=== PATIENT | female | born 1960 | race Caucasian/White ===

== ENCOUNTER 2024-01-12 12:51 | Emergency (ER) | payer OTHER, SELFPAY ==
--- NOTE | ~2024-01-12 | XR_ITS ---
EXAMINATION: XR CHEST CLINICAL INFORMATION: Shortness of breath. Wheezing. COMPARISON: None available. TECHNIQUE: Frontal view of the chest was obtained. FINDINGS: Heart size is normal. There is no consolidation. There is no large pleural effusion or pneumothorax. No acute osseous abnormality. XR/XR chest 1V IMPRESSION: No acute cardiopulmonary disease.
[2024-01-12 13:04] VITALS: BP 155/76; PULSE 75; RESP 18; TEMP 36.4; O2SAT 99; BMI 26.8
--- NOTE | 2024-01-12 13:04 | ED.GENADULT ---
HPI - General Adult General Chief complaint: Upper Respiratory Symptoms Stated complaint: Not Feeling Well Time Seen by Provider: 01/12/24 17:35 Source: patient Mode of arrival: ambulatory Limitations: no limitations History of Present Illness HPI narrative: 63-year-old female current daily smoker, presenting with cough, fatigue, malaise, headache, myalgias, wheezing x3 days. Patient reports that this morning she was feeling worse which is what prompted her to come into the emergency department. She denies associated chest pain, shortness breath, fevers, chills, joint pain, nausea, vomiting, abdominal pain, diarrhea. She does report that she recently found a tick on her sock, was not attached to her skin or body however she wants to get checked in ensure that she is not positive for Lyme disease due to worsening fatigue. Patient does report she gets low-dose CT scans she had 1 done recently which was normal. She denies history of COPD or emphysema. Related Data Previous Rx's ?Medication ?Instructions ?Recorded albuterol sulfate 90 mcg/actuation 2 inh inhalation Q4-6H PRN 01/12/24 breath activated powder inhaler shortness of breath or wheezing #1 ea doxycycline hyclate 100 mg capsule 100 mg PO BID 10 days #20 caps 01/12/24 prednisone 20 mg tablet 40 mg (2 x 20 mg) PO DAILY 5 days 01/12/24 #10 tabs Allergies Allergy/AdvReac Type Severity Reaction Status Date / Time cephalexin Allergy Anaphylaxis Verified 01/12/24 13:07 codeine Allergy Anaphylaxis Verified 01/12/24 13:07 morphine Allergy Anaphylaxis Verified 01/12/24 13:07 Review of Systems Review of Systems: Yes all other systems are reviewed and are negative [facility] Past Medical History Attestation statement: The following information was validated with the patient. Source: old records reviewed and nursing notes reviewed Social History Social History Advance Directives: No Advance Directives Information Provided: Yes Do you have a plan to hurt others: No Plan Physical Exam ED Vital Signs: Vital Signs - 24 hr 01/12/24 13:04 Temperature 97.5 F Pulse Rate 75 Respiratory Rate 18 Blood Pressure 155/76 H Pulse Oximetry 99 Oxygen Delivery Method Room Air BMI result Body Mass Index 26.8 vss Appearance: Alert.? Oriented X3.? No acute distress.? Head: Normocephalic, atraumatic, no step-offs or deformities Eyes: Pupils equal, round and reactive to light.? Neck: Normal inspection.? Neck supple.? CVS: Normal heart rate and rhythm.? Pulses normal.? Respiratory: No respiratory distress.? Breath sounds diffuse expiratory wheezing.? Abdomen: Soft and nontender.? Skin: Skin warm and dry.? Normal skin color.? Normal skin turgor.? Extremities: No lower extremity edema.? No calf ttp. 5/5 strength to bilateral upper and lower extremities Back: No midline tenderness, no C-spine tenderness, full range of motion, no CVA tenderness bilaterally Neuro: Oriented X 3.? No motor deficit.? No sensory deficit. CN 2-12 intact Course Course Course Narrative: This is a rapid medical exam completed by Leo TEST ENGINEERING INTERN: Additional HPI, ROS, PE not included below will be deferred to primary provider. C/O generalized body aches, neck stiffness without change in ROM, and fatigue for the past couple of days. States she has been outside gardening recently and has seen ticks on her socks and insect bites on her body without seeing the bugs that bit her. Denies fevers, cough, congestion. Took a Covid test at home and negative. Medical Decision Making Medical Decision Making [facility] Narrative: 1800 63 year old female presents w/ fatigue, malaise, cough, headache, stiff neck x3 days. Also concerned because she found a tick on her sock which she does not think it was ever attached. Physical exam diffuse expiratory wheezing. History and physical exam concerning for possible chronic lung disease versus bronchitis versus viral illness versus flu versus COVID versus RSV. Unlikely pneumonia, PE, ACS, dissection, acute respiratory distress. Will check her for tick-borne illnesses although low suspicion as tick was not attached. Headache likely secondary to viral illness/congestion unlikely intracranial hemorrhage, stroke posterior stroke Plan viral testing, basic labs, tick-borne panel, bronch protocol and chest x-ray Differential Diagnosis Differential Diagnoses: The differential diagnosis associated with the presentation includes History and physical exam concerning for possible chronic lung disease versus bronchitis versus viral illness versus flu versus COVID versus RSV. Unlikely pneumonia, PE, ACS, dissection, acute respiratory distress. Will check her for tick-borne illnesses although low suspicion as tick was not attached. Headache likely secondary to viral illness/congestion unlikely intracranial hemorrhage, stroke posterior stroke Admission/Observation Consideration of admission/observation: Escalation of care including admission/observation considered Lab Data [facility] Lab Attestation statement: I reviewed the patient's lab results. 01/12/24 13:15 01/12/24 13:15 Labs: Lab Results 01/12/24 Range/Units 13:15 WBC 8.5 (4.8-10.8) X10*3/uL RBC 4.78 (4.20-5.50) X10*6/uL Hgb 14.9 (12.0-16.0) g/dl Hct 42.6 (37.0-47.0) % MCV 89.1 (80.0-98.0) fL MCH 31.2 (27.0-33.0) pg MCHC 35.0 (31.0-35.0) g/dl RDW 13.2 (11.0-16.0) % Plt Count 294 (160-400) X10*3/uL MPV 10.4 (9.4-12.3) fL Immature Gran % (Auto) 0.2 (0.0-0.4) % Neut % (Auto) 68.4 (45-73) % Lymph % (Auto) 20.8 (20-40) % [place] % (Auto) 6.8 (2-11) % Eos % (Auto) 2.7 (0-4) % Baso % (Auto) 1.1 (0-2) % Lymph # (Auto) 1.8 (1.2-4.9) X10*3/uL [place] # (Auto) 0.6 (0.1-1.2) X10*3/uL Eos # (Auto) 0.2 (0.0-0.4) X10*3/uL Baso # (Auto) 0.1 (0.0-0.2) X10*3/uL Abs Immat Gran (auto) 0.02 (0.00-0.03) X10*3/uL Absolute Neuts (auto) 5.8 (2.0-8.3) x10*3/uL Absolute Nucleated RBC 0.000 (0.0-0.012) X10*3/uL Nucleated RBC % (auto) 0.0 (0.0-0.2) /100WBC Sodium 140 (135-145) mmol/L Potassium 3.9 (3.3-5.1) mmol/L Chloride 105 (96-108) mmol/L Carbon Dioxide 25 (22-29) mmol/L Anion Gap 14 (12-20) BUN 11 (9-16) mg/dL Creatinine 0.77 (0.5-1.4) mg/dL Estim Creat Clear Calc 74.8 Estimated GFR > 60 Random Glucose 106 (60-115) mg/dL Calcium 9.9 (8.4-10.2) mg/dL Total Bilirubin 0.5 (0.0-1.0) mg/dL AST 21 (5-31) U/L ALT 16 (0-31) U/L Alkaline Phosphatase 54 (39-117) U/L Total Protein 7.6 (6.5-8.0) g/dL Albumin 4.6 (3.5-5.0) g/dL Influenza Type A (PCR) NEGATIVE (Negative) Influenza Type B (PCR) NEGATIVE (Negative) RSV RNA Qual (PCR) NEGATIVE (Negative) SARS-CoV-2 RNA (RT-PCR) NEGATIVE (Negative) Independent Interpretation I performed an independent interpretation of an: Plain X-Ray (XR/XR chest 1V IMPRESSION: No acute cardiopulmonary disease. ) Radiology Impression Discussion of test interpretation with radiology: I have reviewed the radiologist's reading. External Record Review External record reviewed: Inpatient record, Office record, Outpatient record, Prior outpatient labs, Prior outpatient radiology, Primary care record and Outside ED record Prescription Management I considered prescription management with: Antibiotic and Other (prednsione) Critical Care Time Critical Care Time Critical Care Time: No Discharge Plan Discharge Clinical Impression: Bronchitis, Diffuse wheezing Patient Disposition: Home, Self-Care Instructions: Acute Bronchitis (ED) Additional Instructions: Take your medications as prescribed. If you were prescribed antibiotics today, it is important that you take your medication to their entirety, do not skip any doses, do not finish them early. Follow-up with your primary care provider this week. Return to the emergency department with new or worsening symptoms. In case of emergency call 911 Prescriptions: New albuterol sulfate 90 mcg/actuation aerosol powdr breath activated 2 inh inhalation Q4-6H PRN (Reason: shortness of breath or wheezing) Qty: 1 0RF doxycycline hyclate 100 mg capsule 100 mg PO BID 10 Days Qty: 20 0RF prednisone 20 mg tablet 40 mg PO DAILY 5 Days Qty: 10 0RF Referrals: Physician,None [Primary Care Provider] - 2 days Stand Alone Forms: Work/School Release Print Language: Luxembourgish
[2024-01-12 13:19] LABS: MANUAL DIFF FLAG NO
[2024-01-12 13:22] LABS: Basophils Absolute Auto 0.1 X10*3/uL (0.0-0.2); Basophils Percent Auto 1.1 % (0-2); Eosinophils Absolute Auto 0.2 X10*3/uL (0.0-0.4); Eosinophils Percent Auto 2.7 % (0-4); Hematocrit 42.6 % (37.0-47.0); Hemoglobin 14.9 g/dl (12.0-16.0); Imm Gran Abs Auto 0.02 X10*3/uL (0.00-0.03); Imm Gran Pct Auto 0.2 % (0.0-0.4); Lymphocytes Absolute Auto 1.8 X10*3/uL (1.2-4.9); Lymphocytes Percent Auto 20.8 % (20-40); Mean Corpuscular Hemoglobin 31.2 pg (27.0-33.0); Mean Corpuscular Volume 89.1 fL (80.0-98.0); Mean Platelet Volume 10.4 fL (9.4-12.3); Monocytes Absolute Auto 0.6 X10*3/uL (0.1-1.2); Monocytes Percent Auto 6.8 % (2-11); Neutrophils Absolute Auto 5.8 x10*3/uL (2.0-8.3); Neutrophils Percent Auto 68.4 % (45-73); Platelet Count 294 X10*3/uL (160-400); Red Blood Count 4.78 X10*6/uL (4.20-5.50); Red Cell Distribution Width 13.2 % (11.0-16.0); White Blood Count 8.5 X10*3/uL (4.8-10.8)
[2024-01-12 13:41] LABS: Alanine Aminotransferase 16 U/L (0-31); Albumin Level 4.6 g/dL (3.5-5.0); Alkaline Phosphatase 54 U/L (39-117); Anion Gap 14 (12-20); Aspartate Amino Transferase 21 U/L (5-31); Bilirubin Total 0.5 mg/dL (0.0-1.0); Blood Urea Nitrogen 11 mg/dL (9-16); Calcium 9.9 mg/dL (8.4-10.2); Carbon Dioxide 25 mmol/L (22-29); Chloride 105 mmol/L (96-108); Creatinine Clr Calc Pharmacy 74.8; Estimated Glomerular Filt Rate > 60; Glucose Random 106 mg/dL (60-115); Potassium 3.9 mmol/L (3.3-5.1); Sodium 140 mmol/L (135-145); Total Protein 7.6 g/dL (6.5-8.0)
[2024-01-12 14:01] LABS: Influenza A PCR NEGATIVE (Negative); Influenza B PCR NEGATIVE (Negative); Resp Syncy Virus RNA Qual PCR NEGATIVE (Negative); SARS COV2 PCR INHOUSE NEGATIVE (Negative)
[2024-01-12] MEDS: Albuterol Sulfate 2.5 MG, Albuterol/Iprat 2.5/0.5MG 3 ML 3 ML INHALE (18:32)
[2024-01-12 18:33] VITALS: PULSE 71; RESP 22; O2SAT 99
[2024-01-12 18:41] VITALS: BP 119/61; PULSE 70; RESP 18; O2SAT 98
[2024-01-12 18:47] VITALS: BP 119/61; PULSE 70; RESP 16; TEMP 36.4; O2SAT 98
[2024-01-14 09:03] LABS: A. Phagocytphilium DNA,RT-PCR NOT DETECTED (NOT DETECTED); Babesia Microti DNA, RT-PCR NOT DETECTED (NOT DETECTED); Borrelia Miyamotoi,DNA RT-PCR NOT DETECTED (NOT DETECTED); E.Chaffeensis DNA RT-PCR NOT DETECTED (NOT DETECTED); Lyme(Borrelia ssp)DNA RT-PCR NOT DETECTED (NOT DETECTED)
== END 2024-01-12 18:51 | disposition home or self-care (01) ==
PROVIDERS: Nurse Practitioner Family; Emergency Provider Student in an Organized Health Care Education/Training Program
DX: J40 Bronchitis, not specified as acute or chronic (principal); R06.2 Wheezing
CPT/HCPCS: 0241U; 36415; 71045; 80053; 85025; 87468; 87469; 87478; 87484; 87798; 99284

== ENCOUNTER 2025-05-24 19:43 | Emergency (ER) | payer OTHER, SELFPAY ==
--- NOTE | ~2025-05-24 | XR_ITS ---
CLINICAL HISTORY: pain, injury 2 view right tibia-fibula Comparison: None provided Findings No acute fractures or dislocations. Mildly limited evaluation of the right ankle related to patient positioning. Nonspecific edema identified within the right lower leg soft tissues. No radiopaque foreign body. IMPRESSION: 1. No acute fracture or dislocation injury identified at the right tibia or right fibula. This document has been electronically signed by: Akbar Savage MD on 05/24/2025 21:34:04
--- NOTE | ~2025-05-24 | XR_ITS ---
CLINICAL HISTORY: pain, injury 3 view left elbow Comparison: None provided Findings: No acute fractures or dislocations. No joint effusion. No radiopaque foreign body. IMPRESSION: 1. No acute fracture or dislocation injury identified at the left elbow. This document has been electronically signed by: Akbar Savage MD on 05/24/2025 21:30:23
[2025-05-24 19:59] VITALS: BP 115/73; PULSE 80; RESP 18; TEMP 36.4; O2SAT 96; BMI 26.8
--- NOTE | 2025-05-24 20:06 | ED_ITS ---
HPI - General Adult General Chief complaint: Extremity Injury, Lower Stated complaint: rt leg injury Time Seen by Provider: 05/24/25 21:12 History of Present Illness ED Provider: Michele WEBER narrative: The patient is a 64-year-old woman who says that about 10 days ago she slipped and fell as she was stepping onto her porch. She says that she open the sliding door and then stepped down to a wooden step which was not firmly attached to the deck below. She put her weight at the far end of the wooden step and the steps slipped over and she fell down. She struck her right baez against the step as she fell. She also landed on her left elbow. She did not hit her head or have any loss of consciousness. She had some bruising and abrasions to the right baez and some abrasions with the left arm and bruising to the left elbow but she did not think that she had broken anything. She developed some worsening bruising to the right lower leg and some worsening swelling. Ultimately she thought that things were improving but over the last day or 2 she started to have some worsening to the appearance of the abrasions on the right baez and some spreading of redness. She thought that perhaps she had developed a wound infection and came to the emergency room. Last tetanus approximately 7 years ago. Related Data Previous Rx's ?Medication ?Instructions ?Recorded albuterol sulfate 90 mcg/actuation 2 inh inhalation Q4 -6H PRN 01/12/24 breath activated powder inhaler shortness of breath or wheezing #1 ea doxycycline hyclate 100 mg capsule 100 mg PO BID 10 da ys #20 caps 01/12/24 prednisone 20 mg tablet 40 mg (2 x 20 mg) PO DAILY 5 days 01/12/24 #10 tabs dicloxacillin 500 mg capsule 500 mg PO QID 7 days #28 caps 05/24/25 doxycycline monohydrate 100 mg 100 mg PO BID 7 days #1 4 caps 05/24/25 capsule Allergies Allergy/AdvReac Type Severity Reaction Status Date / Time cephalexin Allergy Anaphylaxis Verified 05/24/25 20:01 codeine Allergy Anaphylaxis Verified 05/24/25 20:01 morphine Allergy Anaphylaxis Verified 05/24/25 20:01 Review of Systems 2 Review of Systems: Yes all other systems are reviewed and are negative [facility] Social History Social History Substance Use Type: Marijuana Advance Directives: No Advance Directives Information Provided: Yes Do you have a plan to hurt others: No Plan Physical Exam ED Vital Signs: Vital Signs - 24 hr 05/24/25 19:59 05/24/25 21:16 Temperature 97.6 F 97.6 F Pulse Rate 80 80 Respiratory Rate 18 18 Blood Pressure 115/73 101/62 Pulse Oximetry 96 96 Oxygen Delivery Method Room Air Room Air BMI result Body Mass Index 26.8 Const Other: The patient is awake, alert, pleasant, cooperative. She does not appear in any distress. She does not appear toxic. Orientation/consciousness: patient oriented x3 HENMT Other: Face is symmetrical, mucous membranes moist Eyes General: appearance normal, both eyes and all related structures Neck Neck: Yes normal visual inspection and Yes full ROM Resp Effort & Inspection: normal respiratory effort Auscultation: clear to auscultation bilaterally Cardio Rate: regular rate Rhythm: regular rhythm Heart sounds: S1 normal heart sound present and S2 normal heart sound present Skin Other: The patient has a patch of erythematous lesions to the mid right baez associated with some generalized erythema. Neuro General: patient oriented x3, gait normal, tone normal, moves all extremities, no focal motor deficits and CN's II-XI intact bilaterally Extrem Other: There was no swelling to the left elbow. There are some small abrasions to the left mid forearm. She moves left elbow well. There is some erythema to the right anterior baez but she can move the ankle and the knee well. No deformity. Course Course Course Narrative: Rapid medical examination performed in triage by Chandni Buck PA-C. Patient is a 64 year old assigned female at presenting to the emergency department with right lower leg and left elbow injury. Detailed physical exam and review of systems are deferred to the office clinician. Imaging ordered. Patient placed back in the waiting room pending room availability and results. Medical Decision Making Medical Decision Making [facility] Narrative: The patient is a 64-year-old woman who had a mechanical fall about 10 days ago in which she injured her right chin and her left elbow. She seems to have had a abrasion type injury to the baez as well as a direct blow. I believe that things seemed to be healing but over the last day or 2 she is concerned that she has developed an infection because of worsening redness and discomfort to the skin of the right baez. On exam I think the area has an impetiginous appearance. X-rays of the left elbow and lower leg has been ordered at triage. These are negative. I think the patient has a wound infection related to her abrasion from the injury. There was an impetiginous the appearance to the infection. The area was quite moist with some discharge. This was swabbed and sent for culture. She was started on doxycycline. She has a cephalexin allergy. She will be prescribed doxycycline and dicloxacillin. She has had a tetanus shot within the last 10 years. Discharge Plan Discharge Clinical Impression: Wound infection Patient Disposition: Home, Self-Care Additional Instructions: I have sent prescriptions for to antibiotics to treat what seems to be a wound infection. Please take the doxycycline 2 times a day, approximately every 12 hours. Please take the dicloxacillin 4 times a day, approximately every 6 hours. I would recommend resting and taking it easy and trying to keep your right leg elevated often. Please stay in touch with your regular doctor for additional advice as needed. Return to the Emergency Room if you feel these antibiotics are not working, especially if you feel that the infection looks worse. However it may take 24 hours on antibiotics to start to see improvement. Prescriptions: New doxycycline monohydrate 100 mg capsule 100 mg PO BID 7 Days Qty: 14 0RF dicloxacillin 500 mg capsule 500 mg PO QID 7 Days Qty: 28 0RF No Action albuterol sulfate 90 mcg/actuation aerosol powdr breath activated 2 inh inhalation Q4-6H PRN (Reason: shortness of breath or wheezing) Qty: 1 0RF doxycycline hyclate 100 mg capsule 100 mg PO BID 10 Days Qty: 20 0RF prednisone 20 mg tablet 40 mg PO DAILY 5 Days Qty: 10 0RF Referrals: [facility] [Provider Group] Print Language: Kiswahili
[2025-05-24 21:16] VITALS: BP 101/62; PULSE 80; RESP 18; TEMP 36.4; O2SAT 96
--- OUTSIDE RECORDS SUMMARY | 2025-05-24 21:23 | XMS_ITS | Encounter Summary ---
Author Organization [facility] Address [address] [place] [address] Care Team Providers Care Commercial Door Installer Name Role Phone Naty Goldstein INSTRUCTIONAL INTERVENTIONIST Primary Care Provider [phone] Encounter Details Date Type Department Care Team (Late st Contact Info) Description 03/14/2014 Ophthalmology Data Conversion [facility] Historical Conversion Department [address] [place] [phone] Stephanie Santiago MD [address] [place] [address] Social History Tobacco Use Types Packs/Day Years Used Date Smoking Tobacco: Never Assessed Comments Unknown Sex and Gender Information Value Date Recorded Sex Assigned at Female 06/17/2023 11:41 AM EDT Legal Sex Female 1:18 PM EDT Gender Identity Female 06/17/2023 11:41 AM EDT Sexual Orientation Straight 06/17/2023 11 :41 AM EDT documented as of this encounter Plan of Treatment Not on file documented as of this encounter Visit Diagnoses Not on filedocumented in this encounter Additional Health Concerns Infection Onset Date Last Indicated Resolved Time COVID-19 - Suspected infection 10/11/2020 10/11/2020 06/04/2023 11:55 AM EDT COVID-19 - Confirmed infection 10/11/2020 10/11/2020 06/04/2023 10:34 PM EDT COVID-19 - Suspected infection 07/15/2021 07/15/2021 06/04/2023 10:35 PM EDT documented as of this encounter Care Teams Commercial Door Installer Relationship Specialty Start Date End Date Naty Goldstein NP [address] [place] [address] PCP - General Nurse Practitioner 07/03/23 12/28/24 documented as of this encounter
--- OUTSIDE RECORDS SUMMARY | 2025-05-24 21:23 | XMS_ITS | Encounter Summary ---
Author Organization [facility] Address [address] [place] [address] Care Team Providers Care Paper Roll Machine Operator Name Role Phone Naty Goldstein NP Primary Care Provider [phone] Encounter Details Date Type Department Care Team (Late st Contact Info) Description 09/27/2019 Ophthalmology Data Conversion [facility] Ophthalmology [address] [place] [phone] Suzie Elise MD [address] [place] [phone] Social History Tobacco Use Types Packs/Day Years [...] documented as of this encounter Care Teams Paper Roll Machine Operator Relationship Specialty Start Date End Date Naty Goldstein NP [address] [place] [phone] PCP - General Nurse Practitioner 07/03/23 12/28/24 documented as of this encounter
--- OUTSIDE RECORDS SUMMARY | 2025-05-24 21:23 | XMS_ITS | Encounter Summary ---
Author Organization [facility] Address [address] [place] [address] Care Team Providers Care Fleet Driver Name Role Phone Naty Goldstein LADLE BUILDER Primary Care Provider [phone] Encounter Details Date Type Department Care Team (Late st Contact Info) Description 11/17/2013 Ophthalmology Data Conversion [facility] Historical Conversion Department [address] [place] [phone] Stephanie Santiago MD [address] [place] [address] Social History Tobacco Use Types Packs/Day Years [...] documented as of this encounter Care Teams Fleet Driver Relationship Specialty Start Date End Date Naty Goldstein NP [address] [place] [address] PCP - General Nurse Practitioner 07/03/23 12/28/24 documented as of this encounter
--- OUTSIDE RECORDS SUMMARY | 2025-05-24 21:23 | XMS_ITS | Encounter Summary ---
Author Organization [facility] Address [address] [place] [address] Care Team Providers Care Explosives Operator Name Role Phone Naty Goldstein NP Primary Care Provider [phone] Encounter Details Date Type Department Care Team (Late st Contact Info) Description 08/18/2019 Ophthalmology Data Conversion [facility] Ophthalmology [address] [place] [phone] Suzie Elise MD [address] [place] [address] Social History Tobacco Use Types Packs/Day Years [...] documented as of this encounter Care Teams Explosives Operator Relationship Specialty Start Date End Date Naty Goldstein NP [address] [place] [phone] PCP - General Nurse Practitioner 07/03/23 12/28/24 documented as of this encounter
--- OUTSIDE RECORDS SUMMARY | 2025-05-24 21:23 | XMS_ITS | Encounter Summary ---
Author Organization [facility] Address [address] [place] [address] Care Team Providers Care Hole Digger Name Role Phone Naty Goldstein HOOP COILER Primary Care Provider [phone] Encounter Details Date Type Department Care Team (Late st Contact Info) Description 03/14/2014 Ophthalmology Data Conversion [facility] Historical Conversion Department [address] [place] [phone] Stephanie Santiago MD [address] [place] [address] Social History Tobacco Use Types Packs/Day Years [...] documented as of this encounter Care Teams Hole Digger Relationship Specialty Start Date End Date Naty Goldstein NP [address] [place] [address] PCP - General Nurse Practitioner 07/03/23 12/28/24 documented as of this encounter
--- OUTSIDE RECORDS SUMMARY | 2025-05-24 21:23 | XMS_ITS | Encounter Summary ---
Author Organization [facility] Address [address] [place] [address] Care Team Providers Care Minister Of Religion Name Role Phone Naty Goldstein ADMINISTRATIVE OFFICE CLERK Primary Care Provider [phone] Encounter Details Date Type Department Care Team (Late st Contact Info) Description 06/14/2015 Ophthalmology Data Conversion [facility] Historical Conversion Department [address] [place] [phone] Stephanie Santiago MD [address] [place] [address] Social History Tobacco Use Types Packs/Day Years [...] documented as of this encounter Care Teams Minister Of Religion Relationship Specialty Start Date End Date Naty Goldstein NP [address] [place] [address] PCP - General Nurse Practitioner 07/03/23 12/28/24 documented as of this encounter
--- OUTSIDE RECORDS SUMMARY | 2025-05-24 21:23 | XMS_ITS | Encounter Summary ---
Author Organization [facility] Address [address] [place] [address] Care Team Providers Care Nursing Education Consultant Name Role Phone Naty Goldstein NP Primary Care Provider [phone] Encounter Details Date Type Department Care Team (Late st Contact Info) Description 11/08/2019 Ophthalmology Data Conversion [facility] Ophthalmology [address] [place] [phone] Suzie Elise MD [address] [place] [address] Social History Tobacco Use Types Packs/Day Years [...] documented as of this encounter Care Teams Nursing Education Consultant Relationship Specialty Start Date End Date Naty Goldstein NP [address] [place] [id number] PCP - General Nurse Practitioner 07/03/23 12/28/24 documented as of this encounter
--- OUTSIDE RECORDS SUMMARY | 2025-05-24 21:23 | XMS_ITS | Encounter Summary ---
Author Organization [facility] Address [address] [place] [address] Care Team Providers Care Skiver Operator Name Role Phone Naty Goldstein NP Primary Care Provider [phone] Encounter Details Date Type Department Care Team (Late st Contact Info) Description 10/06/2019 Ophthalmology Data Conversion [facility] Ophthalmology [address] [place] [phone] Suzie Elise MD [address] [place] [address] Social History Tobacco Use Types Packs/Day Years [...] documented as of this encounter Care Teams Skiver Operator Relationship Specialty Start Date End Date Naty Goldstein NP [address] [place] [address] PCP - General Nurse Practitioner 07/03/23 12/28/24 documented as of this encounter
--- OUTSIDE RECORDS SUMMARY | 2025-05-24 21:23 | XMS_ITS | Encounter Summary ---
Author Organization [facility] Address [address] [place] [address] Care Team Providers Care Project Coach Name Role Phone Naty Goldstein ROSS FURNACE OPERATOR Primary Care Provider [phone] Encounter Details Date Type Department Care Team (Late st Contact Info) Description 06/07/2015 Ophthalmology Data Conversion [facility] Historical Conversion Department [address] [place] [phone] Stephanie Santiago MD [address] [place] [address] Social History Tobacco Use Types Packs/Day Years [...] documented as of this encounter Care Teams Project Coach Relationship Specialty Start Date End Date Naty Goldstein NP [address] [place] [address] PCP - General Nurse Practitioner 07/03/23 12/28/24 documented as of this encounter
--- OUTSIDE RECORDS SUMMARY | 2025-05-24 21:23 | XMS_ITS | Encounter Summary ---
Author Organization [facility] Address [address] [place] [address] Care Team Providers Care Rubber Moulding Machine Operator Name Role Phone Naty Goldstein COMPOUNDER HELPER Primary Care Provider [phone] Encounter Details Date Type Department Care Team (Late st Contact Info) Description 06/21/2015 Ophthalmology Data Conversion [facility] Historical Conversion Department [address] [place] [address] Stephanie Santiago MD [address] [place] [address] Social History Tobacco Use Types Packs/Day Years [...] documented as of this encounter Care Teams Rubber Moulding Machine Operator Relationship Specialty Start Date End Date Naty Goldstein NP [address] [place] [address] PCP - General Nurse Practitioner 07/03/23 12/28/24 documented as of this encounter
--- OUTSIDE RECORDS SUMMARY | 2025-05-24 21:23 | XMS_ITS | Encounter Summary ---
Author Organization [facility] Address [address] [place] [address] Care Team Providers Care Wetlands Technician Name Role Phone Naty Goldstein JIG BORING MACHINE OPERATOR FOR METAL Primary Care Provider [phone] Encounter Details Date Type Department Care Team (Late st Contact Info) Description 03/10/2014 Ophthalmology Data Conversion [facility] Historical Conversion Department [address] [place] [address] Stephanie Santiago MD [address] [place] [address] Social History Tobacco Use Types Packs/Day Years [...] documented as of this encounter Care Teams Wetlands Technician Relationship Specialty Start Date End Date Naty Goldstein NP [address] [place] [address] PCP - General Nurse Practitioner 07/03/23 12/28/24 documented as of this encounter
--- OUTSIDE RECORDS SUMMARY | 2025-05-24 21:23 | XMS_ITS | Encounter Summary ---
Author Organization [facility] Address [address] [place] [address] Care Team Providers Care Client Account Assistant Name Role Phone Naty Goldstein BLAST FURNACE SUPERVISOR Primary Care Provider [phone] Encounter Details Date Type Department Care Team (Late st Contact Info) Description 03/08/2015 Ophthalmology Data Conversion [facility] Historical Conversion Department [address] [place] [address] Stephanie Santiago MD [address] [place] [address] Social History Tobacco Use Types Packs/Day Years [...] documented as of this encounter Care Teams Client Account Assistant Relationship Specialty Start Date End Date Naty Goldstein NP [address] [place] [address] PCP - General Nurse Practitioner 07/03/23 12/28/24 documented as of this encounter
--- OUTSIDE RECORDS SUMMARY | 2025-05-24 21:23 | XMS_ITS | Encounter Summary ---
Author Organization [facility] Address [address] [place] [address] Care Team Providers Care Cleaning Custodian Name Role Phone Naty Goldstein INFECTIOUS DISEASE TECHNICIAN Primary Care Provider [phone] Encounter Details Date Type Department Care Team (Late st Contact Info) Description 08/14/2015 Ophthalmology Data Conversion [facility] Historical Conversion Department [address] [place] [phone] Stephanie Santiago MD [address] [place] [address] Social History Tobacco Use Types Packs/Day Years [...] documented as of this encounter Care Teams Cleaning Custodian Relationship Specialty Start Date End Date Naty Goldstein NP [address] [place] [address] PCP - General Nurse Practitioner 07/03/23 12/28/24 documented as of this encounter
--- OUTSIDE RECORDS SUMMARY | 2025-05-24 21:23 | XMS_ITS | Encounter Summary ---
Author Organization [facility] Address [address] [place] [address] Care Team Providers Care Kelp Or Seagrass Gatherer Name Role Phone Naty Goldstein BILLING ASSOCIATE Primary Care Provider [phone] Encounter Details Date Type Department Care Team (Late st Contact Info) Description 03/08/2015 Ophthalmology Data Conversion [facility] Historical Conversion Department [address] [place] [address] Stephanie Santiago MD [address] [place] [address] Social History Tobacco Use Types Packs/Day Years [...] documented as of this encounter Care Teams Kelp Or Seagrass Gatherer Relationship Specialty Start Date End Date Naty Goldstein NP [address] [place] [address] PCP - General Nurse Practitioner 07/03/23 12/28/24 documented as of this encounter
--- OUTSIDE RECORDS SUMMARY | 2025-05-24 21:23 | XMS_ITS | Encounter Summary ---
Author Organization [facility] Address [address] [place] [address] Care Team Providers Care Supervisor Contingents Name Role Phone Naty Goldstein RN DOCUMENTATION SPECIALIST Primary Care Provider [phone] Encounter Details Date Type Department Care Team (Late st Contact Info) Description 05/08/2015 Ophthalmology Data Conversion [facility] Historical Conversion Department [address] [place] [address] Stephanie Santiago MD [address] [place] [address] Social History Tobacco Use Types Packs/Day Years [...] documented as of this encounter Care Teams Supervisor Contingents Relationship Specialty Start Date End Date Naty Goldstein NP [address] [place] [address] PCP - General Nurse Practitioner 07/03/23 12/28/24 documented as of this encounter
--- OUTSIDE RECORDS SUMMARY | 2025-05-24 21:23 | XMS_ITS | Encounter Summary ---
Author Organization [facility] Address [address] [place] [address] Care Team Providers Care Violin Teacher Name Role Phone Naty Goldstein LAUNCH STEWARD Primary Care Provider [phone] Encounter Details Date Type Department Care Team (Late st Contact Info) Description 11/17/2013 Ophthalmology Data Conversion [facility] Historical Conversion Department [address] [place] [address] Stephanie Santiago MD [address] [place] [address] Social History Tobacco Use Types Packs/Day Years [...] documented as of this encounter Care Teams Violin Teacher Relationship Specialty Start Date End Date Naty Goldstein NP [address] [place] [address] PCP - General Nurse Practitioner 07/03/23 12/28/24 documented as of this encounter
--- OUTSIDE RECORDS SUMMARY | 2025-05-24 21:23 | XMS_ITS | Encounter Summary ---
Author Organization [facility] Address [address] [place] [address] Care Team Providers Care Community Product Specialist Name Role Phone Naty Goldstein NP Primary Care Provider [phone] Encounter Details Date Type Department Care Team (Late st Contact Info) Description 03/12/2020 Ophthalmology Data Conversion [facility] Historical Conversion Department [address] [place] [address] [address] Social History Tobacco Use Types Packs/Day Years [...] documented as of this encounter Care Teams Community Product Specialist Relationship Specialty Start Date End Date Naty Goldstein NP [address] [place] [address] PCP - General Nurse Practitioner 07/03/23 12/28/24 documented as of this encounter
--- OUTSIDE RECORDS SUMMARY | 2025-05-24 21:23 | XMS_ITS | Clinical Summary ---
Author Organization [facility] Address [address] [place] [address] Care Team Providers Care Telephoto Engineer Name Role Phone Unavailable Primary Care Provider Unavailabl e Allergies Active Allergy Reactions Criticality Noted Date Comments Acetaminophen-Codeine Vomiting 07/13/2023 Amoxicillin Hives 06/11/2017 Questionable rash around the eyes bilateral Cephalexin Anaphylaxis,Rash,Swe lling High 06/04/2017 Facial swelling and SOB outside of [place], [place] Clindamycin Hives,Rash,Swelling High 06/06/2017 Codeine Anaphylaxis,Other (see comments),Nausea,Vom iting High 05/05/2015 Morphine Anaphylaxis,Slow Heart Rate,Unknown High 05/05/2015 Oxycodone Nausea,Vomiting 07/13/2023 Sulfamethoxazole-Trime thoprim Hives,Rash,Swelling High 06/11/2017 Questionable rash around bilateral eyes Medications * This document contains information received from the source organization and may not represent a complete record from that organization. multivitamin (THERAGRAN) tablet Take 1 tablet by mouth once a day. Active Vitamin D3 25 mcg (1,000 unit) capsule Take 1 capsule by mouth once a day. Patient obtains over the counter Active calcium carbonate 260 mg calcium (648 mg) tablet Take by mouth. Patient obtains from over the counter. She is unsure of the dose. Active venlafaxine XR (EFFEXOR XR) 150 mg capsule TAKE 1 CAPSULE (150 MG TOTAL) BY MOUTH IN THE MORNING 90 capsule 5 Active clonazePAM (KlonoPIN) 1 mg tabletIndicatio ns:panic disorder Take 1 tablet (1 mg total) by mouth 2 times a day Indications: panic disorder. for anxiety 60 tablet 2 5 Active venlafaxine XR (EFFEXOR XR) 75 mg capsule Take 1 capsule (75 mg total) by mouth once a day. Take with a 150mg capsule for 225mg total. 90 capsule Active nicotine (NICOTROL NS) 10 mg/mL spray,non-aeros ol nasal spray Administer 1 spray into each nostril every hour as needed (nicotine craving). No more than 10 sprays per hour or 80 sprays per day. 10 mL Active Active Problems Problem Noted Date Diagnosed Date At average risk for colon cancer 08/24/2023 Bereavement reaction 08/24/2023 Chronic left shoulder pain 08/24/2023 Chronic renal insufficiency, stage I 08/24/2023 COVID-19 virus infection 08/24/2023 Elevated glucose 08/24/2023 Eosinophilia 08/24/2023 Fracture of transverse process of lumbar vertebr a 08/24/2023 History of thumb surgery 08/24/2023 Impingement syndrome of left shoulder 08/24/2023 Lumbar radiculopathy, right 08/24/2023 Lumbar spondylosis 08/24/2023 Nausea 08/24/2023 Nontraumatic incomplete tear of left rotator cuf f 08/24/2023 Osteopenia 08/24/2023 Panic disorder with agoraphobia 08/24/2023 Post-menopause 08/24/2023 Sensorineural hearing loss (SNHL) of both ears 1 10/25/2022 Sexual dysfunction 08/24/2023 Shoulder pain, right 08/24/2023 Spinal stenosis 08/24/2023 Traumatic complete tear of right rotator cuff Trigger middle finger of right hand 08/24/2023 Generalized anxiety disorder 07/13/2023 PTSD (post-traumatic stress disorder) 07/13/2023 MDD (major depressive disorder), recurrent episo de, mild 07/13/2023 Nicotine dependence, cigarettes, uncomplicated 1 Obesity 12/05/2016 Overview (08/24/2023): She has been trying healthy diet and exercises at regular basis. Encouraged to continue low-calorie diet and exercises. Chronic back pain 08/06/2016 Overview (08/24/2023): Stable symptoms. Intermittent flare of back pain, mid to low back pain. She underwent T12 and L1 disc excision course to transverse cystectomy and fusion surgery at [facility], by Dr. Nelson Newby on 08/23/2014. Minimal improvement of back pain since that surgery. Subsequently she received spinal steroid injection at [place] [facility] without any significant improvement. Not taking any medication.Reviewed use and effect of tramadol in detail,. Depression 08/06/2016 Overview (08/24/2023): Doing well now. Taking Effexor. tolerating well. Follow-up with therapist/counselor at regular interval at [facility].Denied any suicidal or homicidal plan, thought or attempt, Hearing difficulty 08/06/2016 Overview (08/24/2023): Now using hearing aid, excellent result., Hyperlipidemia 08/06/2016 Overview (08/24/2023): LDL goal is less than 130, taking statin. Tolerating statin well. Lab today. Constipation 08/06/2016 Overview (08/24/2023): Doing well now. Will controlled with senna as needed intake. Colonoscopy 2011 revealed hyperplastic polyp. Taking MiraLAX as needed with benefit. No concern at this time. Smoking addiction 08/06/2016 Overview (08/24/2023): Continuing smoking half pack per day. Not motivated to quit smoking at this time despite of counseling. Try to quit smoking in past without any success., Resolved Problems Problem Noted Date Diagnosed Date Resolved Date Asthma 08/06/2016 02/29/2024 Overview (08/24/2023): Mild intermittent asthma. Well controlled with use of rescue inhaler as needed. Encouraged to quit smoking , not motivated to quit smoking at this time despite of counseling, Immunizations Immunization Administration Dates Next Due Influenza, Injectable, Quadr ivalent, Preservative Free 06/21/2018,08/06/2016 Influenza, Trivalent, MDV, Injectable 07/15/2014 ,07/05/2013 Influenza, Unspecified 07/14/2023,08/06/2016,09/2013 Pneumococcal Polysaccharide Vaccine, 23 Valent 07/15/2014 Tetanus Toxoid, Reduced Diph theria Toxoid, and Acellular Pertussis Vaccine, Adsorbed 06/09/2017 Family History Medical History Relation Name Comments Alcohol abuse Father Kidney disease Father Alcohol abuse Mother Liver cancer Mother Relation Name Status Comments Father during pro cedure to remove rectal polyps at age 79. Mother from liver cancer at age 69 not related to the alcoholism . Social History Tobacco Use Types Packs/Day Years Used Date Smoking Tobacco: Never Assessed Comments Unknown Sex and Gender Information Value Date Recorded Sex Assigned at Female 06/17/2023 11:41 AM EDT Legal Sex Female 1:18 PM EDT Gender Identity Female 06/17/2023 11:41 AM EDT Sexual Orientation Straight 06/17/2023 11 :41 AM EDT Last Filed Vital Signs Vital Sign Reading Time Taken Comments Blood Pressure 126/80 11/14/2024 2:20 PM EST Pulse 68 11/14/2024 2:20 PM EST Temperature - - Respiratory Rate - - Oxygen Saturation - - Inhaled Oxygen Concentration - - Weight 74.8 kg (165 lb) 03/03/2025 12:5 1 PM EDT patient reported Height 165.1 cm (5' 5 ) 01/18/2024 11:0 4 AM EDT patient reported Body Mass Index 27.46 01/18/2024 11:04 AM EDT Plan of Treatment Health Maintenance Due Date Last Done Comments Cervical Cancer Screening 1960 Cologuard 1960 Colon Cancer Screening 1960 Colonoscopy 1960 FOBT / Fit Test 1960 HIV Screening 1960 HPV and Pap Smear 1960 Hepatitis C Screening 1960 Pap Smear 1960 Sigmoidoscopy 1960 Zoster Vaccines (1 of 2) 2010 Pneumococcal Vaccine: 50+ Years (2 of 2 - PCV) 07/15/2015 07/15/2014 Alcohol/Substance Use Screening 09/14/2024 Oral Health Screening 09/14/2024 Social Drivers of Health Annual Screening 09/14/2024 Mammogram 05/04/2025 05/04/2023, 02/12, 01/12/2018, Additional history exists COVID-19 Vaccine (1 - 2023- season) 2025 Influenza Vaccine (#1) 2025 , 06/21/2018, 08/06/2016, Additional history exists Depression Screening and Follow-Up 03/03/2026 03/03/2025 DTaP,Tdap,and Td Vaccines (2 - Td or Tdap) 06/09/2027 06/09/2017 RSV Vaccine (60+ years old and patients) (1 - 1-dose 75+ series) 2035 Hepatitis B Vaccines Aged Out No long er eligible based on patient's age to complete this topic Procedures * Due to [place] Cell[employer] law, this organization might not be sharing negative HIV tests. Procedure Name Priority Date/Time Associated Diagnosis Comments [facility] SCREENING DIGITAL MAMMO Routine 05/04/2023 11:37 AM EDT from Last 3 Months or Most Recently Relevant to Health Maintenance Results * Due to [place] Cell[employer] law, this organization might not be sharing negative HIV tests. * [facility] Screening Digital Mammogram (05/04/2023 11:37 AM EDT) Anatomical Region Laterality Modality Breast Mammography 05/04/2023 11:3 7 AM EDT Narrative 05/14/2023 6:48 AM EDT DEPARTMENT OF RADIOLOGY Patient: BRENDA BRITT WES Unit #: [id number] Ordering MD: NOHEMY THORNTON MD : 1960 Procedure: Digital Mammo Screen Age: 62 Location: XRAY Exam Date: 05/04/23 Status: REG CLI Room/Bed: Primary MD: NOHEMY THORNTON MD Patient Order: [id number] Additional Copy: NOHEMY THORNTON MD - #[id number] - DIGSCRMAM BILATERAL DIGITAL TOMOSYNTHESIS SCREENING MAMMOGRAM WITH CAD: 05/04/2023 CLINICAL: Routine. Digital 2D mammogram, synthesized 2D views and 3D Tomosynthesis views were obtained. Current study was also evaluated with a Computer Aided Detection (CAD) system. Comparison is made to prior exams. There are scattered areas of fibroglandular density. No significant masses, calcifications, or other findings are seen in either breast. IMPRESSION: NEGATIVE There is no mammographic evidence of malignancy. A 1 year screening mammogram is recommended. This exam was interpreted at [place], [place]. POI: [place]. Electronically signed by: Lynette Sanchez M.D., cp/thien:05/13/2023 13:57:13 letter sent: A-2 Normal Benign Mammogram BI-RADS: [address] [facility] Procedure Note Lynette Sanchez MD - 06/09/2023 DEPARTMENTOF RADIOLOGY Carlene t: BRENDA BRITT WES Unit #:[id number] Ordering MD: NOHEMY THORNTON MD :1960 Procedure: Digital Mammo Screen Age:62 Location: XRAY ExamDate: 05/04/23 Status: REG CLIRoom/Bed: Primary MD: NOHEMY THORNTON MD PatientAcct #: [id number] Order:[id number] Additional Copy: NOHEMY THORNTON MD - #[id number] - DIGSCRMAM BILATERAL DIGITAL TOMOSYNTHESIS SCREENING MAMMOGRAM WITH CAD: 05/04/2023 CLINICAL: Routine. Digital 2D mammogram, synthesized 2D views and 3D Tomosynthesis views were obtained. Current study was also evaluated with a Computer Aided Detection (CAD) system. Comparison is made to prior exams. There are scattered areas of fibroglandular density. No significant masses, calcifications, or other findings are seen in either breast. IMPRESSION: NEGATIVE There is no mammographic evidence of malignancy. A 1 year screening mammogram is recommended. This exam was interpreted at [place], [place]. POI: [place]. Electronically signed by: Lynette Sanchez M.D., cp/thien:05/13/2023 13:57:13 letter sent: A-2 Normal Benign Mammogram BI-RADS: 1 Negative LISA us Nohemy Thornton MD IMG BI PROCEDURES Final Resul t from Last 3 Months or Most Recently Relevant to Health Maintenance Insurance [employer] [employer]
--- OUTSIDE RECORDS SUMMARY | 2025-05-24 21:23 | XMS_ITS | Encounter Summary ---
Author Organization [facility] Address [address] [place] [address] Care Team Providers Care Confectionery Cooker Name Role Phone Naty Goldstein SAP BW ARCHITECT Primary Care Provider [phone] Encounter Details Date Type Department Care Team (Late st Contact Info) Description 03/10/2014 Ophthalmology Data Conversion [facility] Historical Conversion Department [address] [place] [phone] Stephanie Santiago MD [address] [place] [address] Social History Tobacco Use Types Packs/Day Years [...] documented as of this encounter Care Teams Confectionery Cooker Relationship Specialty Start Date End Date Naty Goldstein NP [address] [place] [address] PCP - General Nurse Practitioner 07/03/23 12/28/24 documented as of this encounter
--- OUTSIDE RECORDS SUMMARY | 2025-05-24 21:23 | XMS_ITS | Encounter Summary ---
Author Organization [facility] Address [address] [place] [address] Care Team Providers Care Turner Splitter Machine Operator Name Role Phone Naty Goldstein NP Primary Care Provider [phone] Encounter Details Date Type Department Care Team (Late st Contact Info) Description 03/12/2020 Ophthalmology Data Conversion [facility] Historical Conversion Department [address] [place] [address] [address] Social History Tobacco Use Types Packs/Day Years [...] documented as of this encounter Care Teams Turner Splitter Machine Operator Relationship Specialty Start Date End Date Naty Goldstein NP [address] [place] [address] PCP - General Nurse Practitioner 07/03/23 12/28/24 documented as of this encounter
--- OUTSIDE RECORDS SUMMARY | 2025-05-24 21:23 | XMS_ITS | Encounter Summary ---
Author Organization [facility] Address [address] [place] [address] Care Team Providers Care Jewel Bearing Maker Name Role Phone Naty Goldstein NP Primary Care Provider [phone] Encounter Details Date Type Department Care Team (Late st Contact Info) Description 10/06/2019 Ophthalmology Data Conversion [facility] Ophthalmology [address] [place] [address] Suzie Elise MD [address] [place] [address] Social History Tobacco Use Types Packs/Day Years [...] documented as of this encounter Care Teams Jewel Bearing Maker Relationship Specialty Start Date End Date Naty Goldstein NP [address] [place] [address] PCP - General Nurse Practitioner 07/03/23 12/28/24 documented as of this encounter
--- OUTSIDE RECORDS SUMMARY | 2025-05-24 21:23 | XMS_ITS | Encounter Summary ---
Author Organization [facility] Address [address] [place] [address] Care Team Providers Care Salesperson China And Glassware Name Role Phone Naty Goldstein NP Primary Care Provider [phone] Encounter Details Date Type Department Care Team (Late st Contact Info) Description 08/18/2019 Ophthalmology Data Conversion [facility] Ophthalmology [address] [place] [address] Suzie Elise MD [address] [place] [address] Social History Tobacco Use Types Packs/Day Years [...] documented as of this encounter Care Teams Salesperson [employer] And Glassware Relationship Specialty Start Date End Date Naty Goldstein NP [address] [place] [address] PCP - General Nurse Practitioner 07/03/23 12/28/24 documented as of this encounter
--- OUTSIDE RECORDS SUMMARY | 2025-05-24 21:23 | XMS_ITS | Encounter Summary ---
Author Organization [facility] Address [address] [place] [address] Care Team Providers Care Family Coach Name Role Phone Naty Goldstein NP Primary Care Provider [phone] Encounter Details Date Type Department Care Team (Late st Contact Info) Description 11/08/2019 Ophthalmology Data Conversion [facility] Ophthalmology [address] [place] [address] Suzie Elise MD [address] [place] [address] Social History Tobacco Use Types Packs/Day Years [...] documented as of this encounter Care Teams Family Coach Relationship Specialty Start Date End Date Naty Goldstein NP [address] [place] [address] PCP - General Nurse Practitioner 07/03/23 12/28/24 documented as of this encounter
--- OUTSIDE RECORDS SUMMARY | 2025-05-24 21:23 | XMS_ITS | Encounter Summary ---
Author Organization [facility] Address [address] [place] [address] Care Team Providers Care Machine Design Teacher Name Role Phone Naty Goldstein NP Primary Care Provider [phone] Encounter Details Date Type Department Care Team (Late st Contact Info) Description 09/20/2019 Ophthalmology Data Conversion [facility] Ophthalmology [address] [place] [address] Suzie Elise MD [address] [place] [address] Social History Tobacco Use Types Packs/Day Years [...] documented as of this encounter Care Teams Machine Design Teacher Relationship Specialty Start Date End Date Naty Goldstein NP [address] [place] [address] PCP - General Nurse Practitioner 07/03/23 12/28/24 documented as of this encounter
--- OUTSIDE RECORDS SUMMARY | 2025-05-24 21:24 | XMS_ITS | Encounter Summary ---
Author Organization [facility] Address [address] [place] [address] Care Team Providers Care Cloth Stretcher Name Role Phone Naty Goldstein POCKET OPERATOR Primary Care Provider [phone] Encounter Details Date Type Department Care Team (Late st Contact Info) Description 07/05/2015 Ophthalmology Data Conversion [facility] Historical Conversion Department [address] [place] [address] Stephanie Santiago MD [address] [place] [address] Social History Tobacco Use Types Packs/Day Years [...] documented as of this encounter Care Teams Cloth Stretcher Relationship Specialty Start Date End Date Naty Goldstein NP [address] [place] [address] PCP - General Nurse Practitioner 07/03/23 12/28/24 documented as of this encounter
--- OUTSIDE RECORDS SUMMARY | 2025-05-24 21:24 | XMS_ITS | Encounter Summary ---
Author Organization [facility] Address [address] [place] [address] Care Team Providers Care Edge Stainer Machine Name Role Phone Naty Goldstein NP Primary Care Provider [phone] Encounter Details Date Type Department Care Team (Late st Contact Info) Description 09/01/2019 Ophthalmology Data Conversion [facility] Ophthalmology [address] [place] [phone] Suzie Elise MD [address] [place] [address] Social History Tobacco Use Types Packs/Day Years [...] documented as of this encounter Care Teams Edge Stainer Machine Relationship Specialty Start Date End Date Naty Goldstein NP [address] [place] [address] PCP - General Nurse Practitioner 07/03/23 12/28/24 documented as of this encounter
--- OUTSIDE RECORDS SUMMARY | 2025-05-24 21:24 | XMS_ITS | Encounter Summary ---
Author Organization [facility] Address [address] [place] [address] Care Team Providers Care Patient Safety Tech Name Role Phone Naty Goldstein CLAIMS ASSOCIATE Primary Care Provider Encounter Details Date Type Department Care Team (Late st Contact Info) Description 06/21/2015 Ophthalmology Data Conversion [facility] Historical Conversion Department [address] [place] [address] Stephanie Santiago MD [address] [place] [address] Social History Tobacco Use Types Packs/Day Years [...] documented as of this encounter Care Teams Patient Safety Tech Relationship Specialty Start Date End Date Naty Goldstein NP [address] [place] [address] PCP - General Nurse Practitioner 07/03/23 12/28/24 documented as of this encounter
--- OUTSIDE RECORDS SUMMARY | 2025-05-24 21:24 | XMS_ITS | Encounter Summary ---
Author Organization [facility] Address [address] [place] [address] Care Team Providers Care Secured Entrance Monitor Name Role Phone Naty Goldstein NP Primary Care Provider [phone] Encounter Details Date Type Department Care Team (Late st Contact Info) Description 09/15/2019 Ophthalmology Data Conversion [facility] Ophthalmology [address] [place] [address] Suzie Elise MD [address] [place] [address] Social History Tobacco Use Types Packs/Day Years [...] documented as of this encounter Care Teams Secured Entrance Monitor Relationship Specialty Start Date End Date Naty Goldstein NP [address] [place] [address] PCP - General Nurse Practitioner 07/03/23 12/28/24 documented as of this encounter
--- OUTSIDE RECORDS SUMMARY | 2025-05-24 21:24 | XMS_ITS | Encounter Summary ---
Author Organization [facility] Address [address] [place] [address] Care Team Providers Care Template Cutter Name Role Phone Naty Goldstein ADVENTURE GUIDE Primary Care Provider [phone] Encounter Details Date Type Department Care Team (Late st Contact Info) Description 07/05/2015 Ophthalmology Data Conversion [facility] Historical Conversion Department [address] [place] [address] Stephanie Santiago MD [address] [place] [address] Social History Tobacco Use Types Packs/Day Years [...] documented as of this encounter Care Teams Template Cutter Relationship Specialty Start Date End Date Naty Goldstein NP [address] [place] [address] PCP - General Nurse Practitioner 07/03/23 12/28/24 documented as of this encounter
[2025-05-24 21:46] VITALS: BP 101/62; PULSE 80; RESP 18; TEMP 36.4; O2SAT 96
== END 2025-05-24 21:46 | disposition home or self-care (01) ==
PROVIDERS: Emergency Provider Emergency Medicine
DX: L08.89 Other specified local infections of the skin and subcutaneous tissue (principal); M25.522 Pain in left elbow; F19.11 Other psychoactive substance abuse, in remission
CPT/HCPCS: 73080; 73590; 87070; 87077; 87186; 87205; 99283

== ENCOUNTER → 2025-05-24 20:06 | Outpatient (BNV) | payer OTHER, SELFPAY | PROVIDERS: Emergency Provider Emergency Medicine; Visit Provider Radiology Diagnostic Radiology | DX: M25.522 Pain in left elbow (principal); M79.661 Pain in right lower leg | CPT/HCPCS: 73080; 73590 ==

== ENCOUNTER 2025-05-28 11:25 | Emergency (ER) | payer OTHER, SELFPAY ==
[2025-05-28 11:38] VITALS: BP 120/74; PULSE 86; RESP 16; TEMP 36.4; O2SAT 95; BMI 21.6
--- NOTE | 2025-05-28 11:39 | ED.GENADULT ---
HPI - General Adult General Chief complaint: Allergic Reaction Stated complaint: medication reaction Time Seen by Provider: 05/28/25 12:52 Source: patient, RN notes reviewed and old records reviewed Mode of arrival: ambulatory Limitations: no limitations History of Present Illness ED Provider: SILVIA Keller HPI narrative: 54-year-old female presents to ED you a rash on the chest and right eye that began 1 day after starting dicloxacillin, doxycycline for a right lower leg wound. Patient was recently seen in the department on 05/24/25 for an injury on her right leg and was prescribed antibiotic therapy. Patient states she has been taking her antibiotics as prescribed. Patient states she woke up yesterday with intense itching on her chest in between bilateral breasts, and of the right eye. Patient states she has taken Benadryl, and used Benadryl cream on the area without effect. Patient states the itching has gotten so intense that prompted her to come to the ED for care today. Denies lip/tongue/mouth itching or tingling, nausea, vomiting, abdominal pain, chest pain, SOB, difficulty breathing. MD complaint: pruritic rash between breasts, R eye Related Data Previous Rx's ?Medication ?Instructions ?Recorded albuterol sulfate 90 mcg/actuation 2 inh inhalation Q4-6H PRN 01/12/24 breath activated powder inhaler shortness of breath or wheezing #1 ea doxycycline hyclate 100 mg capsule 100 mg PO BID 10 days #20 caps 01/12/24 prednisone 20 mg tablet 40 mg (2 x 20 mg) PO DAILY 5 days 01/12/24 #10 tabs dicloxacillin 500 mg capsule 500 mg PO QID 7 days #28 caps 05/24/25 doxycycline monohydrate 100 mg 100 mg PO BID 7 days #14 caps 05/24/25 capsule clotrimazole 1 % topical cream 1 appl topical BID #30 grams 05/28/25 hydrocortisone 1 % topical cream 1 appl topical ONCE #28.35 grams 05/28/25 (Anti-Itch (hydrocortisone)) Allergies Allergy/AdvReac Type Severity Reaction Status Date / Time cephalexin Allergy Anaphylaxis Verified 05/28/25 11:42 codeine Allergy Anaphylaxis Verified 05/28/25 11:42 morphine Allergy Anaphylaxis Verified 05/28/25 11:42 Review of Systems Review of Systems: CONST: Negative for fever, body aches and chills. HENT: Negative for neck pain/stiffness, headache, congestion, sore throat, swelling. EYES: Negative for discharge/pain or vision changes. RESP: Negative for cough/hemoptysis and shortness of breath. CV: Negative chest pain, difficulty breathing, palpitations. ABD: Negative pain, nausea, vomiting. : Negative increase frequency, dysuria, blood in urine or stool. MUSC: Negative for muscle aches, edema. SKIN: Negative lesions/sores. POS itchy rash below R eye, between B/L breasts NEURO: Negative headache, dizziness, weakness. Yes all other systems are reviewed and are negative PMFSH Social History Social History Smoked in Last 30 Days: Yes Substance Use Type: Marijuana Advance Directives: No Advance Directives Information Provided: No Physical Exam ED Vital Signs: Vital Signs - 24 hr 05/28/25 11:38 05/28/25 13:29 Temperature 97.5 F 98.1 F Pulse Rate 86 75 Respiratory Rate 16 16 Blood Pressure 120/74 123/44 L Pulse Oximetry 95 96 Oxygen Delivery Method Room Air Room Air BMI result Body Mass Index 21.6 GENERAL APPEARANCE: ?AxOx4, generally well-appearing, no acute distress. HEENT: ?NC, AT. MMM. EOMI, clear conjunctiva, oropharynx clear. NECK: ?Supple without lymphadenopathy.? No stiffness or restricted ROM. HEART:? Normal rate and regular rhythm, normal S1/S2, no m/r/g LUNGS:? CTAB, moving air well. No crackles or wheezes are heard. ABDOMEN: ?Soft, nontender, nondistended with good bowel sounds heard. BACK: No CVAT, no obvious deformity. EXTREMITIES: ?Without cyanosis, clubbing or edema. R leg with healing wound NEUROLOGICAL: ?Grossly nonfocal. Alert and oriented, moving all 4 extremities. Observed to ambulate with normal gait. Skin: ?Warm and dry. intriginous rash between breasts, negative nikolsky sign, no weeping or drainage noted, skin is thickened in this area. Patch of redness below R eye. Course Course Course Narrative: Rapid medical examination performed in triage by Chandni Buck PA-C. Patient is a 64 year old assigned female at presenting to the emergency department with a new rash. Detailed physical exam and review of systems are deferred to the survey worker. Labs ordered. Patient placed back in the waiting room pending room availability and results. Medical Decision Making Medical Decision Making [facility] Narrative: 54-year-old female presents to ED you a rash on the chest and right eye that began 1 day after starting dicloxacillin, doxycycline for a right lower leg wound. Patient woke up yesterday with intense itching between bilateral breasts, itchy red patch below the right eye. Patient was recently seen in the department on 05/24/25 for an injury on her right leg and was prescribed antibiotic therapy. Patient states she was outside in her garden yesterday however was not in the sunlight as I originally thought rash may be photosensitivity reaction from doxycycline. On physical exam patient with an intertriginous rash of bilateral breasts, with thickened skin, mildly thickened skin below the right eye, there is no weeping or drainage. No urticaria present, no oral mucosal involvement or itching. No Nikolsky sign present. VSS, patient is able to tolerate oral secretions, is talking in full sentences, no increased work of breathing, or accessory muscle use noted. Labs without leukocytosis/leukopenia, H&H stable, no electrolyte abnormalities, CRP mildly elevated at 0.97. I reviewed the chart and culture of R leg wound was positive for staph aureus. Patient can discontinue dicloxicillin and remain on doxycycline for treatment. Patient will be discharged with clotrimazole cream for suspected intriginous rash and 1% hydrocortisone cream for the patch under the eye. I counseled patient to follow up with her primary care provider to ensure resolution of symptoms. I counseled patient on strict return precautions. Patient feels well enough to go home for self-care, and is in agreement with the plan Differential Diagnosis Differential Diagnoses: The differential diagnosis associated with the presentation includes Anaphylaxis Urticaria Allergic reaction Allergic dermatitis Intertrigo Admission/Observation Consideration of admission/observation: Escalation of care including admission/observation considered Lab Data [facility] Lab Attestation statement: I reviewed the patient's lab results. 05/28/25 12:12 05/28/25 12:12 Labs: Lab Results 05/28/25 Range/Units 12:12 WBC 6.8 (4.8-10.8) X10*3/uL RBC 4.70 (4.20-5.50) X10*6/uL Hgb 14.3 (12.0-16.0) g/dl Hct 42.0 (37.0-47.0) % MCV 89.4 (80.0-98.0) fL MCH 30.4 (27.0-33.0) pg MCHC 34.0 (31.0-35.0) g/dl RDW 12.5 (11.0-16.0) % Plt Count 289 (160-400) X10*3/uL MPV 10.4 (9.4-12.3) fL Immature Gran % (Auto) 0.1 (0.0-0.4) % Neut % (Auto) 58.0 (45-73) % Lymph % (Auto) 27.9 (20-40) % Elliott % (Auto) 7.3 (2-11) % Eos % (Auto) 6.0 H (0-4) % Baso % (Auto) 0.7 (0-2) % Lymph # (Auto) 1.9 (1.2-4.9) X10*3/uL Elliott # (Auto) 0.5 (0.1-1.2) X10*3/uL Eos # (Auto) 0.4 (0.0-0.4) X10*3/uL Baso # (Auto) 0.1 (0.0-0.2) X10*3/uL Abs Immat Gran (auto) 0.01 (0.00-0.03) X10*3/uL Absolute Neuts (auto) 4.0 (2.0-8.3) x10*3/uL Absolute Nucleated RBC 0.000 (0.0-0.012) X10*3/uL Nucleated RBC % (auto) 0.0 (0.0-0.2) /100WBC ESR 16 (0-20) MM/HR Sodium 139 (135-145) mmol/L Potassium 4.1 (3.3-5.1) mmol/L Chloride 102 (96-108) mmol/L Carbon Dioxide 28 (22-29) mmol/L Anion Gap 13 (12-20) BUN 9 (9-16) mg/dL Creatinine 0.84 (0.5-1.4) mg/dL Estim Creat Clear Calc 60.9 Estimated GFR > 60 Random Glucose 88 (60-115) mg/dL Calcium 9.5 (8.4-10.2) mg/dL Magnesium 2.2 (1.6-2.6) mg/dL Total Bilirubin 0.3 (0.0-1.0) mg/dL AST 23 (5-31) U/L ALT 23 (0-31) U/L Alkaline Phosphatase 62 (39-117) U/L C-Reactive Protein 0.97 H (< or = 0.50) mg/dL Total Protein 7.2 (6.5-8.0) g/dL Albumin 4.5 (3.5-5.0) g/dL External Record Review External record reviewed: Inpatient record, Office record and Outpatient record Discharge Plan Discharge Clinical Impression: Intertrigo Patient Disposition: Home, Self-Care Additional Instructions: You were evaluated in the ED today due to a rash between the breasts, and of the right eye. The rash did not have any concerning findings on physical exam, and looks to be in overgrowth of yeast between the breasts. The patch of the eye looks like possible eczema rash. I discussed the healing wound of your right leg with the doctor who saw you last time, and we agreed with discontinuing the dicloxacillin, as the doxycycline covers the staph aureus that was cultured of the wound. You are being prescribed clotrimazole cream which you apply to the affected areas between the breast twice a day for a week, and 1% hydrocortisone cream that you will place onto the red rash only (do not place onto the upper eyelids or onto the thin skin directly under the eye) once a day for 1 week. Please discontinue the dicloxacillin antibiotic and continue takine the doxycycline until completion. This medication has risk of rash that develops if exposed to sunlight. Please do not go into sunlight while you are on this medication. Please follow up with your primary care doctor to ensure resolution of your symptoms. Additionally, you should take a daily Claritin or Zyrtec to help with itching. You can also place a cold compress onto the skin between the breasts to help with itching. Please return to the emergency department if you experience itching, tingling of the mouth, lips, tongue, throat, difficulty breathing, nausea, vomiting, abdominal pain, worsening rash, oozing from the rash or any new/worsening/concerning symptoms. Prescriptions: New clotrimazole 1 % cream 1 appl topical BID Qty: 30 0RF hydrocortisone [Anti-Itch (HC)] 1 % cream 1 appl topical ONCE Qty: 28.35 0RF No Action albuterol sulfate 90 mcg/actuation aerosol powdr breath activated 2 inh inhalation Q4-6H PRN (Reason: shortness of breath or wheezing) Qty: 1 0RF doxycycline hyclate 100 mg capsule 100 mg PO BID 10 Days Qty: 20 0RF prednisone 20 mg tablet 40 mg PO DAILY 5 Days Qty: 10 0RF doxycycline monohydrate 100 mg capsule 100 mg PO BID 7 Days Qty: 14 0RF dicloxacillin 500 mg capsule 500 mg PO QID 7 Days Qty: 28 0RF Print Language: Spanish
[2025-05-28 12:17] LABS: Hematocrit 42.0 % (37.0-47.0); Hemoglobin 14.3 g/dl (12.0-16.0); Imm Gran Abs Auto 0.01 X10*3/uL (0.00-0.03); Imm Gran Pct Auto 0.1 % (0.0-0.4); Lymphocytes Absolute Auto 1.9 X10*3/uL (1.2-4.9); MANUAL DIFF FLAG NO; Mean Corpuscular HGB Conc 34.0 g/dl (31.0-35.0); Mean Corpuscular Hemoglobin 30.4 pg (27.0-33.0); Mean Corpuscular Volume 89.4 fL (80.0-98.0); NRBC Abs Auto 0.000 X10*3/uL (0.0-0.012); NRBC Pct Auto 0.0 /100WBC (0.0-0.2); Platelet Count 289 X10*3/uL (160-400); Red Blood Count 4.70 X10*6/uL (4.20-5.50); White Blood Count 6.8 X10*3/uL (4.8-10.8)
--- OUTSIDE RECORDS SUMMARY | 2025-05-28 12:19 | XMS_ITS | Encounter Summary ---
Author Organization [facility] Address [address] [place] [address] Care Team Providers Care Credit Relationship Manager Name Role Phone Naty Goldstein NP Primary Care Provider [phone] Encounter Details Date Type Department Care Team (Late st Contact Info) Description 11/08/2019 Ophthalmology Data Conversion [facility] Ophthalmology [address] [place] [address] Suzie Elise MD [address] [place] [address] Social History Tobacco Use Types Packs/Day Years [...] documented as of this encounter Care Teams Credit Relationship Manager Relationship Specialty Start Date End Date Naty Goldstein NP [address] [place] [address] PCP - General Nurse Practitioner 07/03/23 12/28/24 documented as of this encounter
--- OUTSIDE RECORDS SUMMARY | 2025-05-28 12:19 | XMS_ITS | Encounter Summary ---
Author Organization [facility] Address [address] [place] [address] Care Team Providers Care Best Second Jobs Name Role Phone Naty Goldstein NP Primary Care Provider [phone] Encounter Details Date Type Department Care Team (Late st Contact Info) Description 11/08/2019 Ophthalmology Data Conversion [facility] Ophthalmology [address] [place] [phone] Suzie Elise MD [address] [place] [address] Social History Tobacco Use Types Packs/Day Years [...] documented as of this encounter Care Teams Best Second Jobs Relationship Specialty Start Date End Date Naty Goldstein NP [address] [place] [phone] PCP - General Nurse Practitioner 07/03/23 12/28/24 documented as of this encounter
--- OUTSIDE RECORDS SUMMARY | 2025-05-28 12:19 | XMS_ITS | Encounter Summary ---
Author Organization [facility] Address [address] [place] [address] Care Team Providers Care Human Resource Assistant Name Role Phone Naty Goldstein NP Primary Care Provider [phone] Encounter Details Date Type Department Care Team (Late st Contact Info) Description 03/12/2020 Ophthalmology Data Conversion [facility] Historical Conversion Department [address] [place] [address] [address] [address] Social History Tobacco Use Types Packs/Day Years [...] documented as of this encounter Care Teams Human Resource Assistant Relationship Specialty Start Date End Date Naty Goldstein NP [address] [place] [address] PCP - General Nurse Practitioner 07/03/23 12/28/24 documented as of this encounter
--- OUTSIDE RECORDS SUMMARY | 2025-05-28 12:19 | XMS_ITS | Encounter Summary ---
Author Organization [facility] Address [address] [place] [address] Care Team Providers Care Field Recruiter Name Role Phone Naty Goldstein NP Primary Care Provider [phone] Encounter Details Date Type Department Care Team (Late st Contact Info) Description 09/27/2019 Ophthalmology Data Conversion [facility] Ophthalmology [address] [place] [phone] Suzie Elise MD [address] [place] [phone] Social History Tobacco Use Types Packs/Day Years [...] documented as of this encounter Care Teams Field Recruiter Relationship Specialty Start Date End Date Naty Goldstein NP [address] [place] [address] PCP - General Nurse Practitioner 07/03/23 12/28/24 documented as of this encounter
--- OUTSIDE RECORDS SUMMARY | 2025-05-28 12:19 | XMS_ITS | Encounter Summary ---
Author Organization [facility] Address [address] [place] [address] Care Team Providers Care Load Checker Name Role Phone Naty Goldstein NP Primary Care Provider [phone] Encounter Details Date Type Department Care Team (Late st Contact Info) Description 10/06/2019 Ophthalmology Data Conversion [facility] Ophthalmology [address] [place] [phone] Suzie Elise MD [address] [place] [phone] Social History Tobacco Use Types Packs/Day Years [...] documented as of this encounter Care Teams Load Checker Relationship Specialty Start Date End Date Naty Goldstein NP [address] [place] [phone] PCP - General Nurse Practitioner 07/03/23 12/28/24 documented as of this encounter
--- OUTSIDE RECORDS SUMMARY | 2025-05-28 12:19 | XMS_ITS | Encounter Summary ---
Author Organization [facility] Address [address] [place] [address] Care Team Providers Care Media Law Faculty Member Name Role Phone Naty Goldstein NP Primary Care Provider [phone] Encounter Details Date Type Department Care Team (Late st Contact Info) Description 10/06/2019 Ophthalmology Data Conversion [facility] Ophthalmology [address] [place] [phone] Suzie Elise MD [address] [place] [address] Social History Tobacco Use Types Packs/Day Years [...] documented as of this encounter Care Teams Media Law Faculty Member Relationship Specialty Start Date End Date Naty Goldstein NP [address] [place] [phone] PCP - General Nurse Practitioner 07/03/23 12/28/24 documented as of this encounter
--- OUTSIDE RECORDS SUMMARY | 2025-05-28 12:20 | XMS_ITS | Clinical Summary ---
Author Organization [facility] Address [address] [place] [address] Care Team Providers Care Chef Head Name Role Phone Unavailable Primary Care Provider [...] She is unsure of the dose. Active clonazePAM (KlonoPIN) 1 mg tabletIndicati ons:panic disorder Take 1 tablet (1 mg total) by mouth 2 times a day Indications: panic disorder. for anxiety 60 tablet 2 03/03/20 25 Active venlafaxine XR (EFFEXOR XR) 75 mg capsule Take 1 capsule (75 mg total) by mouth once a day. Take with a 150mg capsule for 225mg total. 90 capsule 03/03/20 25 Active nicotine (NICOTROL NS) 10 mg/mL spray,non-aero mariana nasal spray Administer 1 spray into each nostril every hour as needed (nicotine craving). No more than 10 sprays per hour or 80 sprays per day. 10 mL 03/03/20 25 Active venlafaxine XR (EFFEXOR XR) 150 mg capsule TAKE 1 CAPSULE (150 MG TOTAL) BY MOUTH IN THE MORNING 90 capsule 05/26/20 25 Active venlafaxine XR (EFFEXOR XR) 150 mg capsule TAKE 1 CAPSULE (150 MG TOTAL) BY MOUTH IN THE MORNING 90 capsule 03/03/20 25 025 Discontinued Active Problems Problem Noted Date Diagnosed Date [...] to transverse cystectomy and fusion surgery at [facility], by Dr. Nelson Newby on 08/23/2014. Minimal improvement of back pain since that surgery. Subsequently she received spinal steroid injection at [place] [facility] without any significant improvement. Not taking any medication.Reviewed use and effect of tramadol in detail,. Depression 08/06/2016 Overview (08/24/2023): Doing well now. Taking Effexor. tolerating well. Follow-up with therapist/counselor at regular interval at [facility].Denied any suicidal or homicidal plan, thought or [...] Health Annual Screening 09/14/2024 Mammogram 05/04/2025 05/04/2023, 0609/2019, 01/12/2018, Additional history exists COVID-19 Vaccine ( - season) 2025 Influenza Vaccine (#1) 2025 , 06/21/2018, 08/06/2016, Additional history exists Depression Screening and Follow-Up 03/03/2026 03/03/2025 DTaP,Tdap,and Td Vaccines (2 - Td or Tdap) 06/09/2027 06/09/2017 RSV Vaccine (60+ years old and patients) (1 - 1-dose 75+ series) 2035 Hepatitis B Vaccines Aged Out No long er eligible based on patient's age to complete this topic Procedures * Due to [place] [employer] law, this organization might not be sharing negative HIV tests. Procedure Name Priority Date/Time Associated Diagnosis Comments [facility] SCREENING DIGITAL MAMMO Routine 05/04/2023 11:37 AM EDT from Last 3 Months or Most Recently Relevant to Health Maintenance Results * Due to [place] [employer] law, this organization might not be sharing negative HIV tests. * [facility] Screening Digital Mammogram (05/04/2023 11:37 AM EDT) Anatomical Region Laterality Modality Breast Mammography 05/04/2023 11:3 7 AM EDT Narrative 05/14/2023 6:48 AM EDT DEPARTMENT OF RADIOLOGY Patient: BRENDA BRITT Unit #: [id number] Ordering MD: NOHEMY THORNTON MD : 1960 Procedure: Digital Mammo Screen Age: 62 Location: XRAY Exam Date: 05/04/23 Status: [facility] Room/Bed: Primary MD: NOHEMY THORNTON MD Patient Order: [id number] Additional Copy: NOHEMY THORNTON MD - #[id number] - DIGSCRMAM BILATERAL DIGITAL TOMOSYNTHESIS SCREENING MAMMOGRAM [...] is recommended. This exam was interpreted at [place], [place]. POI: [place]. Electronically signed by: Lynette Sanchez M.D., cp/thien:05/13/2023 13:57:13 letter sent: A-2 Normal Benign Mammogram BI-RADS: 1 Negative [facility] Procedure Note Lynette Sanchez MD - 06/09/2023 DEPARTMENTOF RADIOLOGY Theresaen t: BRENDA BRITT Unit #:[id number] Ordering MD: NOHEMY THORNTON MD :1960 Procedure: Digital Mammo Screen Age:62 Location: XRAY ExamDate: 05/04/23 Status: REG CLIRoom/Bed: Primary MD: NOHEMY THORNTON MD PatientAcct #: [id number] Order:[id number] Additional Copy: NOHEMY THORNTON MD - #[id number] - DIGSCRMAM BILATERAL DIGITAL TOMOSYNTHESIS SCREENING MAMMOGRAM [...] is recommended. This exam was interpreted at [place], [place]. POI: [place]. Electronically signed by: Lynette Sanchez M.D., cp/thien:05/13/2023 13:57:13 letter sent: A-2 Normal Benign Mammogram BI-RADS: 1 Negative [facility] us Nohemy Thornton MD IMG BI PROCEDURES Final Resul t from Last 3 Months or Most Recently Relevant to Health Maintenance Insurance [place] [employer]
--- OUTSIDE RECORDS SUMMARY | 2025-05-28 12:20 | XMS_ITS | Encounter Summary ---
Author Organization [facility] Address [address] [place] [address] Care Team Providers Care Operations And Maintenance Manager Name Role Phone Naty Goldstein CARTON PACKAGING MACHINE OPERATOR Primary Care Provider [phone] Encounter Details Date Type Department Care Team (Late st Contact Info) Description 03/14/2014 Ophthalmology Data Conversion [facility] Historical Conversion Department [address] [place] [address] Stephanie Santiago MD [address] [place] [address] Social History Tobacco Use Types Packs/Day Years [...] documented as of this encounter Care Teams Operations And Maintenance Manager Relationship Specialty Start Date End Date Naty Goldstein NP [address] [place] [address] PCP - General Nurse Practitioner 07/03/23 12/28/24 documented as of this encounter
--- OUTSIDE RECORDS SUMMARY | 2025-05-28 12:20 | XMS_ITS | Encounter Summary ---
Author Organization [facility] Address [address] [place] [address] Care Team Providers Care Body Wirer Name Role Phone Naty Goldstein ONSHORE DIVER Primary Care Provider [phone] Encounter Details Date Type Department Care Team (Late st Contact Info) Description 07/05/2015 Ophthalmology Data Conversion [facility] Historical Conversion Department [address] [place] [address] Stephanie Santiago MD [address] [place] [address] Social History Tobacco Use Types Packs/Day Years [...] documented as of this encounter Care Teams Body Wirer Relationship Specialty Start Date End Date Naty Goldstein NP [address] [place] [address] PCP - General Nurse Practitioner 07/03/23 12/28/24 documented as of this encounter
--- OUTSIDE RECORDS SUMMARY | 2025-05-28 12:20 | XMS_ITS | Encounter Summary ---
Author Organization [facility] Address [address] [place] [address] Care Team Providers Care Senior Market Intelligence Consultant Name Role Phone Naty Goldstein NP Primary Care Provider [phone] Encounter Details Date Type Department Care Team (Late st Contact Info) Description 03/12/2020 Ophthalmology Data Conversion [facility] Historical Conversion Department [address] [place] [address] [address] Social History Tobacco Use Types Packs/Day Years [...] documented as of this encounter Care Teams Senior Market Intelligence Consultant Relationship Specialty Start Date End Date Naty Goldstein NP [address] [place] [address] PCP - General Nurse Practitioner 07/03/23 12/28/24 documented as of this encounter
--- OUTSIDE RECORDS SUMMARY | 2025-05-28 12:20 | XMS_ITS | Encounter Summary ---
Author Organization [facility] Address [address] [place] [address] Care Team Providers Care Lard Maker Name Role Phone Naty Goldstein NP Primary Care Provider [phone] Encounter Details Date Type Department Care Team (Late st Contact Info) Description 09/15/2019 Ophthalmology Data Conversion [facility] Ophthalmology [address] [place] [address] Suzie Elise MD [address] [place] [address] Social History Tobacco Use Types Packs/Day Years [...] documented as of this encounter Care Teams Lard Maker Relationship Specialty Start Date End Date Naty Goldstein NP [address] [place] [address] PCP - General Nurse Practitioner 07/03/23 12/28/24 documented as of this encounter
--- OUTSIDE RECORDS SUMMARY | 2025-05-28 12:20 | XMS_ITS | Encounter Summary ---
Author Organization [facility] Address [address] [place] [address] Care Team Providers Care Clinical Specialist Medical Device Name Role Phone Naty Goldstein NP Primary Care Provider [phone] Encounter Details Date Type Department Care Team (Late st Contact Info) Description 09/01/2019 Ophthalmology Data Conversion [facility] Ophthalmology [address] [place] [address] Suzie Elise MD [address] [place] [address] Social History Tobacco Use Types Packs/Day Years [...] documented as of this encounter Care Teams Clinical Specialist Medical Device Relationship Specialty Start Date End Date Naty Goldstein NP [address] [place] [address] PCP - General Nurse Practitioner 07/03/23 12/28/24 documented as of this encounter
--- OUTSIDE RECORDS SUMMARY | 2025-05-28 12:20 | XMS_ITS | Encounter Summary ---
Author Organization [facility] Address [address] [place] [address] Care Team Providers Care Cotton Dispatcher Name Role Phone Naty Goldstein GYM SUPERVISOR Primary Care Provider [phone] Encounter Details Date Type Department Care Team (Late st Contact Info) Description 06/21/2015 Ophthalmology Data Conversion [facility] Historical Conversion Department [address] [place] [address] Stephanie Santiago MD [address] [place] [address] Social History Tobacco Use Types Packs/Day Years [...] documented as of this encounter Care Teams Cotton Dispatcher Relationship Specialty Start Date End Date Naty Goldstein NP [address] [place] [address] PCP - General Nurse Practitioner 07/03/23 12/28/24 documented as of this encounter
--- OUTSIDE RECORDS SUMMARY | 2025-05-28 12:20 | XMS_ITS | Encounter Summary ---
Author Organization [facility] Address [address] [place] [address] Care Team Providers Care Script Artist Name Role Phone Naty Goldstein NP Primary Care Provider [phone] Encounter Details Date Type Department Care Team (Late st Contact Info) Description 08/18/2019 Ophthalmology Data Conversion [facility] Ophthalmology [address] [place] [address] Suzie Elise MD [address] [place] [address] Social History Tobacco Use Types Packs/Day Years [...] documented as of this encounter Care Teams Script Artist Relationship Specialty Start Date End Date Naty Goldstein NP [address] [place] [address] PCP - General Nurse Practitioner 07/03/23 12/28/24 documented as of this encounter
--- OUTSIDE RECORDS SUMMARY | 2025-05-28 12:20 | XMS_ITS | Encounter Summary ---
Author Organization [facility] Address [address] [place] [address] Care Team Providers Care Hand Box Coverer Name Role Phone Naty Goldstein PROPELLER MECHANIC Primary Care Provider [phone] Encounter Details Date Type Department Care Team (Late st Contact Info) Description 06/14/2015 Ophthalmology Data Conversion [facility] Historical Conversion Department [address] [place] [address] Stephanie Santiago MD [address] [place] [address] Social History Tobacco Use Types Packs/Day Years [...] documented as of this encounter Care Teams Hand Box Coverer Relationship Specialty Start Date End Date Naty Goldstein NP [address] [place] [address] PCP - General Nurse Practitioner 07/03/23 12/28/24 documented as of this encounter
--- OUTSIDE RECORDS SUMMARY | 2025-05-28 12:20 | XMS_ITS | Encounter Summary ---
Author Organization [facility] Address [address] [place] [address] Care Team Providers Care Spanish Medical Interpreter Name Role Phone Naty Goldstein NP Primary Care Provider [phone] Encounter Details Date Type Department Care Team (Late st Contact Info) Description 08/18/2019 Ophthalmology Data Conversion [facility] Ophthalmology [address] [place] [address] Suzie Elise MD [address] [place] [address] Social History Tobacco Use Types Packs/Day Years [...] documented as of this encounter Care Teams Spanish Medical Interpreter Relationship Specialty Start Date End Date Naty Goldstein NP [address] [place] [address] PCP - General Nurse Practitioner 07/03/23 12/28/24 documented as of this encounter
--- OUTSIDE RECORDS SUMMARY | 2025-05-28 12:20 | XMS_ITS | Encounter Summary ---
Author Organization [facility] Address [address] [place] [address] Care Team Providers Care Commutator Tester Name Role Phone Naty Goldstein RN INTERNSHIP Primary Care Provider [phone] Encounter Details Date Type Department Care Team (Late st Contact Info) Description 07/05/2015 Ophthalmology Data Conversion [facility] Historical Conversion Department [address] [place] [address] Stephanie Santiago MD [address] [place] [address] Social History Tobacco Use Types Packs/Day Years [...] documented as of this encounter Care Teams Commutator Tester Relationship Specialty Start Date End Date Naty Goldstein NP [address] [place] [address] PCP - General Nurse Practitioner 07/03/23 12/28/24 documented as of this encounter
--- OUTSIDE RECORDS SUMMARY | 2025-05-28 12:20 | XMS_ITS | Encounter Summary ---
Author Organization [facility] Address [address] [place] [address] Care Team Providers Care Check Scaler Name Role Phone Naty Goldstein CYBER OPS PLANNER Primary Care Provider [phone] Encounter Details Date Type Department Care Team (Late st Contact Info) Description 03/10/2014 Ophthalmology Data Conversion [facility] Historical Conversion Department [address] [place] [address] Stephanie Santiago MD [address] [place] [address] Social History Tobacco Use Types Packs/Day Years [...] documented as of this encounter Care Teams Check Scaler Relationship Specialty Start Date End Date Naty Goldstein NP [address] [place] [address] PCP - General Nurse Practitioner 07/03/23 12/28/24 documented as of this encounter
--- OUTSIDE RECORDS SUMMARY | 2025-05-28 12:20 | XMS_ITS | Encounter Summary ---
Author Organization [facility] Address [address] [place] [address] Care Team Providers Care Valuation Manager Name Role Phone Naty Goldstein INDUSTRIAL RELATIONS ANALYST Primary Care Provider [phone] Encounter Details Date Type Department Care Team (Late st Contact Info) Description 03/14/2014 Ophthalmology Data Conversion [facility] Historical Conversion Department [address] [place] [address] Stephanie Santiago MD [address] [place] [address] Social History Tobacco Use Types Packs/Day Years [...] documented as of this encounter Care Teams Valuation Manager Relationship Specialty Start Date End Date Naty Goldstein NP [address] [place] [address] PCP - General Nurse Practitioner 07/03/23 12/28/24 documented as of this encounter
--- OUTSIDE RECORDS SUMMARY | 2025-05-28 12:20 | XMS_ITS | Encounter Summary ---
Author Organization [facility] Address [address] [place] [address] Care Team Providers Care Enterprise Application Architect Name Role Phone Naty Goldstein NP Primary Care Provider [phone] Encounter Details Date Type Department Care Team (Late st Contact Info) Description 09/20/2019 Ophthalmology Data Conversion [facility] Ophthalmology [address] [place] [address] Suzie Elise MD [address] [place] [address] Social History Tobacco Use Types Packs/Day Years [...] documented as of this encounter Care Teams Enterprise Application Architect Relationship Specialty Start Date End Date Naty Goldstein NP [address] [place] [address] PCP - General Nurse Practitioner 07/03/23 12/28/24 documented as of this encounter
--- OUTSIDE RECORDS SUMMARY | 2025-05-28 12:20 | XMS_ITS | Encounter Summary ---
Author Organization [facility] Address [address] [place] [address] Care Team Providers Care Shoulder Joiner Name Role Phone Naty Goldstein MARKETING TECHNOLOGY SPECIALIST Primary Care Provider [phone] Encounter Details Date Type Department Care Team (Late st Contact Info) Description 11/17/2013 Ophthalmology Data Conversion [facility] Historical Conversion Department [address] [place] [address] Stephanie Santiago MD [address] [place] [address] Social History Tobacco Use Types Packs/Day Years [...] documented as of this encounter Care Teams Shoulder Joiner Relationship Specialty Start Date End Date Naty Goldstein NP [address] [place] [address] PCP - General Nurse Practitioner 07/03/23 12/28/24 documented as of this encounter
--- OUTSIDE RECORDS SUMMARY | 2025-05-28 12:20 | XMS_ITS | Encounter Summary ---
Author Organization [facility] Address [address] [place] [address] Care Team Providers Care Airframe Technician Name Role Phone Naty Goldstein PATIENT FINANCIAL SERVICES COORDINATOR Primary Care Provider Encounter Details Date Type Department Care Team (Late st Contact Info) Description 08/14/2015 Ophthalmology Data Conversion [facility] Historical Conversion Department [address] [place] [address] Stephanie Santiago MD [address] [place] [address] Social History Tobacco Use Types Packs/Day Years [...] documented as of this encounter Care Teams Airframe Technician Relationship Specialty Start Date End Date Naty Goldstein NP [address] [place] [address] PCP - General Nurse Practitioner 07/03/23 12/28/24 documented as of this encounter
--- OUTSIDE RECORDS SUMMARY | 2025-05-28 12:20 | XMS_ITS | Encounter Summary ---
Author Organization [facility] Address [address] [place] [address] Care Team Providers Care Finance Director Name Role Phone Naty Goldstein WAITER/WAITRESS CAPTAIN Primary Care Provider [phone] Encounter Details Date Type Department Care Team (Late st Contact Info) Description 03/08/2015 Ophthalmology Data Conversion [facility] Historical Conversion Department [address] [place] [address] Stephanie Santiago MD [address] [place] [address] Social History Tobacco Use Types Packs/Day Years [...] documented as of this encounter Care Teams Finance Director Relationship Specialty Start Date End Date Naty Goldstein NP [address] [place] [address] PCP - General Nurse Practitioner 07/03/23 12/28/24 documented as of this encounter
--- OUTSIDE RECORDS SUMMARY | 2025-05-28 12:20 | XMS_ITS | Encounter Summary ---
Author Organization [facility] Address [address] [place] [address] Care Team Providers Care Silk Screen Printer Name Role Phone Naty Goldstein COLLECTION ANALYST Primary Care Provider [phone] Encounter Details Date Type Department Care Team (Late st Contact Info) Description 03/10/2014 Ophthalmology Data Conversion [facility] Historical Conversion Department [address] [place] [address] Stephanie Santiago MD [address] [place] [address] Social History Tobacco Use Types Packs/Day Years [...] documented as of this encounter Care Teams Silk Screen Printer Relationship Specialty Start Date End Date Naty Goldstein NP [address] [place] [address] PCP - General Nurse Practitioner 07/03/23 12/28/24 documented as of this encounter
--- OUTSIDE RECORDS SUMMARY | 2025-05-28 12:20 | XMS_ITS | Encounter Summary ---
Author Organization [facility] Address [address] [place] [address] Care Team Providers Care Director Equipment Name Role Phone Naty Goldstein INSURANCE RISK MANAGER Primary Care Provider [phone] Encounter Details Date Type Department Care Team (Late st Contact Info) Description 11/17/2013 Ophthalmology Data Conversion [facility] Historical Conversion Department [address] [place] [address] Stephanie Santiago MD [address] [place] [address] Social History Tobacco Use Types Packs/Day Years [...] documented as of this encounter Care Teams Director Equipment Relationship Specialty Start Date End Date Naty Goldstein NP [address] [place] [address] PCP - General Nurse Practitioner 07/03/23 12/28/24 documented as of this encounter
--- OUTSIDE RECORDS SUMMARY | 2025-05-28 12:20 | XMS_ITS | Encounter Summary ---
Author Organization [facility] Address [address] [place] [address] Care Team Providers Care Core Winding Operator Name Role Phone Naty Goldstein FAMILY MEMBER CARETAKER Primary Care Provider [phone] Encounter Details Date Type Department Care Team (Late st Contact Info) Description 03/08/2015 Ophthalmology Data Conversion [facility] Historical Conversion Department [address] [place] [address] Stephanie Santiago MD [address] [place] [address] Social History Tobacco Use Types Packs/Day Years [...] documented as of this encounter Care Teams Core Winding Operator Relationship Specialty Start Date End Date Naty Goldstein NP [address] [place] [address] PCP - General Nurse Practitioner 07/03/23 12/28/24 documented as of this encounter
--- OUTSIDE RECORDS SUMMARY | 2025-05-28 12:20 | XMS_ITS | Encounter Summary ---
Author Organization [facility] Address [address] [place] [address] Care Team Providers Care Laborer Dairy Farm Name Role Phone Naty Goldstein INTELLIGENCE CHIEF Primary Care Provider [phone] Encounter Details Date Type Department Care Team (Late st Contact Info) Description 05/08/2015 Ophthalmology Data Conversion [facility] Historical Conversion Department [address] [place] [address] Stephanie Santiago MD [address] [place] [address] Social History Tobacco Use Types Packs/Day Years [...] documented as of this encounter Care Teams Laborer Dairy Farm Relationship Specialty Start Date End Date Naty Goldstein NP [address] [place] [address] PCP - General Nurse Practitioner 07/03/23 12/28/24 documented as of this encounter
--- OUTSIDE RECORDS SUMMARY | 2025-05-28 12:20 | XMS_ITS | Encounter Summary ---
Author Organization [facility] Address [address] [place] [address] Care Team Providers Care Seal Delivery Vehicle Officer Name Role Phone Naty Goldstein DIRECTOR ELECTRONICS Primary Care Provider [phone] Encounter Details Date Type Department Care Team (Late st Contact Info) Description 06/07/2015 Ophthalmology Data Conversion [facility] Historical Conversion Department [address] [place] [address] Stephanie Santiago MD [address] [place] [address] Social History Tobacco Use Types Packs/Day Years [...] documented as of this encounter Care Teams Seal Delivery Vehicle Officer Relationship Specialty Start Date End Date Naty Goldstein NP [address] [place] [address] PCP - General Nurse Practitioner 07/03/23 12/28/24 documented as of this encounter
--- OUTSIDE RECORDS SUMMARY | 2025-05-28 12:20 | XMS_ITS | Encounter Summary ---
Author Organization [facility] Address [address] [place] [address] Care Team Providers Care Biometric Screener Name Role Phone Naty Goldstein CHAR CONVEYOR TENDER CELLAR Primary Care Provider [phone] Encounter Details Date Type Department Care Team (Late st Contact Info) Description 06/21/2015 Ophthalmology Data Conversion [facility] Historical Conversion Department [address] [place] [address] Stephanie Santiago MD [address] [place] [address] Social History Tobacco Use Types Packs/Day Years [...] documented as of this encounter Care Teams Biometric Screener Relationship Specialty Start Date End Date Naty Goldstein NP [address] [place] [address] PCP - General Nurse Practitioner 07/03/23 12/28/24 documented as of this encounter
[2025-05-28 12:34] LABS: Alanine Aminotransferase 23 U/L (0-31); Albumin Level 4.5 g/dL (3.5-5.0); Alkaline Phosphatase 62 U/L (39-117); Anion Gap 13 (12-20); Aspartate Amino Transferase 23 U/L (5-31); Blood Urea Nitrogen 9 mg/dL (9-16); Calcium 9.5 mg/dL (8.4-10.2); Carbon Dioxide 28 mmol/L (22-29); Chloride 102 mmol/L (96-108); Creatinine Clr Calc Pharmacy 60.9; Estimated Glomerular Filt Rate > 60; Magnesium 2.2 mg/dL (1.6-2.6); Potassium 4.1 mmol/L (3.3-5.1); Sodium 139 mmol/L (135-145); Total Protein 7.2 g/dL (6.5-8.0)
--- NOTE | 2025-05-28 12:58 | PC.NURSE ---
Patient a 64 yo female who presents from home with an allergic reaction. Was recently seen in this facility for a wound infection and placed on 2 different abx. Started with eye swelling and rash on chinand trunk with pruritus. Denies any throat swelling or sob. Lungs clear bilat. Respirations even and non-labored. No wheezing noted. Abdomen soft, non-tender with positive bowel sounds. Positive pedal pulses with no edema.
[2025-05-28 13:29] VITALS: BP 123/44; PULSE 75; RESP 16; TEMP 36.7; O2SAT 96
--- NOTE | 2025-05-28 15:13 | PC.NURSE ---
Wound to right lower extremity with splotchy red wound with some open blisters. Bacitracin and dressing applied.
[2025-05-28 15:15] VITALS: BP 123/44; PULSE 75; RESP 16; TEMP 36.7; O2SAT 96
== END 2025-05-28 15:16 | disposition home or self-care (01) ==
PROVIDERS: Physician Assistant Medical; Emergency Provider Emergency Medicine
DX: L30.4 Erythema intertrigo (principal); L29.9 Pruritus, unspecified; Z79.899 Other long term (current) drug therapy
CPT/HCPCS: 36415; 80053; 83735; 85025; 85652; 86140; 99283; 99284

== ENCOUNTER 2025-06-01 07:52 | Emergency (ER) | payer OTHER, SELFPAY ==
[2025-06-01 07:56] VITALS: BP 125/66; PULSE 90; RESP 16; TEMP 36.1; O2SAT 97; BMI 26.6
--- NOTE | 2025-06-01 08:03 | ED_ITS ---
HPI - General Adult General Chief complaint: Skin/Abscess/Foreign Body Stated complaint: allergies Time Seen by Provider: 06/01/25 08:03 Source: patient Mode of arrival: ambulatory Limitations: no limitations History of Present Illness ED Provider: Chandni Buck PA-C HPI narrative: Patient is a 64 year old assigned female at with a history of recent rash presenting to the emergency department today with continued rash. Patient states that over the last week she has had a rash, was placed on 2 different antibiotics, stopped both and the rash persists on the chest and under her eyes. Patient denies any other complaints at this time. Related Data Previous Rx's ?Medication ?Instructions ?Recorded albuterol sulfate 90 mcg/actuation 2 inh inhalation Q4 -6H PRN 01/12/24 breath activated powder inhaler shortness of breath or wheezing #1 ea doxycycline hyclate 100 mg capsule 100 mg PO BID 10 da ys #20 caps 01/12/24 prednisone 20 mg tablet 40 mg (2 x 20 mg) PO DAILY 5 days 01/12/24 #10 tabs dicloxacillin 500 mg capsule 500 mg PO QID 7 days #28 caps 05/24/25 doxycycline monohydrate 100 mg 100 mg PO BID 7 days #1 4 caps 05/24/25 capsule clotrimazole 1 % topical cream 1 appl topical BID #30 grams 05/28/25 hydrocortisone 1 % topical cream 1 appl topical ONCE # 28.35 grams 05/28/25 (Anti-Itch (hydrocortisone)) prednisone 10 mg tablet See Taper PO DAILY #24 tabs 06/01/25 Allergies Allergy/AdvReac Type Severity Reaction Status Date / Time cephalexin Allergy Anaphylaxis Verified 06/01/25 07:59 codeine Allergy Anaphylaxis Verified 06/01/25 07:59 morphine Allergy Anaphylaxis Verified 06/01/25 07:59 Review of Systems Constitutional: Constitutional: Reports as per HPI Eyes: Eyes: Reports as per HPI ENT: Reports as per HPI Cardiovascular: Cardiovascular: Reports as per HPI Respiratory: Respiratory: Reports as per HPI Gastrointestinal: Gastrointestinal: Reports as per HPI Genitourinary: Genitourinary: Reports as per HPI Musculoskeletal: Musculoskeletal: Reports as per HPI Integumentary/Breasts: Skin/Breast: Reports as per HPI Neurologic: Reports as per HPI Psychiatric: Psychiatric: Reports as per HPI Endocrine: Endocrine: Reports as per HPI Hematologic/Lymphatic: Hematologic/Lymphatic: Reports as per HPI Allergic/Immunologic: Allergic/Immunologic: Reports as per HPI [facility] Past Medical History Attestation statement: The following information was validated with the patient. Source: old records reviewed and nursing notes reviewed Social History Social History Smoked in Last 30 Days: Yes Use of substances other than those prescribed or required for medical reasons: Yes Substance Use Type: Marijuana Advance Directives: No Advance Directives Information Provided: Yes Patient : No Physical Exam ED Vital Signs: Vital Signs - 24 hr 06/01/25 07:56 06/01/25 09:05 Temperature 97 F 97.2 F Pulse Rate 90 88 Respiratory Rate 16 16 Blood Pressure 125/66 128/66 Pulse Oximetry 97 97 Oxygen Delivery Method Room Air Room Air BMI result Body Mass Index 26.6 Const General: cooperative, no acute distress, alert and awake Nutritional Appearance: well nourished Orientation/consciousness: patient oriented x3 HENMT Head: Yes normal to inspection and Yes atraumatic Ears: hearing grossly normal bilaterally and external ears normal General nose exam: Normal external nose present, no nasal discharge noted and no epistaxis Face and sinus: Yes normal facial exam, No abrasion and No laceration Mouth: Normal oral and palatal mucosa present, no drooling and no muffled voice Eyes Eyelids: Yes eyelids normal Conjunctivae: conjunctivae normal Pupils: Equal, round and reactive pupils present EOM: EOMs intact bilaterally Neck Neck: Yes normal visual inspection and Yes full ROM Resp Effort & Inspection: normal respiratory effort and able to speak in complete sentences Skin Other: rash present to the chest and under the bilateral eyes - erythema, no open areas, no vesicles Neuro General: patient oriented x3, moves all extremities and CN's II-XI intact bilaterally Cranial nerves: Yes Equal, round and reactive pupils present Cognition (Neuro): normal cognition Extrem General: Yes normal to inspection, Yes full ROM and Yes capillary refill normal Psych Appearance: grossly normal Mental Status: mental status grossly normal Affect: normal affect Attitude: cooperative Thought process: Normal thought process present Thought content: Normal thought content present Insight: Good insight present (Psych) Medications Administered Discontinued Medications Generic Name Dose Route Start Last Admin Trade Name Freq PRN Reason Stop Dose Admin Methylprednisolone Sodium Succinate 60 mg 06/01/25 08:25 06/01/25 08:29 Methylprednisolone Sod Succ 125 Mg/2 Ml Vial IM 06/01/25 08:26 60 mg ONCE ONE Administration Medical Decision Making Medical Decision Making MDM Narrative: Patient is a 64 year old assigned female at with a history of recent rash presenting to the emergency department today with continued rash. Patient's physical exam was as noted in the physical exam portion of this note. I explained my physical exam findings to the patient. I answered all questions asked by the patient. Patient's clinical presentation is most consistent with a dermatitis. I consulted with my attending physician, Dr. Pedraza, who recommended a burst and taper of prednisone. I stressed the importance of the patient taking her medication as directed (either prescribed or as the over the counter packaging recommends). I stressed the importance of the patient following up with her primary care provider and a emergency vehicle operations instructor. I stressed the importance of the patient returning to the emergency department immediately if her symptoms were to worsen or if she were to develop any dizziness, shortness of breath, difficulty breathing, chest pain, blurry vision, loss of vision, nausea, vomiting, abdominal pain, fever, chills, back pain, or any other complaints. Patient verbalized agreement and understanding with this treatment plan and discharge. Differential Diagnosis Differential Diagnoses: The differential diagnosis associated with the presentation includes Dermatitis Rash Admission/Observation Consideration of admission/observation: Escalation of care including admission/observation considered Patient would have been admitted to the hospital had her clinical presentation warranted hospital admission. Discharge Plan Discharge Clinical Impression: Rash Patient Disposition: Home, Self-Care Instructions: Acute Rash (ED) Additional Instructions: You should follow up with a emergency vehicle operations instructor. IF you are prescribed home medications and/or you are taking over the counter medications at home - it is very important you continue to do so as prescribed / directed unless told otherwise. Follow up with a primary care provider. Return to the emergency department immediately if your symptoms worsen or if you develop any numbness, tingling, dizziness, shortness of breath, difficulty breathing, chest pain, blurry vision, loss of vision, nausea, vomiting, abdominal pain, fever, chills, back pain, or any other complaints. If you do not have a primary care provider - call any of the below numbers to establish and follow up with a primary care provider. [facility] Primary Care ([place]) [phone] [place] [address] [place], [address] [facility] Primary Care ([address] [place]) [phone] [place] [address], [address] [facility], [address] [facility] Primary Care ([address] [place]) [phone] [place] [address], [address] [facility], [address] [facility] Primary Care ([place]) [phone] [place] [address] [address] [facility], [address] [facility] Family Medicine [phone] [place] [address], [address] Please see the information below about our Patient Portal. If you are not yet enrolled in the [facility] Patient Portal, you will receive an enrollment email invitation following your visit to any [facility] setting. You may also self-enroll in the Patient Portal by visiting our website: [email or web address] The following information is required to access the Patient Portal: - Your [facility] Medical Record Number - Your personal home email address (must match what is in your electronic medical record, Registration staff can assist with this) - Name - Date of Capabilities of the Patient Portal: - Message some providers - View upcoming appointments - Access your health summary, medical history, and visit history - View current conditions and allergies - View procedure and lab results - View your medications, including guidelines, side effects, and precautions - Complete pre-appointment questionnaires requested by your provider - Ready summary reports of your office visits and procedures To access the Patient Portal Mobile Golden, follow these directions: - Search [employer] [facility] in the Golden Store or myOrder Store - Download the Golden - Search for [facility] - Enter your login/password Prescriptions: New prednisone 10 mg tablet See Taper PO DAILY Qty: 24 0RF Taper: Prednisone 40 mg daily for 3 Days and 0 Hour 30 mg daily for 3 Days and 0 Hour 20 mg daily for 3 Days and 0 Hour 10 mg daily for 3 Days and 0 Hour No Action albuterol sulfate 90 mcg/actuation aerosol powdr breath activated 2 inh inhalation Q4-6H PRN (Reason: shortness of breath or wheezing) Qty: 1 0RF doxycycline hyclate 100 mg capsule 100 mg PO BID 10 Days Qty: 20 0RF prednisone 20 mg tablet 40 mg PO DAILY 5 Days Qty: 10 0RF doxycycline monohydrate 100 mg capsule 100 mg PO BID 7 Days Qty: 14 0RF dicloxacillin 500 mg capsule 500 mg PO QID 7 Days Qty: 28 0RF clotrimazole 1 % cream 1 appl topical BID Qty: 30 0RF hydrocortisone [Anti-Itch (HC)] 1 % cream 1 appl topical ONCE Qty: 28.35 0RF Referrals: [facility] [Provider Group] Referral Note: Call to establish and follow up with a emergency vehicle operations instructor. Interventions: ED Discharge Assessment Last Done: 06/01/25 09:05 Discharge Date/Time: 06/01/25 09:06 Print Language: Pashto
--- OUTSIDE RECORDS SUMMARY | 2025-06-01 08:55 | XMS_ITS | Encounter Summary ---
Author Organization [facility] Address [address] [place] [address] Care Team Providers Care Ui Lead Developer Name Role Phone Naty Goldstein NP Primary Care Provider [phone] Encounter Details Date Type Department Care Team (Late Contact Info) Description 10/06/2019 Ophthalmology Data Conversion [facility] Medical [facility] Ophthalmology [address] [place] [phone] Suzie Elise MD [address] [place] [address] Social History Tobacco Use Types Packs/Day Years Used Date Smoking Tobacco: Never Assessed Comments Unknown Sex and Gender Information Value Date Recorded Sex Assigned at Female 06/17/2023 11:41 AM EDT Legal Sex Female 1:18 PM EDT Gender Identity Female 06/17/2023 11:41 AM EDT Sexual Orientation Straight 06/17/2023 11 :41 AM EDT documented as of this encounter Plan of Treatment Upcoming Encounters Date Type Department Care Team (Late Contact Info) Description 06/02/2025 3:00 PM EDT Office Visit [address] Family Practice Department [address] [place] [address] Naty Goldstein NP [address] [place] [address] 11/28/2025 2:30 PM EDT Office Visit [address] Family Practice Department [address] [place] [address] Naty Goldstein NP [address] [place] [address] documented as of this encounter Visit Diagnoses Not on filedocumented in this encounter Additional Health Concerns Infection Onset Date Last Indicated Resolved Time COVID-19 - Suspected infection 10/11/2020 10/11/2020 06/04/2023 11:55 AM EDT COVID-19 - Confirmed infection 10/11/2020 10/11/2020 06/04/2023 10:34 PM EDT COVID-19 - Suspected infection 07/15/2021 07/15/2021 06/04/2023 10:35 PM EDT documented as of this encounter Care Teams Ui Lead Developer Relationship Specialty Start Date End Date Naty Goldstein NP [address] [place] [address] PCP - General Nurse Practitioner 07/03/23 12/28/24 documented as of this encounter
--- OUTSIDE RECORDS SUMMARY | 2025-06-01 08:55 | XMS_ITS | Encounter Summary ---
Author Organization [facility] Address [address] [place] [address] Care Team Providers Care Livestock Broker Name Role Phone Naty Goldstein NP Primary Care Provider [phone] Encounter Details Date Type Department Care Team (Late st Contact Info) Description 03/12/2020 Ophthalmology Data Conversion [facility] Historical Conversion Department [address] [place], [place] [phone] [address] [address] Social History Tobacco Use Types Packs/Day Years [...] Description 06/02/2025 3:00 PM EDT Office Visit [address] Family Practice Department [address] [place] [address] Naty Goldstein NP [address] [place] [address] 11/28/2025 2:30 PM EDT Office Visit [address] Family Practice Department [address] [place] [address] Naty Goldstein NP [address] [place] [address] documented as of this encounter Visit Diagnoses Not on filedocumented in this encounter Additional Health Concerns Infection Onset Date Last Indicated Resolved Time COVID-19 - Suspected infection 10/11/2020 10/11/2020 06/04/2023 11:55 AM EDT COVID-19 - Confirmed infection 10/11/2020 10/11/2020 06/04/2023 10:34 PM EDT COVID-19 - Suspected infection 07/15/2021 07/15/2021 06/04/2023 10:35 PM EDT documented as of this encounter Care Teams Livestock Broker Relationship Specialty Start Date End Date Naty Goldstein NP [address] [place] [address] PCP - General Nurse Practitioner 07/03/23 12/28/24 documented as of this encounter
--- OUTSIDE RECORDS SUMMARY | 2025-06-01 08:55 | XMS_ITS | Encounter Summary ---
Author Organization [facility] Address [address] [place] [address] Care Team Providers Care Special Education Assistant Name Role Phone Naty Goldstein NP Primary Care Provider [phone] Encounter Details Date Type Department Care Team (Late Contact Info) Description 10/06/2019 Ophthalmology Data Conversion [facility] Medical [facility] Ophthalmology [address] [place] [address] Suzie Elise MD [address] [place] [address] Social History Tobacco Use Types Packs/Day Years [...] Description 06/02/2025 3:00 PM EDT Office Visit [address] Family Practice Department [address] [place] [address] Naty Goldstein NP [address] [place] [address] 11/28/2025 2:30 PM EDT Office Visit [address] Family Practice Department [address] [place] [address] Naty Goldstein NP [address] [place] [address] documented as of this encounter Visit Diagnoses Not on filedocumented in this encounter Additional Health Concerns Infection Onset Date Last Indicated Resolved Time COVID-19 - Suspected infection 10/11/2020 10/11/2020 06/04/2023 11:55 AM EDT COVID-19 - Confirmed infection 10/11/2020 10/11/2020 06/04/2023 10:34 PM EDT COVID-19 - Suspected infection 07/15/2021 07/15/2021 06/04/2023 10:35 PM EDT documented as of this encounter Care Teams Special Education Assistant Relationship Specialty Start Date End Date Naty Goldstein NP [address] [place] [address] PCP - General Nurse Practitioner 07/03/23 12/28/24 documented as of this encounter
--- OUTSIDE RECORDS SUMMARY | 2025-06-01 08:55 | XMS_ITS | Encounter Summary ---
Author Organization [facility] Address [address] [place] [address] Care Team Providers Care Business Office Assistant Name Role Phone Naty Goldstein NP Primary Care Provider [phone] Encounter Details Date Type Department Care Team (Late Contact Info) Description 09/20/2019 Ophthalmology Data Conversion [facility] Ophthalmology [address] [place] [address] Suzie Elise MD [address] [place] [address] Social History Tobacco Use Types Packs/Day Years [...] Description 06/02/2025 3:00 PM EDT Office Visit [address] Family Practice Department [address] [place] [address] Naty Goldstein NP [address] [place] [address] 11/28/2025 2:30 PM EDT Office Visit [address] Family Practice Department [address] [place] [address] Naty Goldstein NP [address] [place] [address] documented as of this encounter Visit Diagnoses Not on filedocumented in this encounter Additional Health Concerns Infection Onset Date Last Indicated Resolved Time COVID-19 - Suspected infection 10/11/2020 10/11/2020 06/04/2023 11:55 AM EDT COVID-19 - Confirmed infection 10/11/2020 10/11/2020 06/04/2023 10:34 PM EDT COVID-19 - Suspected infection 07/15/2021 07/15/2021 06/04/2023 10:35 PM EDT documented as of this encounter Care Teams Business Office Assistant Relationship Specialty Start Date End Date Naty Goldstein NP [address] [place] [address] PCP - General Nurse Practitioner 07/03/23 12/28/24 documented as of this encounter
--- OUTSIDE RECORDS SUMMARY | 2025-06-01 08:55 | XMS_ITS | Encounter Summary ---
Author Organization [facility] Address [address] [place] [address] Care Team Providers Care Mortgage Protection Sales Name Role Phone Naty Goldstein NP Primary Care Provider [phone] Encounter Details Date Type Department Care Team (Late Contact Info) Description 11/08/2019 Ophthalmology Data Conversion [facility] Medical [facility] Ophthalmology [address] [place] [address] Suzie Elise MD [address] [place] [address] Social History Tobacco Use Types Packs/Day Years [...] Description 06/02/2025 3:00 PM EDT Office Visit [address] Family Practice Department [address] [place] [address] Naty Goldstein NP [address] [place] [address] 11/28/2025 2:30 PM EDT Office Visit [address] Family Practice Department [address] [place] [address] Naty Goldstein NP [address] [place] [address] documented as of this encounter Visit Diagnoses Not on filedocumented in this encounter Additional Health Concerns Infection Onset Date Last Indicated Resolved Time COVID-19 - Suspected infection 10/11/2020 10/11/2020 06/04/2023 11:55 AM EDT COVID-19 - Confirmed infection 10/11/2020 10/11/2020 06/04/2023 10:34 PM EDT COVID-19 - Suspected infection 07/15/2021 07/15/2021 06/04/2023 10:35 PM EDT documented as of this encounter Care Teams Mortgage Protection Sales Relationship Specialty Start Date End Date Naty Goldstein NP [address] [place] [address] PCP - General Nurse Practitioner 07/03/23 12/28/24 documented as of this encounter
--- OUTSIDE RECORDS SUMMARY | 2025-06-01 08:55 | XMS_ITS | Encounter Summary ---
Author Organization [facility] Address [address] [place] [address] Care Team Providers Care Medical Transport Specialist Name Role Phone Naty Goldstein NP Primary Care Provider Encounter Details Date Type Department Care Team (Late st Contact Info) Description 03/12/2020 Ophthalmology Data Conversion [facility] Historical Conversion Department [address] [place], [place] [phone] [address] [address] Social History Tobacco Use Types Packs/Day Years [...] Description 06/02/2025 3:00 PM EDT Office Visit [address] Family Practice Department [address] [place] [address] Naty Goldstein NP [address] [place] [address] 11/28/2025 2:30 PM EDT Office Visit [address] Family Practice Department [address] [place] [address] Naty Goldstein NP [address] [place] [address] documented as of this encounter Visit Diagnoses Not on filedocumented in this encounter Additional Health Concerns Infection Onset Date Last Indicated Resolved Time COVID-19 - Suspected infection 10/11/2020 10/11/2020 06/04/2023 11:55 AM EDT COVID-19 - Confirmed infection 10/11/2020 10/11/2020 06/04/2023 10:34 PM EDT COVID-19 - Suspected infection 07/15/2021 07/15/2021 06/04/2023 10:35 PM EDT documented as of this encounter Care Teams Medical Transport Specialist Relationship Specialty Start Date End Date Naty Goldstein NP [address] [place] [address] PCP - General Nurse Practitioner 07/03/23 12/28/24 documented as of this encounter
--- OUTSIDE RECORDS SUMMARY | 2025-06-01 08:55 | XMS_ITS | Encounter Summary ---
Author Organization [facility] Address [address] [place] [address] Care Team Providers Care Beef Killer Name Role Phone Naty Goldstein NP Primary Care Provider [phone] Encounter Details Date Type Department Care Team (Late Contact Info) Description 11/08/2019 Ophthalmology Data Conversion [facility] Medical [facility] Ophthalmology [address] [place] [phone] Suzie Elise MD [address] [place] [address] Social History Tobacco Use Types Packs/Day Years [...] Description 06/02/2025 3:00 PM EDT Office Visit [address] Family Practice Department [address] [place] [address] Naty Goldstein NP [address] [place] [address] 11/28/2025 2:30 PM EDT Office Visit [address] Family Practice Department [address] [place] [address] Naty Goldstein NP [address] [place] [address] documented as of this encounter Visit Diagnoses Not on filedocumented in this encounter Additional Health Concerns Infection Onset Date Last Indicated Resolved Time COVID-19 - Suspected infection 10/11/2020 10/11/2020 06/04/2023 11:55 AM EDT COVID-19 - Confirmed infection 10/11/2020 10/11/2020 06/04/2023 10:34 PM EDT COVID-19 - Suspected infection 07/15/2021 07/15/2021 06/04/2023 10:35 PM EDT documented as of this encounter Care Teams Beef Killer Relationship Specialty Start Date End Date Naty Goldstein NP [address] [place] [address] PCP - General Nurse Practitioner 07/03/23 12/28/24 documented as of this encounter
--- OUTSIDE RECORDS SUMMARY | 2025-06-01 08:55 | XMS_ITS | Encounter Summary ---
Author Organization [facility] Address [address] [place] [address] Care Team Providers Care Sole Edge Inker Machine Name Role Phone Naty Goldstein NP Primary Care Provider [phone] Encounter Details Date Type Department Care Team (Late Contact Info) Description 09/27/2019 Ophthalmology Data Conversion [facility] Medical [facility] Ophthalmology [address] [place] [address] Suzie Elise MD [address] [place] [address] Social History Tobacco Use Types Packs/Day Years [...] Description 06/02/2025 3:00 PM EDT Office Visit [address] Family Practice Department [address] [place] [address] Naty Goldstein NP [address] [place] [address] 11/28/2025 2:30 PM EDT Office Visit [address] Family Practice Department [address] [place] [address] Naty Goldstein NP [address] [place] [address] documented as of this encounter Visit Diagnoses Not on filedocumented in this encounter Additional Health Concerns Infection Onset Date Last Indicated Resolved Time COVID-19 - Suspected infection 10/11/2020 10/11/2020 06/04/2023 11:55 AM EDT COVID-19 - Confirmed infection 10/11/2020 10/11/2020 06/04/2023 10:34 PM EDT COVID-19 - Suspected infection 07/15/2021 07/15/2021 06/04/2023 10:35 PM EDT documented as of this encounter Care Teams Sole Edge Inker Machine Relationship Specialty Start Date End Date Naty Goldstein NP [address] [place] [address] PCP - General Nurse Practitioner 07/03/23 12/28/24 documented as of this encounter
--- OUTSIDE RECORDS SUMMARY | 2025-06-01 08:56 | XMS_ITS | Encounter Summary ---
Author Organization [facility] Address [address] [place] [address] Care Team Providers Care Curriculum Development Manager Name Role Phone Naty Goldstein NP Primary Care Provider [phone] Encounter Details Date Type Department Care Team (Late st Contact Info) Description 08/14/2015 Ophthalmology Data Conversion [facility] Historical Conversion Department [address] [place] [address] Stephanie Santiago MD [address] [place] [address] Social History Tobacco Use Types Packs/Day Years [...] Description 06/02/2025 3:00 PM EDT Office Visit [address] Family Practice Department [address] [place] [address] 609[address] Naty Goldstein NP [address] [place] [address] 10[address] 11/28/2025 2:30 PM EDT Office Visit [address] Family Practice Department [address] [place] [address] Naty Goldstein NP [address] [place] [address] documented as of this encounter Visit Diagnoses Not on filedocumented in this encounter Additional Health Concerns Infection Onset Date Last Indicated Resolved Time COVID-19 - Suspected infection 10/11/2020 10/11/2020 06/04/2023 11:55 AM EDT COVID-19 - Confirmed infection 10/11/2020 10/11/2020 06/04/2023 10:34 PM EDT COVID-19 - Suspected infection 07/15/2021 07/15/2021 06/04/2023 10:35 PM EDT documented as of this encounter Care Teams Curriculum Development Manager Relationship Specialty Start Date End Date Naty Goldstein NP [address] [place] [address] PCP - General Nurse Practitioner 07/03/23 12/28/24 documented as of this encounter
--- OUTSIDE RECORDS SUMMARY | 2025-06-01 08:56 | XMS_ITS | Encounter Summary ---
Author Organization [facility] Address [address] [place] [address] Care Team Providers Care News Videographer Name Role Phone Naty Goldstein NP Primary Care Provider [phone] Encounter Details Date Type Department Care Team (Late st Contact Info) Description 06/21/2015 Ophthalmology Data Conversion [facility] Historical Conversion Department [address] [place] [address] Stephanie Santiago MD [address] [place] [address] Social History Tobacco Use Types Packs/Day Years [...] Description 06/02/2025 3:00 PM EDT Office Visit [address] Family Practice Department [address] [place] [address] Naty Goldstein NP [address] [place] [address] 305[address] 11/28/2025 2:30 PM EDT Office Visit [address] Family Practice Department [address] [place] [address] 59[address] Naty Goldstein NP [address] [place] [address] documented as of this encounter Visit Diagnoses Not on filedocumented in this encounter Additional Health Concerns Infection Onset Date Last Indicated Resolved Time COVID-19 - Suspected infection 10/11/2020 10/11/2020 06/04/2023 11:55 AM EDT COVID-19 - Confirmed infection 10/11/2020 10/11/2020 06/04/2023 10:34 PM EDT COVID-19 - Suspected infection 07/15/2021 07/15/2021 06/04/2023 10:35 PM EDT documented as of this encounter Care Teams News Videographer Relationship Specialty Start Date End Date Naty Goldstein NP [address] [place] [address] PCP - General Nurse Practitioner 07/03/23 12/28/24 documented as of this encounter
--- OUTSIDE RECORDS SUMMARY | 2025-06-01 08:56 | XMS_ITS | Encounter Summary ---
Author Organization [facility] Address [address] [place] [address] Care Team Providers Care Crosstie Inspector Name Role Phone Naty Goldstein NP Primary Care Provider [phone] Encounter Details Date Type Department Care Team (Late st Contact Info) Description 07/05/2015 Ophthalmology Data Conversion [facility] Historical Conversion Department [address] [place] [address] Stephanie Santiago MD [address] [place] [address] Social History Tobacco Use Types Packs/Day Years [...] Description 06/02/2025 3:00 PM EDT Office Visit [address] Family Practice Department [address] [place] [address] Naty Goldstein NP [address] [place] [address] 11/28/2025 2:30 PM EDT Office Visit [address] Family Practice Department [address] [place] [address] 94[address] Naty Goldstein NP [address] [place] [address] documented as of this encounter Visit Diagnoses Not on filedocumented in this encounter Additional Health Concerns Infection Onset Date Last Indicated Resolved Time COVID-19 - Suspected infection 10/11/2020 10/11/2020 06/04/2023 11:55 AM EDT COVID-19 - Confirmed infection 10/11/2020 10/11/2020 06/04/2023 10:34 PM EDT COVID-19 - Suspected infection 07/15/2021 07/15/2021 06/04/2023 10:35 PM EDT documented as of this encounter Care Teams Crosstie Inspector Relationship Specialty Start Date End Date Naty Goldstein NP [address] [place] [address] PCP - General Nurse Practitioner 07/03/23 12/28/24 documented as of this encounter
--- OUTSIDE RECORDS SUMMARY | 2025-06-01 08:56 | XMS_ITS | Encounter Summary ---
Author Organization [facility] Address [address] [place] [address] Care Team Providers Care Coil Repair Technician Name Role Phone Naty Goldstein NP Primary Care Provider [phone] Encounter Details Date Type Department Care Team (Late st Contact Info) Description 03/14/2014 Ophthalmology Data Conversion [facility] Historical Conversion Department [address] [place] [address] Stephanie Santiago MD [address] [place] [address] Social History Tobacco Use Types Packs/Day Years [...] Description 06/02/2025 3:00 PM EDT Office Visit [address] Family Practice Department [address] [place] [address] Naty Goldstein NP [address] [place] [address] 209[address] 11/28/2025 2:30 PM EDT Office Visit [address] Family Practice Department [address] [place] [address] Naty Goldstein NP [address] [place] [address] documented as of this encounter Visit Diagnoses Not on filedocumented in this encounter Additional Health Concerns Infection Onset Date Last Indicated Resolved Time COVID-19 - Suspected infection 10/11/2020 10/11/2020 06/04/2023 11:55 AM EDT COVID-19 - Confirmed infection 10/11/2020 10/11/2020 06/04/2023 10:34 PM EDT COVID-19 - Suspected infection 07/15/2021 07/15/2021 06/04/2023 10:35 PM EDT documented as of this encounter Care Teams Coil Repair Technician Relationship Specialty Start Date End Date Naty Goldstein NP [address] [place] [address] PCP - General Nurse Practitioner 07/03/23 12/28/24 documented as of this encounter
--- OUTSIDE RECORDS SUMMARY | 2025-06-01 08:56 | XMS_ITS | Encounter Summary ---
Author Organization [facility] Address [address] [place] [address] Care Team Providers Care Anime Artist Name Role Phone Unavailable Primary Care Provider Unavailabl e Reason for Visit * Reason Onset Date Comments Leg Injury 05/31/2025 Appointment 05/31/2025 Encounter Details Date Type Department Care Team (Late st Contact Info) Description 05/31/[address] Family Practice Department [address] [place] [address] Naty Stiles NP [address] [place] [address] Leg Injury; Appointment Social History Tobacco Use Types Packs/Day Years Used Date Smoking Tobacco: Never Assessed Comments Unknown Sex and Gender Information Value Date Recorded Sex Assigned at Female 06/17/2023 11:41 AM EDT Legal Sex Female 1:18 PM EDT Gender Identity Female 06/17/2023 11:41 AM EDT Sexual Orientation Straight 06/17/2023 11 :41 AM EDT documented as of this encounter Miscellaneous Notes * Telephone Encounter - Flower Martinez RN - 05/31/2025 3:17 PM EDT Spoke with patient, she states she is going to the ER as her eyes are swollen shut. She will keep appt Thursday unless she receives a call from the office or no longer needs appt after ER evaluation. * Telephone Encounter - Flower Martinez RN - 05/31/2025 10:20 AM EDT Spoke with patient. She states she was started on doxy on May 24, and when she went back to the ER on May 28 with hives that had started on May 26, she was advised to continue doxy. She states she took dose last night but will not take any more. She states the baez wound is healing, redness, swelling and are decreasing, but still oozing. She states she also has a yeast infection under and between her breasts, was given a cream at the ER but it is not helping. She states she would like to schedule an appt for this and also schedule a physical as she hasn't had one in 4 yrs. * Telephone Encounter - Jennifer Mata - 05/31/2025 9:22 AM EDT Pt calling to make an apt for a RLE wound. On may 21 she fell. The wound is on right lower leg on the baez. May 24 went to [facility] where it was cleaned out and was given antibiotics. Nothing broken. She went back to the ER on the for pain and worsening infection. They gave her a different antibiotic Doxycycline which pt stoppedtaking it because she believes she's having an allergic reaction to it. Hives. No breathing difficulties. She's taken benadryl. The wound is currently oozing thick yellow puss and is painful. She denies a fever. Hydraulic Technician was able to schedule with CHIO STILES this Saturday 06/02 but the pt wanted to see if she could get in sooner with her. CB verified. Spoke with: [x] Patient [] Patient [] Family Member [] Caregiver Other : The patient was seen at [facility] for: RLE Wound. Were any follow-up studies, labs, or referrals recommended? [x] Yes [] No Is the patient having any concerns at this time: [x] Yes [] No If yes, please document: Infection not healing -yellow puss. Possible allergic reaction to antibiotics given- Hives No SOB Appointment Scheduled [x] Yes [] No With: GO On: 06/02 documented in this encounter Plan of Treatment Upcoming Encounters Date Type Department Care Team (Late st Contact Info) Description 06/02/2025 3:00 PM EDT Office Visit [address] Department [address] [place] [address] Naty Stiles NP [address] [place] [address] 11/28/2025 2:30 PM EDT Office Visit [address] Department [address] [place] [address] Naty Stiles NP [address] [place] [address] documented as of this encounter Visit Diagnoses Not on filedocumented in this encounter
--- OUTSIDE RECORDS SUMMARY | 2025-06-01 08:56 | XMS_ITS | Clinical Summary ---
Author Organization [facility] Address [address] [place] [address] Care Team Providers Care Home Insurance Agent Name Role Phone Unavailable Primary Care Provider [...] to transverse cystectomy and fusion surgery at [facility], by Dr. Nelson Newby on 08/23/2014. Minimal improvement of back pain since that surgery. Subsequently she received spinal steroid injection at [place] [facility] without any significant improvement. Not taking any medication.Reviewed use and effect of tramadol in detail,. Depression 08/06/2016 Overview (08/24/2023): Doing well now. Taking Effexor. tolerating well. Follow-up with therapist/counselor at regular interval at [facility].Denied any suicidal or homicidal plan, thought [...] smoking at this time despite of counseling, Encounters * This document contains information received from the source organization and may not represent a complete record from that organization. Date Type Department Care Team Description 05/31/[address] Family Practice Department [address] [place] [address] Naty Goldstein NP Leg Injury; Appointment from Last 3 Months Immunizations Immunization Administration Dates Next Due Influenza, [...] 01/18/2024 11:04 AM EDT Plan of Treatment Upcoming Encounters Date Type Department Care Team (Late st Contact Info) Description 06/02/2025 3:00 PM EDT Office Visit [address] Practice Department [address] [place] [address] Naty Goldstein NP [address] [place] [address] 11/28/2025 2:30 PM EDT Office Visit [address] Department [address] [place] [address] 32628 Naty Goldstein NP [address] [place] [address] Health Maintenance Due Date Last Done Comments [...] 02/12, 01/12/2018, Additional history exists COVID-19 Vaccine ( season) 2025 Influenza Vaccine (#1) 2025 , 06/21/2018, 08/06/2016, Additional history exists Depression Screening and Follow-Up 03/03/2026 03/03/2025 DTaP,Tdap,and Td Vaccines (2 - Td or Tdap) 06/09/2027 06/09/2017 RSV Vaccine (60+ years old and patients) (1 - 1-dose 75+ series) 2035 Hepatitis B Vaccines Aged Out No long er eligible based on patient's age to complete this topic Procedures * Due to [place] [employer] law, this organization might not be sharing negative HIV tests. Procedure Name Priority Date/Time Associated Diagnosis Comments [facility] SCREENING DIGITAL MAMMO Routine 05/04/2023 11:37 AM EDT from Last 3 Months or Most Recently Relevant to Health Maintenance Results * Due to [place] law, this organization might not be sharing negative HIV tests. * [facility] Screening Digital Mammogram (05/04/2023 11:37 AM EDT) Anatomical Region Laterality Modality Breast Mammography 05/04/2023 11:3 7 AM EDT Narrative 05/14/2023 6:48 AM EDT DEPARTMENT OF RADIOLOGY Patient: BRENDA BRITT WES Unit #: [id number] Ordering MD: LAVERN THORNTON MD : 1960 Procedure: Digital Mammo Screen Age: 62 Location: XRAY Exam Date: 05/04/23 Status: [facility] Room/Bed: Primary MD: LAVERN THORNTON MD Patient Order: LUDY Additional Copy: LAVERN THORNTON MD - #[id number] - DIGSCRMAM BILATERAL DIGITAL TOMOSYNTHESIS SCREENING MAMMOGRAM [...] is recommended. This exam was interpreted at [place], [place]. POI: [place]. Electronically signed by: Lynette Sanchez M.D., cp/thien:05/13/2023 13:57:13 letter sent: A-2 Normal Benign Mammogram BI-RADS: 1 Negative [facility] Procedure Note Lynette Sanchez MD - 06/09/2023 DEPARTMENTOF RADIOLOGY Carlene t: BRENDA BRITT Unit #:[id number] Ordering MD: LAVERN THORNTON MD :1960 Procedure: Digital Mammo Screen Age:62 Location: XRAY ExamDate: 05/04/23 Status: [facility]/Bed: Primary MD: LAVERN THORNTON MD PatientAcct #: [id number] Order:RENASCAM Additional Copy: LAVERN THORNTON MD - #[id number] - DIGSCRMAM BILATERAL DIGITAL TOMOSYNTHESIS SCREENING MAMMOGRAM [...] is recommended. This exam was interpreted at [facility]. POI: [facility]. Electronically signed by: Lynette Sanchez M.D. cp/penseth:05/13/2023 13:57:13 letter sent: A-2 Normal Benign Mammogram BI-RADS: 1 Negative LISA us Lavern Thornton MD IMG BI PROCEDURES Final Resul t from Last 3 Months or Most Recently Relevant to Health Maintenance Insurance [facility] MEDICAID
--- OUTSIDE RECORDS SUMMARY | 2025-06-01 08:56 | XMS_ITS | Encounter Summary ---
Author Organization [facility] Address [address] [place] [address] Care Team Providers Care Nuisance Wildlife Control Operator Name Role Phone Naty Goldstein NP Primary Care Provider [phone] Encounter Details Date Type Department Care Team (Late st Contact Info) Description 06/07/2015 Ophthalmology Data Conversion [facility] Historical Conversion Department [address] [place] [address]15 Stephanie Santiago MD [address] [place] [address] Social History Tobacco Use Types Packs/Day Years [...] 06/02/2025 3:00 PM EDT Office Visit [address] Family Practice Department [address] [place] [address] Naty Goldstein NP [address] [place] [address] 69[address] 11/28/2025 2:30 PM EDT Office Visit [address] Family Practice Department [address] [place] [address] 244[address] Naty Goldstein NP [address] [place] [address] documented as of this encounter Visit Diagnoses Not on filedocumented in this encounter Additional Health Concerns Infection Onset Date Last Indicated Resolved Time COVID-19 - Suspected infection 10/11/2020 10/11/2020 06/04/2023 11:55 AM EDT COVID-19 - Confirmed infection 10/11/2020 10/11/2020 06/04/2023 10:34 PM EDT COVID-19 - Suspected infection 07/15/2021 07/15/2021 06/04/2023 10:35 PM EDT documented as of this encounter Care Teams Nuisance Wildlife Control Operator Relationship Specialty Start Date End Date Naty Goldstein NP [address] [place] [address] PCP - General Nurse Practitioner 07/03/23 12/28/24 documented as of this encounter
--- OUTSIDE RECORDS SUMMARY | 2025-06-01 08:56 | XMS_ITS | Encounter Summary ---
Author Organization [facility] Address [address] [place] [address] Care Team Providers Care Bead Wire Insulator Name Role Phone Naty Goldsetin NP Primary Care Provider Encounter Details Date Type Department Care Team (Late st Contact Info) Description 03/10/2014 Ophthalmology Data Conversion [facility] Historical Conversion Department [address] [place] [address] Stephanie Santiago MD [address] [place] [address] Social History Tobacco Use Types Packs/Day Years [...] Description 06/02/2025 3:00 PM EDT Office Visit [address] Family Practice Department [address] [place] [address] 276[address] Naty Goldstein NP [address] [place] [address] 628[address] 11/28/2025 2:30 PM EDT Office Visit [address] Family Practice Department [address] [place] [address] 56[address] Naty Goldstein NP [address] [place] [address] documented as of this encounter Visit Diagnoses Not on filedocumented in this encounter Additional Health Concerns Infection Onset Date Last Indicated Resolved Time COVID-19 - Suspected infection 10/11/2020 10/11/2020 06/04/2023 11:55 AM EDT COVID-19 - Confirmed infection 10/11/2020 10/11/2020 06/04/2023 10:34 PM EDT COVID-19 - Suspected infection 07/15/2021 07/15/2021 06/04/2023 10:35 PM EDT documented as of this encounter Care Teams Bead Wire Insulator Relationship Specialty Start Date End Date Naty Goldstein NP [address] [place] [address] PCP - General Nurse Practitioner 07/03/23 12/28/24 documented as of this encounter
--- OUTSIDE RECORDS SUMMARY | 2025-06-01 08:56 | XMS_ITS | Encounter Summary ---
Author Organization [facility] Address [address] [place] [address] Care Team Providers Care Oil Well Services Dispatcher Name Role Phone Naty Goldstein NP Primary Care Provider [phone] Encounter Details Date Type Department Care Team (Late st Contact Info) Description 03/08/2015 Ophthalmology Data Conversion [facility] Historical Conversion Department [address] [place] [address] Stephanie Santiago MD [address] [place] [address] Social History Tobacco Use Types Packs/Day Years [...] Description 06/02/2025 3:00 PM EDT Office Visit [address] Family Practice Department [address] [place] [address] Naty Goldstein NP [address] [place] [address] 07126 11/28/2025 2:30 PM EDT Office Visit [address] Family Practice Department [address] [place] [address] 81[address] Naty Goldstein NP [address] [place] [address] documented as of this encounter Visit Diagnoses Not on filedocumented in this encounter Additional Health Concerns Infection Onset Date Last Indicated Resolved Time COVID-19 - Suspected infection 10/11/2020 10/11/2020 06/04/2023 11:55 AM EDT COVID-19 - Confirmed infection 10/11/2020 10/11/2020 06/04/2023 10:34 PM EDT COVID-19 - Suspected infection 07/15/2021 07/15/2021 06/04/2023 10:35 PM EDT documented as of this encounter Care Teams Oil Well Services Dispatcher Relationship Specialty Start Date End Date Naty Goldstein NP [address] [place] [address] PCP - General Nurse Practitioner 07/03/23 12/28/24 documented as of this encounter
--- OUTSIDE RECORDS SUMMARY | 2025-06-01 08:56 | XMS_ITS | Encounter Summary ---
Author Organization [facility] Address [address] [place] [address] Care Team Providers Care Manager Room Name Role Phone Naty Goldstein NP Primary Care Provider [phone] Encounter Details Date Type Department Care Team (Late Contact Info) Description 09/15/[address] [facility] Medical [facility] Ophthalmology [address] [place] [address] Suzie Elise MD [address] [place] [address] Social History Tobacco Use Types Packs/Day Years [...] Description 06/02/2025 3:00 PM EDT Office Visit [address] Family Practice Department [address] [place] [address] Naty Goldstein NP [address] [place] [address] 68[address] 11/28/2025 2:30 PM EDT Office Visit [address] Family Practice Department [address] [place] [address] Naty Goldstein NP [address] [place] [address] documented as of this encounter Visit Diagnoses Not on filedocumented in this encounter Additional Health Concerns Infection Onset Date Last Indicated Resolved Time COVID-19 - Suspected infection 10/11/2020 10/11/2020 06/04/2023 11:55 AM EDT COVID-19 - Confirmed infection 10/11/2020 10/11/2020 06/04/2023 10:34 PM EDT COVID-19 - Suspected infection 07/15/2021 07/15/2021 06/04/2023 10:35 PM EDT documented as of this encounter Care Teams Manager Room Relationship Specialty Start Date End Date Naty Goldstein NP [address] [place] [address] PCP - General Nurse Practitioner 07/03/23 12/28/24 documented as of this encounter
--- OUTSIDE RECORDS SUMMARY | 2025-06-01 08:56 | XMS_ITS | Encounter Summary ---
Author Organization [facility] Address [address] [place] [address] Care Team Providers Care Access Developer Name Role Phone Naty Goldstein NP Primary Care Provider [phone] Encounter Details Date Type Department Care Team (Late Contact Info) Description 08/18/2019 Ophthalmology Data Conversion [facility] Medical [facility] Ophthalmology [address] [place] [address] Suzie Elise MD [address] [place] [address] Social History Tobacco Use Types Packs/Day Years [...] Description 06/02/2025 3:00 PM EDT Office Visit [address] Family Practice Department [address] [place] [address] Naty Goldstein NP [address] [place] [address] 12[address] 11/28/2025 2:30 PM EDT Office Visit [address] Family Practice Department [address] [place] [address] Naty Goldstein NP [address] [place] [address] documented as of this encounter Visit Diagnoses Not on filedocumented in this encounter Additional Health Concerns Infection Onset Date Last Indicated Resolved Time COVID-19 - Suspected infection 10/11/2020 10/11/2020 06/04/2023 11:55 AM EDT COVID-19 - Confirmed infection 10/11/2020 10/11/2020 06/04/2023 10:34 PM EDT COVID-19 - Suspected infection 07/15/2021 07/15/2021 06/04/2023 10:35 PM EDT documented as of this encounter Care Teams Access Developer Relationship Specialty Start Date End Date Naty Goldstein NP [address] [place] [address] PCP - General Nurse Practitioner 07/03/23 12/28/24 documented as of this encounter
--- OUTSIDE RECORDS SUMMARY | 2025-06-01 08:56 | XMS_ITS | Encounter Summary ---
Author Organization [facility] Address [address] [place] [address] Care Team Providers Care Pedodontist Name Role Phone Naty Goldstein NP Primary Care Provider [phone] Encounter Details Date Type Department Care Team (Late st Contact Info) Description 03/08/2015 Ophthalmology Data Conversion [facility] Historical Conversion Department [address] [place] [address] Stephanie Santiago MD [address] [place] [address] Social History Tobacco Use Types Packs/Day Years [...] Description 06/02/2025 3:00 PM EDT Office Visit [address] Family Practice Department [address] [place] [address] Naty Goldstein NP [address] [place] [address] 11/28/2025 2:30 PM EDT Office Visit [address] Family Practice Department [address] [place] [address] 09111 Naty Goldstein NP [address] [place] [address] documented as of this encounter Visit Diagnoses Not on filedocumented in this encounter Additional Health Concerns Infection Onset Date Last Indicated Resolved Time COVID-19 - Suspected infection 10/11/2020 10/11/2020 06/04/2023 11:55 AM EDT COVID-19 - Confirmed infection 10/11/2020 10/11/2020 06/04/2023 10:34 PM EDT COVID-19 - Suspected infection 07/15/2021 07/15/2021 06/04/2023 10:35 PM EDT documented as of this encounter Care Teams Pedodontist Relationship Specialty Start Date End Date Naty Goldstein NP [address] [place] [address] PCP - General Nurse Practitioner 07/03/23 12/28/24 documented as of this encounter
--- OUTSIDE RECORDS SUMMARY | 2025-06-01 08:56 | XMS_ITS | Encounter Summary ---
Author Organization [facility] Address [address] [place] [address] Care Team Providers Care Acetylene Cutter Name Role Phone Naty Goldstein NP Primary Care Provider [phone] Encounter Details Date Type Department Care Team (Late Contact Info) Description 09/01/2019 Ophthalmology Data Conversion [facility] Medical [facility] Ophthalmology [address] [place] [address] Suzie Elise MD [address] [place] [address] Social History Tobacco Use Types Packs/Day Years [...] Description 06/02/2025 3:00 PM EDT Office Visit [address] Family Practice Department [address] [place] [address] Naty Goldstein NP [address] [place] [address] 11/28/2025 2:30 PM EDT Office Visit [address] Family Practice Department [address] [place] [address] Naty Goldstein NP [address] [place] [address] documented as of this encounter Visit Diagnoses Not on filedocumented in this encounter Additional Health Concerns Infection Onset Date Last Indicated Resolved Time COVID-19 - Suspected infection 10/11/2020 10/11/2020 06/04/2023 11:55 AM EDT COVID-19 - Confirmed infection 10/11/2020 10/11/2020 06/04/2023 10:34 PM EDT COVID-19 - Suspected infection 07/15/2021 07/15/2021 06/04/2023 10:35 PM EDT documented as of this encounter Care Teams Acetylene Cutter Relationship Specialty Start Date End Date Naty Goldstein NP [address] [place] [address] PCP - General Nurse Practitioner 07/03/23 12/28/24 documented as of this encounter
--- OUTSIDE RECORDS SUMMARY | 2025-06-01 08:56 | XMS_ITS | Encounter Summary ---
Author Organization [facility] Address [address] [place] [address] Care Team Providers Care Tobacco Wetter Name Role Phone Naty Goldstein NP Primary Care Provider [phone] Encounter Details Date Type Department Care Team (Late st Contact Info) Description 06/21/2015 Ophthalmology Data Conversion [facility] Historical Conversion Department [address] [place] [address] Stephanie Santiago MD [address] [place] [address] Social History Tobacco Use Types Packs/Day Years [...] Description 06/02/2025 3:00 PM EDT Office Visit [address] Family Practice Department [address] [place] [address] Naty Goldstein NP [address] [place] [address] 11/28/2025 2:30 PM EDT Office Visit [address] Family Practice Department [address] [place] [address] Naty Goldstein NP [address] [place] [address] documented as of this encounter Visit Diagnoses Not on filedocumented in this encounter Additional Health Concerns Infection Onset Date Last Indicated Resolved Time COVID-19 - Suspected infection 10/11/2020 10/11/2020 06/04/2023 11:55 AM EDT COVID-19 - Confirmed infection 10/11/2020 10/11/2020 06/04/2023 10:34 PM EDT COVID-19 - Suspected infection 07/15/2021 07/15/2021 06/04/2023 10:35 PM EDT documented as of this encounter Care Teams Tobacco Wetter Relationship Specialty Start Date End Date Naty Goldstein NP [address] [place] [address] PCP - General Nurse Practitioner 07/03/23 12/28/24 documented as of this encounter
--- OUTSIDE RECORDS SUMMARY | 2025-06-01 08:56 | XMS_ITS | Encounter Summary ---
Author Organization [facility] Address [address] [place] [address] Care Team Providers Care Cloth Printer Name Role Phone Naty Goldstein NP Primary Care Provider [phone] Encounter Details Date Type Department Care Team (Late Contact Info) Description 08/18/2019 Ophthalmology Data Conversion [facility] Medical [facility] Ophthalmology [address] [place] [address] Suzie Elise MD [address] [place] [address] Social History Tobacco Use Types Packs/Day Years [...] Description 06/02/2025 3:00 PM EDT Office Visit [address] Family Practice Department [address] [place] [address] Naty Goldstein NP [address] [place] [address] 11/28/2025 2:30 PM EDT Office Visit [address] Family Practice Department [address] [place] [address] Naty Goldstein NP [address] [place] [address] documented as of this encounter Visit Diagnoses Not on filedocumented in this encounter Additional Health Concerns Infection Onset Date Last Indicated Resolved Time COVID-19 - Suspected infection 10/11/2020 10/11/2020 06/04/2023 11:55 AM EDT COVID-19 - Confirmed infection 10/11/2020 10/11/2020 06/04/2023 10:34 PM EDT COVID-19 - Suspected infection 07/15/2021 07/15/2021 06/04/2023 10:35 PM EDT documented as of this encounter Care Teams Cloth Printer Relationship Specialty Start Date End Date Naty Goldstein NP [address] [place] [address] PCP - General Nurse Practitioner 07/03/23 12/28/24 documented as of this encounter
--- OUTSIDE RECORDS SUMMARY | 2025-06-01 08:56 | XMS_ITS | Encounter Summary ---
Author Organization [facility] Address [address] [place] [address] Care Team Providers Care Control Clerk Food And Beverage Name Role Phone Naty Goldstein NP Primary Care Provider [phone] Encounter Details Date Type Department Care Team (Late st Contact Info) Description 05/08/2015 Ophthalmology Data Conversion [facility] Historical Conversion Department [address] [place] [address] Stephanie Santiago MD [address] [place] [address] Social History Tobacco Use Types Packs/Day Years [...] 06/02/2025 3:00 PM EDT Office Visit [address] Family Practice Department [address] [place] [address] Naty Goldstein NP [address] [place] [address] 832[address] 11/28/2025 2:30 PM EDT Office Visit [address] Family Practice Department [address] [place] [address] Naty Goldstein NP [address] [place] [address] documented as of this encounter Visit Diagnoses Not on filedocumented in this encounter Additional Health Concerns Infection Onset Date Last Indicated Resolved Time COVID-19 - Suspected infection 10/11/2020 10/11/2020 06/04/2023 11:55 AM EDT COVID-19 - Confirmed infection 10/11/2020 10/11/2020 06/04/2023 10:34 PM EDT COVID-19 - Suspected infection 07/15/2021 07/15/2021 06/04/2023 10:35 PM EDT documented as of this encounter Care Teams Control Clerk Food And Beverage Relationship Specialty Start Date End Date Naty Goldstein NP [address] [place] [address] PCP - General Nurse Practitioner 07/03/23 12/28/24 documented as of this encounter
--- OUTSIDE RECORDS SUMMARY | 2025-06-01 08:56 | XMS_ITS | Encounter Summary ---
Author Organization [facility] Address [address] [place] [address] Care Team Providers Care Rn Practitioner Name Role Phone Naty Goldstein NP Primary Care Provider [phone] Encounter Details Date Type Department Care Team (Late st Contact Info) Description 03/14/2014 Ophthalmology Data Conversion [facility] Historical Conversion Department [address] [place] [address]59 Stephanie Santiago MD [address] [place] [address] Social History Tobacco Use Types Packs/Day Years [...] Description 06/02/2025 3:00 PM EDT Office Visit [address] Family Practice Department [address] [place] [address] Naty Goldstein NP [address] [place] [address] 29[address] 11/28/2025 2:30 PM EDT Office Visit [address] Family Practice Department [address] [place] [address] 12844 Naty Goldstein NP [address] [place] [address] documented as of this encounter Visit Diagnoses Not on filedocumented in this encounter Additional Health Concerns Infection Onset Date Last Indicated Resolved Time COVID-19 - Suspected infection 10/11/2020 10/11/2020 06/04/2023 11:55 AM EDT COVID-19 - Confirmed infection 10/11/2020 10/11/2020 06/04/2023 10:34 PM EDT COVID-19 - Suspected infection 07/15/2021 07/15/2021 06/04/2023 10:35 PM EDT documented as of this encounter Care Teams Rn Practitioner Relationship Specialty Start Date End Date Naty Goldstein NP [address] [place] [address] PCP - General Nurse Practitioner 07/03/23 12/28/24 documented as of this encounter
--- OUTSIDE RECORDS SUMMARY | 2025-06-01 08:56 | XMS_ITS | Encounter Summary ---
Author Organization [facility] Address [address] [place] [address] Care Team Providers Care Mechanical Inspector Name Role Phone Naty Goldstein NP Primary Care Provider [phone] Encounter Details Date Type Department Care Team (Late st Contact Info) Description 07/05/2015 Ophthalmology Data Conversion [facility] Historical Conversion Department [address] [place] [address] Stephanie Santiago MD [address] [place] [address] Social History Tobacco Use Types Packs/Day Years [...] Description 06/02/2025 3:00 PM EDT Office Visit [address] Family Practice Department [address] [place] [address] 12698 Naty Goldstein NP [address] [place] [address] 11/28/2025 2:30 PM EDT Office Visit [address] Family Practice Department [address] [place] [address] 43783 Naty Goldstein NP [address] [place] [address] documented as of this encounter Visit Diagnoses Not on filedocumented in this encounter Additional Health Concerns Infection Onset Date Last Indicated Resolved Time COVID-19 - Suspected infection 10/11/2020 10/11/2020 06/04/2023 11:55 AM EDT COVID-19 - Confirmed infection 10/11/2020 10/11/2020 06/04/2023 10:34 PM EDT COVID-19 - Suspected infection 07/15/2021 07/15/2021 06/04/2023 10:35 PM EDT documented as of this encounter Care Teams Mechanical Inspector Relationship Specialty Start Date End Date Naty Goldstein NP [address] [place] [address] PCP - General Nurse Practitioner 07/03/23 12/28/24 documented as of this encounter
--- OUTSIDE RECORDS SUMMARY | 2025-06-01 08:56 | XMS_ITS | Encounter Summary ---
Author Organization [facility] Address [address] [place] [address] Care Team Providers Care Knitter Mechanic Name Role Phone Naty Goldstein NP Primary Care Provider [phone] Encounter Details Date Type Department Care Team (Late st Contact Info) Description 03/10/2014 Ophthalmology Data Conversion [facility] Historical Conversion Department [address] [place] [address] 81757 Stephanie Santiago MD [address] [place] [address] Social History Tobacco Use Types Packs/Day Years [...] 06/02/2025 3:00 PM EDT Office Visit [address] Family Practice Department [address] [place] [address] Naty Goldstein NP [address] [place] [address] 370[address] 11/28/2025 2:30 PM EDT Office Visit [address] Family Practice Department [address] [place] [address] 05427 Naty Goldstein NP [address] [place] [address] documented as of this encounter Visit Diagnoses Not on filedocumented in this encounter Additional Health Concerns Infection Onset Date Last Indicated Resolved Time COVID-19 - Suspected infection 10/11/2020 10/11/2020 06/04/2023 11:55 AM EDT COVID-19 - Confirmed infection 10/11/2020 10/11/2020 06/04/2023 10:34 PM EDT COVID-19 - Suspected infection 07/15/2021 07/15/2021 06/04/2023 10:35 PM EDT documented as of this encounter Care Teams Knitter Mechanic Relationship Specialty Start Date End Date Naty Goldstein NP [address] [place] [address] PCP - General Nurse Practitioner 07/03/23 12/28/24 documented as of this encounter
--- OUTSIDE RECORDS SUMMARY | 2025-06-01 08:56 | XMS_ITS | Encounter Summary ---
Author Organization [facility] Address [address] [place] [address] Care Team Providers Care Liquefied Natural Gas Operator Name Role Phone Naty Goldstein NP Primary Care Provider Encounter Details Date Type Department Care Team (Late st Contact Info) Description 11/17/2013 Ophthalmology Data Conversion [facility] Historical Conversion Department [address] [place] [address] Stephanie Santiago MD [address] [place] [address] Social History Tobacco Use Types Packs/Day Years [...] 06/02/2025 3:00 PM EDT Office Visit [address] Family Practice Department [address] [place] [address] Naty Goldstein NP [address] [place] [address] 42788 11/28/2025 2:30 PM EDT Office Visit [address] Family Practice Department [address] [place] [address] 07433 Naty Goldstein NP [address] [place] [address] documented as of this encounter Visit Diagnoses Not on filedocumented in this encounter Additional Health Concerns Infection Onset Date Last Indicated Resolved Time COVID-19 - Suspected infection 10/11/2020 10/11/2020 06/04/2023 11:55 AM EDT COVID-19 - Confirmed infection 10/11/2020 10/11/2020 06/04/2023 10:34 PM EDT COVID-19 - Suspected infection 07/15/2021 07/15/2021 06/04/2023 10:35 PM EDT documented as of this encounter Care Teams Liquefied Natural Gas Operator Relationship Specialty Start Date End Date Naty Goldstein NP [address] [place] [address] PCP - General Nurse Practitioner 07/03/23 12/28/24 documented as of this encounter
--- OUTSIDE RECORDS SUMMARY | 2025-06-01 08:56 | XMS_ITS | Encounter Summary ---
Author Organization [facility] Address [address] [place] [address] Care Team Providers Care Core Placer Name Role Phone Naty Goldstein NP Primary Care Provider [phone] Encounter Details Date Type Department Care Team (Late st Contact Info) Description 06/14/2015 Ophthalmology Data Conversion [facility] Historical Conversion Department [address] [place] [address] 20805 Stephanie Santiago MD [address] [place] [address] Social History Tobacco Use Types Packs/Day Years [...] Description 06/02/2025 3:00 PM EDT Office Visit [address] Family Practice Department [address] [place] [address] Naty Goldstein NP [address] [place] [address] 0[address]21 11/28/2025 2:30 PM EDT Office Visit [address] Family Practice Department [address] [place] [address] 36660 Naty Goldstein NP [address] [place] [address] documented as of this encounter Visit Diagnoses Not on filedocumented in this encounter Additional Health Concerns Infection Onset Date Last Indicated Resolved Time COVID-19 - Suspected infection 10/11/2020 10/11/2020 06/04/2023 11:55 AM EDT COVID-19 - Confirmed infection 10/11/2020 10/11/2020 06/04/2023 10:34 PM EDT COVID-19 - Suspected infection 07/15/2021 07/15/2021 06/04/2023 10:35 PM EDT documented as of this encounter Care Teams Core Placer Relationship Specialty Start Date End Date Naty Goldstein NP [address] [place] [address] PCP - General Nurse Practitioner 07/03/23 12/28/24 documented as of this encounter
--- OUTSIDE RECORDS SUMMARY | 2025-06-01 08:56 | XMS_ITS | Encounter Summary ---
Author Organization [facility] Address [address] [place] [address] Care Team Providers Care Rehabilitation Clerk Name Role Phone Naty Goldstein NP Primary Care Provider Encounter Details Date Type Department Care Team (Late st Contact Info) Description 11/17/2013 Ophthalmology Data Conversion [facility] Historical Conversion Department [address] [place] [address]6715 Stephanie Santiago MD [address] [place] [address] Social History Tobacco Use Types Packs/Day Years [...] Description 06/02/2025 3:00 PM EDT Office Visit [address] Family Practice Department [address] [place] [address] 7[address] Naty Goldstein NP [address] [place] [address] 11/28/2025 2:30 PM EDT Office Visit [address] Family Practice Department [address] [place] [address] 43687 Naty Goldstein NP [address] [place] [address] documented as of this encounter Visit Diagnoses Not on filedocumented in this encounter Additional Health Concerns Infection Onset Date Last Indicated Resolved Time COVID-19 - Suspected infection 10/11/2020 10/11/2020 06/04/2023 11:55 AM EDT COVID-19 - Confirmed infection 10/11/2020 10/11/2020 06/04/2023 10:34 PM EDT COVID-19 - Suspected infection 07/15/2021 07/15/2021 06/04/2023 10:35 PM EDT documented as of this encounter Care Teams Rehabilitation Clerk Relationship Specialty Start Date End Date Naty Goldstein NP [address] [place] [address] PCP - General Nurse Practitioner 07/03/23 12/28/24 documented as of this encounter
[2025-06-01 09:05] VITALS: BP 128/66; PULSE 88; RESP 16; TEMP 36.2; O2SAT 97
--- NOTE | 2025-06-01 09:05 | PC.NURSE ---
pt medicated per order to discharge to home
== END 2025-06-01 09:06 | disposition home or self-care (01) ==
LOC: HO.ED 08:11
PROVIDERS: Emergency Provider Emergency Medicine
DX: R21 Rash and other nonspecific skin eruption (principal)
CPT/HCPCS: 96372; 99283; 99284; J2919

== ENCOUNTER 2025-06-10 08:53 | Emergency (ER) | payer OTHER, SELFPAY ==
[2025-06-10 08:57] VITALS: BP 146/70; PULSE 94; RESP 16; TEMP 36.2; O2SAT 94; BMI 26.4
--- OUTSIDE RECORDS SUMMARY | 2025-06-10 09:13 | XMS_ITS | Clinical Summary ---
Author Organization [facility] Address [address] [place] [address] Care Team Providers Care State Archivist Name Role Phone Unavailable Primary Care Provider [...] Active Problems Problem Noted Date Diagnosed Date Leg wound, right 06/05/2025 Assessment & Plan (06/05/2025 2:38 PM EDT): Continue daily dressing changes. Watch for symptoms of infection. Allergic drug rash 06/05/2025 Assessment & Plan (06/05/2025 2:35 PM EDT): At average risk for colon cancer 08/24/2023 Bereavement reaction 08/24/2023 Chronic left shoulder pain 08/24/2023 Chronic renal insufficiency, stage I 08/24/2023 Elevated glucose 08/24/2023 Eosinophilia 08/24/2023 Fracture of transverse process of lumbar vertebr a 08/24/2023 History of thumb surgery 08/24/2023 Impingement syndrome of left shoulder 08/24/2023 Lumbar radiculopathy, right 08/24/2023 Lumbar spondylosis 08/24/2023 Nontraumatic incomplete tear of left rotator [...] mild 07/13/2023 Nicotine dependence, cigarettes, uncomplicated 1 Chronic back pain 08/06/2016 Overview (08/24/2023): Stable symptoms. Intermittent flare of back pain, mid to low back pain. She underwent T12 and L1 disc excision course to transverse cystectomy and fusion surgery at [facility], by Dr. Nelson Newby on 08/23/2014. Minimal improvement of back pain since that surgery. Subsequently she received spinal steroid injection at [facility] without any significant improvement. Not taking any medication.Reviewed use and effect of tramadol in detail,. Depression 08/06/2016 Overview (08/24/2023): Doing well now. Taking Effexor. tolerating well. Follow-up with therapist/counselor at regular interval at [facility].Denied any suicidal or homicidal plan, thought or [...] Problem Noted Date Diagnosed Date Resolved Date COVID-19 virus infection 08/24/2023 Nausea 08/24/2023 06/05/2025 Obesity 12/05/2016 06/05/2025 Overview (08/24/2023): She has been trying healthy diet and exercises at regular basis. Encouraged to continue low-calorie diet and exercises. Asthma 08/06/2016 02/29/2024 Overview (08/24/2023): Mild intermittent asthma. Well controlled with use of rescue inhaler as needed. Encouraged to quit smoking , not motivated to quit smoking at this time despite of counseling, Encounters * This document contains information received from the source organization and may not represent a complete record from that organization. Date Type Department Care Team Description 06/02/2025 3:00 PM EDT Office Visit [address] Family Practice Department [address] [place] [address] Naty Goldstein NP Wound of right lower extremity, sequela (Primary Dx); Allergic drug rash 05/31/[address] Department [address] [place] [address] Naty Goldstein NP Leg Injury; Appointment from [...] Sign Reading Time Taken Comments Blood Pressure 124/72 06/02/2025 2:42 PM EDT Pulse 117 06/02/2025 2:42 PM EDT Temperature 36.4 C (97.6 F) 06/02/2025 2:42 PM EDT Respiratory Rate - - Oxygen Saturation 94% 06/02/2025 2:42 PM EDT Inhaled Oxygen Concentration - - Weight 71.8 kg (158 lb 3.2 oz) 06/02/2025 2:42 P M EDT Height 165.1 cm (5' 5 ) 06/02/2025 2:42 PM EDT Body Mass Index 26.33 06/02/2025 2:42 PM EDT Plan of Treatment Upcoming Encounters Date Type Department Care Team (Late st Contact Info) Description 11/28/2025 2:30 PM EDT Office Visit [address] Family Practice Department [address] [place] [address] Naty Goldstein, CHIO [address] [place] [address] Health Maintenance Due Date Last Done Comments [...] Health Annual Screening 09/14/2024 Mammogram 05/04/2025 05/04/2023, 06/09/2019, 01/12/2018, Additional history exists COVID-19 Vaccine (1 - 2023- season) 2025 Influenza Vaccine (#1) 2025 3, 06/21/2018, 08/06/2016, Additional history exists Diabetes Screening 02/05/2026 02/05/2023, 0 02/05/2023, 02/05/2023, Additional history exists Depression Screening and Follow-Up 03/03/2026 03/03/2025 DTaP,Tdap,and Td Vaccines (2 - Td or Tdap) 06/09/2027 06/09/2017 RSV Vaccine (60+ years old and patients) (1 - 1-dose 75+ series) 2035 Hepatitis B Vaccines Aged Out No long er eligible based on patient's age to complete this topic Procedures * Due to [place] [employer] law, this organization might not be sharing negative HIV tests. Procedure Name Priority Date/Time Associated Diagnosis Comments LISA SCREENING DIGITAL MAMMO Routine 05/04/2023 11:37 AM EDT HEMOGLOBIN A1C Routine 02/05/2023 10:52 AM EDT from Last 3 Months or Most Recently Relevant to Health Maintenance Results * Due to [place] [employer] law, this organization might not be sharing negative HIV tests. * LISA Screening Digital Mammogram (05/04/2023 11:37 AM EDT) Anatomical Region Laterality Modality Breast Mammography 05/04/2023 11:3 7 AM EDT Narrative 05/14/2023 6:48 AM EDT DEPARTMENT OF RADIOLOGY Patient: BALWINDERBRENDA WES Unit #: [id number] Ordering MD: NOHEMY THORNTON MD : 1960 Procedure: Digital Mammo Screen Age: 62 Location: XRAY Exam Date: 05/04/23 Status: REG [facility] Room/Bed: Primary MD: NOHEMY THORNTON MD Patient Order: [id number] Additional Copy: NOHEMY THORNTON MD - #[id number] - DIGSCRMAM BILATERAL DIGITAL TOMOSYNTHESIS SCREENING MAMMOGRAM [...] is recommended. This exam was interpreted at [place]. POI: [place]. Electronically signed by: Lynette Sanchez M.D., cp/thien:05/13/2023 13:57:13 letter sent: A-2 Normal Benign Mammogram BI-RADS: 1 Negative [facility] Procedure Note Lynette Sanchez MD - 06/09/2023 DEPARTMENTOF RADIOLOGY Carlene t: BRENDA BRITT WES Unit #:[id number] Ordering MD: NOHEMY THORNTON MD :1960 Procedure: Digital Mammo Screen Age:62 Location: XRAY ExamDate: 05/04/23 Status: REG CLIRoom/Bed: Primary MD: NOHEMY THORNTON MD PatientAcct #: [id number] Order:[id number] Additional Copy: NOHEMY THORNTON MD - #[id number] - DIGSCRMAM BILATERAL DIGITAL TOMOSYNTHESIS SCREENING MAMMOGRAM [...] Hector. Electronically signed by: Lynette Sanchez M.D. cp/thien:05/13/2023 13:57:13 letter sent: A-2 Normal Benign Mammogram BI-RADS: 1 Negative [facility] us Nohemy [place] MD IMG BI PROCEDURES Final Resul t * Hemoglobin A1c (02/05/2023 10:52 AM EDT) Hemoglobin A1c 5.5 4.0 - 5.7 % [facility] Comment: Hemoglobin A1c Interpretation Normal Range: less than 5.7% Diabetes: Greater than of equal to 6.5% PreDiabetic: 5.7 to 6.4% Estimated Average Glucose 111 mg/dL [facility] Comment: COMMENT: HgbA1c testing is not valid for patients with: 1) Decreased red blood cell life span (hemoglobinopathies, hemolytic anemia). 2) Significant blood loss. 3) Anemia secondary to nutrional deficiency. 4) Blood transfusions within the past 2-3 months. An alternate test method should be used for these patients. 02/05/2023 10:5 2 AM EDT us Nohemy [place] MD LAB BLOOD ORDERABLES Final Re sult [facility] from Last 3 Months or Most Recently Relevant to Health Maintenance Insurance [facility] MEDICAID
--- OUTSIDE RECORDS SUMMARY | 2025-06-10 09:13 | XMS_ITS | Encounter Summary ---
Author Organization [facility] Address [address] [place] [address] Care Team Providers Care Flight Control Specialist Name Role Phone Naty Goldstein NP Primary Care Provider [phone] Encounter Details Date Type Department Care Team (Late Contact Info) Description 11/08/2019 Ophthalmology Data Conversion [facility] Ophthalmology [address] [place] [address] Suzie Elise MD [address] [place] [address] Social History Tobacco Use Types Packs/Day Years [...] Department Care Team (Late Contact Info) Description 11/28/2025 2:30 PM EDT Office Visit [address] Family Practice Department [address] [place] [address] Naty Goldstein NP [address] [place] [address] documented as of this encounter Visit Diagnoses Not on filedocumented in this encounter Additional Health Concerns Infection Onset Date Last Indicated Resolved Time COVID-19 - Suspected infection 10/11/2020 10/11/2020 06/04/2023 11:55 AM EDT COVID-19 - Confirmed infection 10/11/2020 10/11/2020 06/04/2023 10:34 PM EDT COVID-19 - Suspected infection 07/15/2021 07/15/2021 06/04/2023 10:35 PM EDT documented as of this encounter Care Teams Flight Control Specialist Relationship Specialty Start Date End Date Naty Goldstein NP [address] [place] [address] PCP - General Nurse Practitioner 07/03/23 12/28/24 documented as of this encounter
--- OUTSIDE RECORDS SUMMARY | 2025-06-10 09:13 | XMS_ITS | Encounter Summary ---
Author Organization [facility] Address [address] [place] [address] Care Team Providers Care Salesforce Specialist Name Role Phone Naty Goldstein VICE PRESIDENT RESIDENTIAL SOLAR SALES Primary Care Provider [phone] Encounter Details Date Type Department Care Team (Late st Contact Info) Description 03/08/2015 Ophthalmology Data Conversion [facility] Historical Conversion Department [address] [place] [address] Stephanie Santiago MD [address] [place] [address] Social History Tobacco Use Types Packs/Day Years [...] Description 11/28/2025 2:30 PM EDT Office Visit [address] Family Practice Department [address] [place] [address] Naty Goldstein NP [address] [place] [address] documented as of this encounter Visit Diagnoses Not on filedocumented in this encounter Additional Health Concerns Infection Onset Date Last Indicated Resolved Time COVID-19 - Suspected infection 10/11/2020 10/11/2020 06/04/2023 11:55 AM EDT COVID-19 - Confirmed infection 10/11/2020 10/11/2020 06/04/2023 10:34 PM EDT COVID-19 - Suspected infection 07/15/2021 07/15/2021 06/04/2023 10:35 PM EDT documented as of this encounter Care Teams Salesforce Specialist Relationship Specialty Start Date End Date Naty Goldstein NP [address] [place] [address] PCP - General Nurse Practitioner 07/03/23 12/28/24 documented as of this encounter
--- OUTSIDE RECORDS SUMMARY | 2025-06-10 09:13 | XMS_ITS | Encounter Summary ---
Author Organization [facility] Address [address] [place] [address] Care Team Providers Care 411 Directory Assistance Operator Name Role Phone Naty Goldstein NP Primary Care Provider Encounter Details Date Type Department Care Team (Late Contact Info) Description 09/20/2019 Ophthalmology Data Con[address] [facility] Ophthalmology [address] [place] [address] Suzie Elise MD [address] [place] [address] Social History Tobacco Use Types Packs/Day Years [...] Description 11/28/2025 2:30 PM EDT Office Visit [address] Family Practice Department [address] [place] [address] Naty Goldstein NP [address] [place] [address] documented as of this encounter Visit Diagnoses Not on filedocumented in this encounter Additional Health Concerns Infection Onset Date Last Indicated Resolved Time COVID-19 - Suspected infection 10/11/2020 10/11/2020 06/04/2023 11:55 AM EDT COVID-19 - Confirmed infection 10/11/2020 10/11/2020 06/04/2023 10:34 PM EDT COVID-19 - Suspected infection 07/15/2021 07/15/2021 06/04/2023 10:35 PM EDT documented as of this encounter Care Teams 411 Directory Assistance Operator Relationship Specialty Start Date End Date Naty Goldstein NP [address] [place] [address] PCP - General Nurse Practitioner 07/03/23 12/28/24 documented as of this encounter
--- OUTSIDE RECORDS SUMMARY | 2025-06-10 09:13 | XMS_ITS | Encounter Summary ---
Author Organization [facility] Address [address] [place] [address] Care Team Providers Care Bonderizer Operator Name Role Phone Naty Goldstein NP Primary Care Provider [phone] Encounter Details Date Type Department Care Team (Late st Contact Info) Description 06/14/2015 Ophthalmology Data Conversion [facility] Historical Conversion Department [address] [place] [address] Stephanie Santiago MD [address] [place] [address] Social History Tobacco Use Types Packs/Day Years [...] Description 11/28/2025 2:30 PM EDT Office Visit [address] Family Practice Department [address] [place] [address] Naty Goldstein NP [address] [place] [address] documented as of this encounter Visit Diagnoses Not on filedocumented in this encounter Additional Health Concerns Infection Onset Date Last Indicated Resolved Time COVID-19 - Suspected infection 10/11/2020 10/11/2020 06/04/2023 11:55 AM EDT COVID-19 - Confirmed infection 10/11/2020 10/11/2020 06/04/2023 10:34 PM EDT COVID-19 - Suspected infection 07/15/2021 07/15/2021 06/04/2023 10:35 PM EDT documented as of this encounter Care Teams Bonderizer Operator Relationship Specialty Start Date End Date Naty Goldstein NP [address] [place] [address] PCP - General Nurse Practitioner 07/03/23 12/28/24 documented as of this encounter
--- OUTSIDE RECORDS SUMMARY | 2025-06-10 09:13 | XMS_ITS | Encounter Summary ---
Author Organization [facility] Address [address] [place] [address] Care Team Providers Care Data Conversion Developer Name Role Phone Naty Goldstein PLUCK SEPARATOR Primary Care Provider [phone] Encounter Details Date Type Department Care Team (Late st Contact Info) Description 11/17/2013 Ophthalmology Data Conversion [facility] Historical Conversion Department [address] [place] [address] Stephanie Santiago MD [address] [place] [address] Social History Tobacco Use Types Packs/Day Years [...] Description 11/28/2025 2:30 PM EDT Office Visit [address] Family Practice Department [address] [place] [address] Naty Goldstein NP [address] [place] [address] documented as of this encounter Visit Diagnoses Not on filedocumented in this encounter Additional Health Concerns Infection Onset Date Last Indicated Resolved Time COVID-19 - Suspected infection 10/11/2020 10/11/2020 06/04/2023 11:55 AM EDT COVID-19 - Confirmed infection 10/11/2020 10/11/2020 06/04/2023 10:34 PM EDT COVID-19 - Suspected infection 07/15/2021 07/15/2021 06/04/2023 10:35 PM EDT documented as of this encounter Care Teams Data Conversion Developer Relationship Specialty Start Date End Date Naty Goldstein NP [address] [place] [address]841 PCP - General Nurse Practitioner 07/03/23 12/28/24 documented as of this encounter
--- OUTSIDE RECORDS SUMMARY | 2025-06-10 09:13 | XMS_ITS | Encounter Summary ---
Author Organization [facility] Address [address] [place] [address] Care Team Providers Care Coding Clerks Supervisor Name Role Phone Naty Goldstein NP Primary Care Provider [phone] Encounter Details Date Type Department Care Team (Late st Contact Info) Description 03/12/2020 Ophthalmology Data Conversion [facility] Historical Conversion Department [address] [place] [address] [address] Social History Tobacco Use Types Packs/Day Years [...] Description 11/28/2025 2:30 PM EDT Office Visit [address] Family Practice Department [address] [place] [address] Naty Goldstein NP [address] [place] [address] documented as of this encounter Visit Diagnoses Not on filedocumented in this encounter Additional Health Concerns Infection Onset Date Last Indicated Resolved Time COVID-19 - Suspected infection 10/11/2020 10/11/2020 06/04/2023 11:55 AM EDT COVID-19 - Confirmed infection 10/11/2020 10/11/2020 06/04/2023 10:34 PM EDT COVID-19 - Suspected infection 07/15/2021 07/15/2021 06/04/2023 10:35 PM EDT documented as of this encounter Care Teams Coding Clerks Supervisor Relationship Specialty Start Date End Date Naty Goldstein NP [address] [place] [address] PCP - General Nurse Practitioner 07/03/23 12/28/24 documented as of this encounter
--- OUTSIDE RECORDS SUMMARY | 2025-06-10 09:13 | XMS_ITS | Encounter Summary ---
Author Organization [facility] Address [address] [place] [address] Care Team Providers Care Restaurant And Bar Manager Name Role Phone Naty Goldstein NP Primary Care Provider [phone] Encounter Details Date Type Department Care Team (Late st Contact Info) Description 03/12/2020 Ophthalmology Data Conversion [facility] Historical Conversion Department [address] [place] [address] [address] Social History Tobacco Use Types Packs/Day Years [...] 11/28/2025 2:30 PM EDT Office Visit [address] Family Practice Department [address] [place] [address] Naty Goldstein NP [address] [place] [address] documented as of this encounter Visit Diagnoses Not on filedocumented in this encounter Additional Health Concerns Infection Onset Date Last Indicated Resolved Time COVID-19 - Suspected infection 10/11/2020 10/11/2020 06/04/2023 11:55 AM EDT COVID-19 - Confirmed infection 10/11/2020 10/11/2020 06/04/2023 10:34 PM EDT COVID-19 - Suspected infection 07/15/2021 07/15/2021 06/04/2023 10:35 PM EDT documented as of this encounter Care Teams Restaurant And Bar Manager Relationship Specialty Start Date End Date Naty Goldstein NP [address] [place] [address] PCP - General Nurse Practitioner 07/03/23 12/28/24 documented as of this encounter
--- OUTSIDE RECORDS SUMMARY | 2025-06-10 09:13 | XMS_ITS | Encounter Summary ---
Author Organization [facility] Address [address] [place] [address] Care Team Providers Care Lottery Office Manager Name Role Phone Naty Goldstein NP Primary Care Provider [phone] Encounter Details Date Type Department Care Team (Late Contact Info) Description 09/27/2019 Ophthalmology Data Conversion [facility] Ophthalmology [address] [place] [address] Suzie Elise MD [address] [place] [address] Social History Tobacco Use Types Packs/Day Years [...] Description 11/28/2025 2:30 PM EDT Office Visit [address] Family Practice Department [address] [place] [address] Naty Goldstein NP [address] [place] [address] documented as of this encounter Visit Diagnoses Not on filedocumented in this encounter Additional Health Concerns Infection Onset Date Last Indicated Resolved Time COVID-19 - Suspected infection 10/11/2020 10/11/2020 06/04/2023 11:55 AM EDT COVID-19 - Confirmed infection 10/11/2020 10/11/2020 06/04/2023 10:34 PM EDT COVID-19 - Suspected infection 07/15/2021 07/15/2021 06/04/2023 10:35 PM EDT documented as of this encounter Care Teams Lottery Office Manager Relationship Specialty Start Date End Date Naty Goldstein NP [address] [place] [address] PCP - General Nurse Practitioner 07/03/23 12/28/24 documented as of this encounter
--- OUTSIDE RECORDS SUMMARY | 2025-06-10 09:13 | XMS_ITS | Encounter Summary ---
Author Organization [facility] Address [address] [place] [address] Care Team Providers Care Transportation Maintenance Specialist Name Role Phone Naty Goldstein PROFESSOR OF CRIMINAL JUSTICE Primary Care Provider [phone] Encounter Details Date Type Department Care Team (Late st Contact Info) Description 05/08/2015 Ophthalmology Data Conversion [facility] Historical Conversion Department [address] [place] [address] Stephanie Santiago MD [address] [place] [address] Social History Tobacco Use Types Packs/Day Years [...] Description 11/28/2025 2:30 PM EDT Office Visit [address] Family Practice Department [address] [place] [address] Naty Goldstein NP [address] [place] [address] documented as of this encounter Visit Diagnoses Not on filedocumented in this encounter Additional Health Concerns Infection Onset Date Last Indicated Resolved Time COVID-19 - Suspected infection 10/11/2020 10/11/2020 06/04/2023 11:55 AM EDT COVID-19 - Confirmed infection 10/11/2020 10/11/2020 06/04/2023 10:34 PM EDT COVID-19 - Suspected infection 07/15/2021 07/15/2021 06/04/2023 10:35 PM EDT documented as of this encounter Care Teams Transportation Maintenance Specialist Relationship Specialty Start Date End Date Naty Goldstein NP [address] [place] [address] PCP - General Nurse Practitioner 07/03/23 12/28/24 documented as of this encounter
--- OUTSIDE RECORDS SUMMARY | 2025-06-10 09:13 | XMS_ITS | Encounter Summary ---
Author Organization [facility] Address [address] [place] [address] Care Team Providers Care Broacher Name Role Phone Naty Goldstein SALES PROGRAM COORDINATOR Primary Care Provider [phone] Encounter Details Date Type Department Care Team (Late st Contact Info) Description 03/10/2014 Ophthalmology Data Conversion [facility] Historical Conversion Department [address] [place] [address] Stephanie Santiago MD [address] [place] [address] Social History Tobacco Use Types Packs/Day Years [...] Description 11/28/2025 2:30 PM EDT Office Visit [address] Family Practice Department [address] [place] [address] Naty Goldstein NP [address] [place] [address] documented as of this encounter Visit Diagnoses Not on filedocumented in this encounter Additional Health Concerns Infection Onset Date Last Indicated Resolved Time COVID-19 - Suspected infection 10/11/2020 10/11/2020 06/04/2023 11:55 AM EDT COVID-19 - Confirmed infection 10/11/2020 10/11/2020 06/04/2023 10:34 PM EDT COVID-19 - Suspected infection 07/15/2021 07/15/2021 06/04/2023 10:35 PM EDT documented as of this encounter Care Teams Broacher Relationship Specialty Start Date End Date Naty Goldstein NP [address] [place] [address] PCP - General Nurse Practitioner 07/03/23 12/28/24 documented as of this encounter
--- OUTSIDE RECORDS SUMMARY | 2025-06-10 09:13 | XMS_ITS | Encounter Summary ---
Author Organization [facility] Address [address] [place] [address] Care Team Providers Care Manager Farm Name Role Phone Naty Goldstein INDUSTRIAL MAINTENANCE ELECTRICIAN Primary Care Provider [phone] Encounter Details Date Type Department Care Team (Late st Contact Info) Description 03/14/2014 Ophthalmology Data Conversion [facility] Historical Conversion Department [address] [place] [address] Stephanie Santiago MD [address] [place] [address] Social History Tobacco Use Types Packs/Day Years [...] Description 11/28/2025 2:30 PM EDT Office Visit [address] Family Practice Department [address] [place] [address] Naty Goldstein NP [address] [place] [address] documented as of this encounter Visit Diagnoses Not on filedocumented in this encounter Additional Health Concerns Infection Onset Date Last Indicated Resolved Time COVID-19 - Suspected infection 10/11/2020 10/11/2020 06/04/2023 11:55 AM EDT COVID-19 - Confirmed infection 10/11/2020 10/11/2020 06/04/2023 10:34 PM EDT COVID-19 - Suspected infection 07/15/2021 07/15/2021 06/04/2023 10:35 PM EDT documented as of this encounter Care Teams Manager Farm Relationship Specialty Start Date End Date Naty Goldstein NP [address] [place] [address] PCP - General Nurse Practitioner 07/03/23 12/28/24 documented as of this encounter
--- OUTSIDE RECORDS SUMMARY | 2025-06-10 09:13 | XMS_ITS | Encounter Summary ---
Author Organization [facility] Address [address] [place] [address] Care Team Providers Care Radial Router Operator Name Role Phone Naty Goldstein MAGAZINE SUPERVISOR Primary Care Provider [phone] Encounter Details Date Type Department Care Team (Late st Contact Info) Description 03/08/2015 Ophthalmology Data Conversion [facility] Historical Conversion Department [address] [place] [phone] Stephanie Santiago MD [address] [place] [address] Social History Tobacco Use Types Packs/Day Years [...] Description 11/28/2025 2:30 PM EDT Office Visit [address] Family Practice Department [address] [place] [address] Naty Goldstein NP [address] [place] [address] documented as of this encounter Visit Diagnoses Not on filedocumented in this encounter Additional Health Concerns Infection Onset Date Last Indicated Resolved Time COVID-19 - Suspected infection 10/11/2020 10/11/2020 06/04/2023 11:55 AM EDT COVID-19 - Confirmed infection 10/11/2020 10/11/2020 06/04/2023 10:34 PM EDT COVID-19 - Suspected infection 07/15/2021 07/15/2021 06/04/2023 10:35 PM EDT documented as of this encounter Care Teams Radial Router Operator Relationship Specialty Start Date End Date Naty Goldstein NP [address] [place] [address] PCP - General Nurse Practitioner 07/03/23 12/28/24 documented as of this encounter
--- OUTSIDE RECORDS SUMMARY | 2025-06-10 09:13 | XMS_ITS | Encounter Summary ---
Author Organization [facility] Address [address] [place] [address] Care Team Providers Care Assistive Technology Trainer Name Role Phone Naty Goldstein MAINSPRING STRIP GAUGER Primary Care Provider [phone] Encounter Details Date Type Department Care Team (Late st Contact Info) Description 06/07/2015 Ophthalmology Data Conversion [facility] Historical Conversion Department [address] [place] [address] Stephanie Santiago MD [address] [place] [address] Social History Tobacco Use Types Packs/Day Years [...] Description 11/28/2025 2:30 PM EDT Office Visit [address] Family Practice Department [address] [place] [address] Naty Goldstein NP [address] [place] [address] documented as of this encounter Visit Diagnoses Not on filedocumented in this encounter Additional Health Concerns Infection Onset Date Last Indicated Resolved Time COVID-19 - Suspected infection 10/11/2020 10/11/2020 06/04/2023 11:55 AM EDT COVID-19 - Confirmed infection 10/11/2020 10/11/2020 06/04/2023 10:34 PM EDT COVID-19 - Suspected infection 07/15/2021 07/15/2021 06/04/2023 10:35 PM EDT documented as of this encounter Care Teams Assistive Technology Trainer Relationship Specialty Start Date End Date Naty Goldstein NP [address] [place] [address] PCP - General Nurse Practitioner 07/03/23 12/28/24 documented as of this encounter
--- OUTSIDE RECORDS SUMMARY | 2025-06-10 09:13 | XMS_ITS | Encounter Summary ---
Author Organization [facility] Address [address] [place] [address] Care Team Providers Care Hydrographic Surveyor Name Role Phone Naty Goldstein NP Primary Care Provider [phone] Encounter Details Date Type Department Care Team (Late Contact Info) Description 10/06/2019 Ophthalmology Data Conversion [facility] Ophthalmology [address] [place] [phone] Suzie Elise MD [address] [place] [address] Social History Tobacco Use Types Packs/Day Years [...] Description 11/28/2025 2:30 PM EDT Office Visit [address] Family Practice Department [address] [place] [address] Naty Goldstein NP [address] [place] [address] documented as of this encounter Visit Diagnoses Not on filedocumented in this encounter Additional Health Concerns Infection Onset Date Last Indicated Resolved Time COVID-19 - Suspected infection 10/11/2020 10/11/2020 06/04/2023 11:55 AM EDT COVID-19 - Confirmed infection 10/11/2020 10/11/2020 06/04/2023 10:34 PM EDT COVID-19 - Suspected infection 07/15/2021 07/15/2021 06/04/2023 10:35 PM EDT documented as of this encounter Care Teams Hydrographic Surveyor Relationship Specialty Start Date End Date Naty Goldstein NP [address] [place] [address] PCP - General Nurse Practitioner 07/03/23 12/28/24 documented as of this encounter
--- OUTSIDE RECORDS SUMMARY | 2025-06-10 09:13 | XMS_ITS | Encounter Summary ---
Author Organization [facility] Address [address] [place] [address] Care Team Providers Care Posting Specialist Name Role Phone Naty Goldstein NP Primary Care Provider [phone] Encounter Details Date Type Department Care Team (Late Contact Info) Description 10/06/2019 Ophthalmology Data Conversion [facility] Ophthalmology [address] [place] [phone] Suzie Elise MD [address] [place] [address] Social History Tobacco Use Types Packs/Day Years [...] Description 11/28/2025 2:30 PM EDT Office Visit [address] Family Practice Department [address] [place] [address] Naty Goldstein NP [address] [place] [address] documented as of this encounter Visit Diagnoses Not on filedocumented in this encounter Additional Health Concerns Infection Onset Date Last Indicated Resolved Time COVID-19 - Suspected infection 10/11/2020 10/11/2020 06/04/2023 11:55 AM EDT COVID-19 - Confirmed infection 10/11/2020 10/11/2020 06/04/2023 10:34 PM EDT COVID-19 - Suspected infection 07/15/2021 07/15/2021 06/04/2023 10:35 PM EDT documented as of this encounter Care Teams Posting Specialist Relationship Specialty Start Date End Date Naty Goldstein NP [address] [place] [address] PCP - General Nurse Practitioner 07/03/23 12/28/24 documented as of this encounter
--- OUTSIDE RECORDS SUMMARY | 2025-06-10 09:13 | XMS_ITS | Encounter Summary ---
Author Organization [facility] Address [address] [place] [address] Care Team Providers Care Textile Technologist Name Role Phone Naty Goldstein NP Primary Care Provider [phone] Encounter Details Date Type Department Care Team (Late st Contact Info) Description 06/21/2015 Ophthalmology Data Conversion [facility] Historical Conversion Department [address] [place] [address] Stephanie Santiago MD [address] [place] [address] Social History Tobacco Use Types Packs/Day Years [...] 11/28/2025 2:30 PM EDT Office Visit [address] Family Practice Department [address] [place] [address] Naty Goldstein NP [address] [place] [address] documented as of this encounter Visit Diagnoses Not on filedocumented in this encounter Additional Health Concerns Infection Onset Date Last Indicated Resolved Time COVID-19 - Suspected infection 10/11/2020 10/11/2020 06/04/2023 11:55 AM EDT COVID-19 - Confirmed infection 10/11/2020 10/11/2020 06/04/2023 10:34 PM EDT COVID-19 - Suspected infection 07/15/2021 07/15/2021 06/04/2023 10:35 PM EDT documented as of this encounter Care Teams Textile Technologist Relationship Specialty Start Date End Date Naty Goldstein NP [address] [place] [address] PCP - General Nurse Practitioner 07/03/23 12/28/24 documented as of this encounter
--- OUTSIDE RECORDS SUMMARY | 2025-06-10 09:13 | XMS_ITS | Encounter Summary ---
Author Organization [facility] Address [address] [place] [address] Care Team Providers Care Electronics Engineering Professor Name Role Phone Naty Goldstein ASSISTANT PROFESSOR OF BIOLOGY Primary Care Provider [phone] Encounter Details Date Type Department Care Team (Late st Contact Info) Description 03/10/2014 Ophthalmology Data Conversion [facility] Historical Conversion Department [address] [place] [address] Stephanie Santiago MD [address] [place] [address] Social History Tobacco Use Types Packs/Day Years [...] Description 11/28/2025 2:30 PM EDT Office Visit [address] Family Practice Department [address] [place] [address] Naty Goldstein NP [address] [place] [address] documented as of this encounter Visit Diagnoses Not on filedocumented in this encounter Additional Health Concerns Infection Onset Date Last Indicated Resolved Time COVID-19 - Suspected infection 10/11/2020 10/11/2020 06/04/2023 11:55 AM EDT COVID-19 - Confirmed infection 10/11/2020 10/11/2020 06/04/2023 10:34 PM EDT COVID-19 - Suspected infection 07/15/2021 07/15/2021 06/04/2023 10:35 PM EDT documented as of this encounter Care Teams Electronics Engineering Professor Relationship Specialty Start Date End Date Naty Goldstein NP [address] [place] [address] PCP - General Nurse Practitioner 07/03/23 12/28/24 documented as of this encounter
--- OUTSIDE RECORDS SUMMARY | 2025-06-10 09:13 | XMS_ITS | Encounter Summary ---
Author Organization [facility] Address [address] [place] [address] Care Team Providers Care Trauma Coordinator Name Role Phone Naty Goldstein LOADERS Primary Care Provider [phone] Encounter Details Date Type Department Care Team (Late st Contact Info) Description 11/17/2013 Ophthalmology Data Conversion [facility] Historical Conversion Department [address] [place] [address] Stephanie Santiago MD [address] [place] [address] Social History Tobacco Use Types Packs/Day Years [...] Description 11/28/2025 2:30 PM EDT Office Visit [address] Family Practice Department [address] [place] [address] Naty Goldstein NP [address] [place] [address] documented as of this encounter Visit Diagnoses Not on filedocumented in this encounter Additional Health Concerns Infection Onset Date Last Indicated Resolved Time COVID-19 - Suspected infection 10/11/2020 10/11/2020 06/04/2023 11:55 AM EDT COVID-19 - Confirmed infection 10/11/2020 10/11/2020 06/04/2023 10:34 PM EDT COVID-19 - Suspected infection 07/15/2021 07/15/2021 06/04/2023 10:35 PM EDT documented as of this encounter Care Teams Trauma Coordinator Relationship Specialty Start Date End Date Naty Goldstein NP [address] [place] [address] PCP - General Nurse Practitioner 07/03/23 12/28/24 documented as of this encounter
--- OUTSIDE RECORDS SUMMARY | 2025-06-10 09:13 | XMS_ITS | Encounter Summary ---
Author Organization [facility] Address [address] [place] [address] Care Team Providers Care Sample Checker Name Role Phone Naty Goldstein NP Primary Care Provider [phone] Encounter Details Date Type Department Care Team (Late Contact Info) Description 11/08/2019 Ophthalmology Data Conversion [facility] Ophthalmology [address] [place] [phone] Suzie Elise MD [address] [place] [address] Social History Tobacco Use Types Packs/Day Years [...] Description 11/28/2025 2:30 PM EDT Office Visit [address] Family Practice Department [address] [place] [address] Naty Goldstein NP [address] [place] [address] documented as of this encounter Visit Diagnoses Not on filedocumented in this encounter Additional Health Concerns Infection Onset Date Last Indicated Resolved Time COVID-19 - Suspected infection 10/11/2020 10/11/2020 06/04/2023 11:55 AM EDT COVID-19 - Confirmed infection 10/11/2020 10/11/2020 06/04/2023 10:34 PM EDT COVID-19 - Suspected infection 07/15/2021 07/15/2021 06/04/2023 10:35 PM EDT documented as of this encounter Care Teams Sample Checker Relationship Specialty Start Date End Date Naty Goldstein NP [address] [place] [address] PCP - General Nurse Practitioner 07/03/23 12/28/24 documented as of this encounter
--- OUTSIDE RECORDS SUMMARY | 2025-06-10 09:14 | XMS_ITS | Encounter Summary ---
Author Organization [facility] Address [address] [place] [address] Care Team Providers Care Raimann Machine Operator Name Role Phone Naty Goldstein NP Primary Care Provider [phone] Encounter Details Date Type Department Care Team (Late Contact Info) Description 08/18/2019 Ophthalmology Data Conversion [facility] Ophthalmology [address] [place] [address] Suzie Elise MD [address] [place] [address] Social History Tobacco Use Types Packs/Day Years [...] Description 11/28/2025 2:30 PM EDT Office Visit [address] Family Practice Department [address] [place] [address] Naty Goldstein NP [address] [place] [address] documented as of this encounter Visit Diagnoses Not on filedocumented in this encounter Additional Health Concerns Infection Onset Date Last Indicated Resolved Time COVID-19 - Suspected infection 10/11/2020 10/11/2020 06/04/2023 11:55 AM EDT COVID-19 - Confirmed infection 10/11/2020 10/11/2020 06/04/2023 10:34 PM EDT COVID-19 - Suspected infection 07/15/2021 07/15/2021 06/04/2023 10:35 PM EDT documented as of this encounter Care Teams Raimann Machine Operator Relationship Specialty Start Date End Date Naty Goldstein NP [address] [place] [address] PCP - General Nurse Practitioner 07/03/23 12/28/24 documented as of this encounter
--- OUTSIDE RECORDS SUMMARY | 2025-06-10 09:14 | XMS_ITS | Encounter Summary ---
Author Organization [facility] Address [address] [place] [address] Care Team Providers Care Admitting Officer Name Role Phone Naty Goldstein NP Primary Care Provider [phone] Encounter Details Date Type Department Care Team (Late Contact Info) Description 09/01/2019 Ophthalmology Data Conversion [facility] Ophthalmology [address] [place] [address] Suzie Elise MD [address] [place] [address] Social History Tobacco Use Types Packs/Day Years [...] Description 11/28/2025 2:30 PM EDT Office Visit [address] Family Practice Department [address] [place] [address] Naty Goldstein NP [address] [place] [address] documented as of this encounter Visit Diagnoses Not on filedocumented in this encounter Additional Health Concerns Infection Onset Date Last Indicated Resolved Time COVID-19 - Suspected infection 10/11/2020 10/11/2020 06/04/2023 11:55 AM EDT COVID-19 - Confirmed infection 10/11/2020 10/11/2020 06/04/2023 10:34 PM EDT COVID-19 - Suspected infection 07/15/2021 07/15/2021 06/04/2023 10:35 PM EDT documented as of this encounter Care Teams Admitting Officer Relationship Specialty Start Date End Date Naty Goldstein NP [address] [place] [address] PCP - General Nurse Practitioner 07/03/23 12/28/24 documented as of this encounter
--- OUTSIDE RECORDS SUMMARY | 2025-06-10 09:14 | XMS_ITS | Encounter Summary ---
Author Organization [facility] Address [address] [place] [address] Care Team Providers Care Shuttle Threader Name Role Phone Naty Goldstein NP Primary Care Provider [phone] Encounter Details Date Type Department Care Team (Late st Contact Info) Description 08/14/2015 Ophthalmology Data Conversion [facility] Historical Conversion Department [address] [place] [address] Stephanie Santiago MD [address] [place] [address] Social History Tobacco Use Types Packs/Day Years [...] Description 11/28/2025 2:30 PM EDT Office Visit [address] Family Practice Department [address] [place] [address] Naty Goldstein NP [address] [place] [address] documented as of this encounter Visit Diagnoses Not on filedocumented in this encounter Additional Health Concerns Infection Onset Date Last Indicated Resolved Time COVID-19 - Suspected infection 10/11/2020 10/11/2020 06/04/2023 11:55 AM EDT COVID-19 - Confirmed infection 10/11/2020 10/11/2020 06/04/2023 10:34 PM EDT COVID-19 - Suspected infection 07/15/2021 07/15/2021 06/04/2023 10:35 PM EDT documented as of this encounter Care Teams Shuttle Threader Relationship Specialty Start Date End Date Naty Goldstein NP [address] [place] [address] PCP - General Nurse Practitioner 07/03/23 12/28/24 documented as of this encounter
--- OUTSIDE RECORDS SUMMARY | 2025-06-10 09:14 | XMS_ITS | Encounter Summary ---
Author Organization [facility] Address [address] [place] [address] Care Team Providers Care Inspector Heating And Refrigeration Name Role Phone Naty Goldstein DIRECTOR PAYER Primary Care Provider [phone] Encounter Details Date Type Department Care Team (Late st Contact Info) Description 03/14/2014 Ophthalmology Data Conversion [facility] Historical Conversion Department [address] [place] [address] Stephanie Santiago MD [address] [place] [address] Social History Tobacco Use Types Packs/Day Years [...] Description 11/28/2025 2:30 PM EDT Office Visit [address] Family Practice Department [address] [place] [address] Naty Goldstein NP [address] [place] [address] documented as of this encounter Visit Diagnoses Not on filedocumented in this encounter Additional Health Concerns Infection Onset Date Last Indicated Resolved Time COVID-19 - Suspected infection 10/11/2020 10/11/2020 06/04/2023 11:55 AM EDT COVID-19 - Confirmed infection 10/11/2020 10/11/2020 06/04/2023 10:34 PM EDT COVID-19 - Suspected infection 07/15/2021 07/15/2021 06/04/2023 10:35 PM EDT documented as of this encounter Care Teams Inspector Heating And Refrigeration Relationship Specialty Start Date End Date Naty Goldstein NP [address] [place] [address] PCP - General Nurse Practitioner 07/03/23 12/28/24 documented as of this encounter
--- OUTSIDE RECORDS SUMMARY | 2025-06-10 09:14 | XMS_ITS | Encounter Summary ---
Author Organization [facility] Address [address] [place] [address] Care Team Providers Care Director Of Student Services Name Role Phone Naty Goldstein NP Primary Care Provider [phone] Encounter Details Date Type Department Care Team (Late st Contact Info) Description 07/05/2015 Ophthalmology Data Conversion [facility] Historical Conversion Department [address] [place] [address] Stephanie Santiago MD [address] [place] [address] Social History Tobacco Use Types Packs/Day Years [...] 11/28/2025 2:30 PM EDT Office Visit [address] Family Practice Department [address] [place] [address] Naty Goldstein NP [address] [place] [address] documented as of this encounter Visit Diagnoses Not on filedocumented in this encounter Additional Health Concerns Infection Onset Date Last Indicated Resolved Time COVID-19 - Suspected infection 10/11/2020 10/11/2020 06/04/2023 11:55 AM EDT COVID-19 - Confirmed infection 10/11/2020 10/11/2020 06/04/2023 10:34 PM EDT COVID-19 - Suspected infection 07/15/2021 07/15/2021 06/04/2023 10:35 PM EDT documented as of this encounter Care Teams Director Of Student Services Relationship Specialty Start Date End Date Naty Goldstein NP [address] [place] [address] PCP - General Nurse Practitioner 07/03/23 12/28/24 documented as of this encounter
--- OUTSIDE RECORDS SUMMARY | 2025-06-10 09:14 | XMS_ITS | Encounter Summary ---
Author Organization [facility] Address [address] [place] [address] Care Team Providers Care Market Research Coordinator Name Role Phone Naty Goldstein NP Primary Care Provider [phone] Encounter Details Date Type Department Care Team (Late Contact Info) Description 08/18/2019 Ophthalmology Data Conversion [facility] Ophthalmology [address] [place] [address] Suzie Elise MD [address] [place] [address] Social History Tobacco Use Types Packs/Day Years [...] Description 11/28/2025 2:30 PM EDT Office Visit [address] Family Practice Department [address] [place] [address] Naty Goldstein NP [address] [place] [address] documented as of this encounter Visit Diagnoses Not on filedocumented in this encounter Additional Health Concerns Infection Onset Date Last Indicated Resolved Time COVID-19 - Suspected infection 10/11/2020 10/11/2020 06/04/2023 11:55 AM EDT COVID-19 - Confirmed infection 10/11/2020 10/11/2020 06/04/2023 10:34 PM EDT COVID-19 - Suspected infection 07/15/2021 07/15/2021 06/04/2023 10:35 PM EDT documented as of this encounter Care Teams Market Research Coordinator Relationship Specialty Start Date End Date Naty Goldstein NP [address] [place] [address] PCP - General Nurse Practitioner 07/03/23 12/28/24 documented as of this encounter
--- OUTSIDE RECORDS SUMMARY | 2025-06-10 09:14 | XMS_ITS | Encounter Summary ---
Author Organization [facility] Address [address] [place] [address] Care Team Providers Care Trailhead Maintenance Worker Name Role Phone Naty Goldstein NP Primary Care Provider [phone] Encounter Details Date Type Department Care Team (Late Contact Info) Description 09/15/2019 Ophthalmology Data Conversion [facility] Ophthalmology [address] [place] [address] Suzie Elise MD [address] [place] [address] Social History Tobacco Use Types Packs/Day Years [...] Description 11/28/2025 2:30 PM EDT Office Visit [address] Family Practice Department [address] [place] [address] Ntay Godlstein NP [address] [place] [address] documented as of this encounter Visit Diagnoses Not on filedocumented in this encounter Additional Health Concerns Infection Onset Date Last Indicated Resolved Time COVID-19 - Suspected infection 10/11/2020 10/11/2020 06/04/2023 11:55 AM EDT COVID-19 - Confirmed infection 10/11/2020 10/11/2020 06/04/2023 10:34 PM EDT COVID-19 - Suspected infection 07/15/2021 07/15/2021 06/04/2023 10:35 PM EDT documented as of this encounter Care Teams Trailhead Maintenance Worker Relationship Specialty Start Date End Date Naty Goldstein NP [address] [place] [address] PCP - General Nurse Practitioner 07/03/23 12/28/24 documented as of this encounter
--- OUTSIDE RECORDS SUMMARY | 2025-06-10 09:14 | XMS_ITS | Encounter Summary ---
Author Organization [facility] Address [address] [place] [address] Care Team Providers Care Visual Stylist Name Role Phone Naty Goldstein NP Primary Care Provider [phone] Encounter Details Date Type Department Care Team (Late st Contact Info) Description 07/05/2015 Ophthalmology Data Conversion [facility] Historical Conversion Department [address] [place] [phone] Stephanie Santiago MD [address] [place] [address] Social History Tobacco Use Types Packs/Day Years [...] Description 11/28/2025 2:30 PM EDT Office Visit [address] Family Practice Department [address] [place] [address] Naty Goldstein NP [address] [place] [address] documented as of this encounter Visit Diagnoses Not on filedocumented in this encounter Additional Health Concerns Infection Onset Date Last Indicated Resolved Time COVID-19 - Suspected infection 10/11/2020 10/11/2020 06/04/2023 11:55 AM EDT COVID-19 - Confirmed infection 10/11/2020 10/11/2020 06/04/2023 10:34 PM EDT COVID-19 - Suspected infection 07/15/2021 07/15/2021 06/04/2023 10:35 PM EDT documented as of this encounter Care Teams Visual Stylist Relationship Specialty Start Date End Date Naty Goldstein NP [address] [place] [address] PCP - General Nurse Practitioner 07/03/23 12/28/24 documented as of this encounter
--- OUTSIDE RECORDS SUMMARY | 2025-06-10 09:14 | XMS_ITS | Encounter Summary ---
Author Organization [facility] Address [address] [place] [address] Care Team Providers Care Sales Administrator Name Role Phone Naty Goldstein NP Primary Care Provider [phone] Encounter Details Date Type Department Care Team (Late st Contact Info) Description 06/21/2015 Ophthalmology Data Conversion [facility] Historical Conversion Department [address] [place] [id number] Stephanie Santiago MD [address] [place] [address] Social History Tobacco Use Types Packs/Day Years [...] Description 11/28/2025 2:30 PM EDT Office Visit [address] Family Practice Department [address] [place] [address] Naty Goldstein NP [address] [place] [address] documented as of this encounter Visit Diagnoses Not on filedocumented in this encounter Additional Health Concerns Infection Onset Date Last Indicated Resolved Time COVID-19 - Suspected infection 10/11/2020 10/11/2020 06/04/2023 11:55 AM EDT COVID-19 - Confirmed infection 10/11/2020 10/11/2020 06/04/2023 10:34 PM EDT COVID-19 - Suspected infection 07/15/2021 07/15/2021 06/04/2023 10:35 PM EDT documented as of this encounter Care Teams Sales Administrator Relationship Specialty Start Date End Date Naty Goldstein NP [address] [place] [phone] PCP - General Nurse Practitioner 07/03/23 12/28/24 documented as of this encounter
--- NOTE | 2025-06-10 09:27 | ED_ITS ---
HPI - General Adult General Chief complaint: General Medical Stated complaint: quest yeast infection legs drainage Time Seen by Provider: 06/10/25 09:08 History of Present Illness ED Provider: SILVIA Keller HPI narrative: 64-year-old female with persistent rash of bilateral breasts, and on the right eye. This is the 3rd visit in the department for same symptoms. Patient was most recently seen on 06/01/2025 and was prescribed prednisone taper. Patient states she has been taking the taper but still has persistent itching between the breasts and noticed that the rash has expanded below the breast line and up to the neck line. Patient has not followed up with Dermatology. MD complaint: rash Related Data Previous Rx's ?Medication ?Instructions ?Recorded albuterol sulfate 90 mcg/actuation 2 inh inhalation Q4 -6H PRN 01/12/24 breath activated powder inhaler shortness of breath or wheezing #1 ea doxycycline hyclate 100 mg capsule 100 mg PO BID 10 da ys #20 caps 01/12/24 prednisone 20 mg tablet 40 mg (2 x 20 mg) PO DAILY 5 days 01/12/24 #10 tabs dicloxacillin 500 mg capsule 500 mg PO QID 7 days #28 caps 05/24/25 doxycycline monohydrate 100 mg 100 mg PO BID 7 days #1 4 caps 05/24/25 capsule clotrimazole 1 % topical cream 1 appl topical BID #30 grams 05/28/25 hydrocortisone 1 % topical cream 1 appl topical ONCE # 28.35 grams 05/28/25 (Anti-Itch (hydrocortisone)) prednisone 10 mg tablet See Taper PO DAILY #24 tabs 06/01/25 diazepam 5 mg tablet (Valium) 5 mg PO BEDTIME PRN inso mnia #5 06/10/25 tabs diazepam 5 mg tablet (Valium) 5 mg PO BEDTIME PRN slee p #5 tabs 06/10/25 doxycycline hyclate 100 mg capsule 100 mg PO BID #14 c aps 06/10/25 hydroxyzine HCl 25 mg tablet 25 mg PO TID #15 tabs prednisone 10 mg tablets in a dose 10 mg PO DIRECTE D #58 ea 06/10/25 pack Allergies Allergy/AdvReac Type Severity Reaction Status Date / Time cephalexin Allergy Anaphylaxis Verified 06/10/25 08:57 codeine Allergy Anaphylaxis Verified 06/10/25 08:57 morphine Allergy Anaphylaxis Verified 06/10/25 08:57 Review of Systems 2 Review of Systems: CONST: Negative for fever, body aches and chills. HENT: Negative for neck pain/stiffness, headache, congestion, sore throat, swelling. EYES: Negative for discharge/pain or vision changes. RESP: Negative for cough/hemoptysis and shortness of breath. CV: Negative chest pain, difficulty breathing, palpitations. ABD: Negative pain, nausea, vomiting. : Negative increase frequency, dysuria, blood in urine or stool. MUSC: Negative for muscle aches, edema. SKIN: Negative, lesions/sores. POS pruritic rash NEURO: Negative headache, dizziness, weakness. Yes all other systems are reviewed and are negative [facility] Social History Social History Substance Use Type: Marijuana Advance Directives: No Advance Directives Information Provided: No Physical Exam ED Vital Signs: Vital Signs - 24 hr 06/10/25 08:57 Temperature 97.2 F Pulse Rate 94 Respiratory Rate 16 Blood Pressure 146/70 H Pulse Oximetry 94 Oxygen Delivery Method Room Air BMI result Body Mass Index 26.4 GENERAL APPEARANCE: ?AxOx4, generally well-appearing, no acute distress. HEENT: ?NC, AT. MMM. EOMI, clear conjunctiva, oropharynx clear. NECK: ?Supple without lymphadenopathy.? No stiffness or restricted ROM. HEART:? Normal rate and regular rhythm, normal S1/S1, no m/r/g LUNGS:? CTAB, moving air well. No crackles or wheezes are heard. ABDOMEN: ?Soft, nontender, nondistended with good bowel sounds heard. BACK: No CVAT, no obvious deformity. EXTREMITIES: ?Without cyanosis, clubbing or edema. healing rash over distal R lower extremity, with mild warmth. NEUROLOGICAL: ?Grossly nonfocal. Alert and oriented, moving all 4 extremities. Observed to ambulate with normal gait. Skin: ?Warm and dry. Rash between breasts and of R eye. See photos Course Course Course Narrative: Addendum 06/10/25 12:54 CHIO Rhodes: Patient called ED, spoke with Julia, states she was discharged without her paper prescription for valium. RADHA Dumont confirms this but is unable to send prescription electronically due to an IT issue. I will send the prescription for Valium for this patient as written by Julia. Medical Decision Making Medical Decision Making MDM Narrative: 64-year-old female with persistent rash of bilateral breasts, and on the right eye. This is the 3rd visit in the department for same symptoms. Patient was most recently seen on 06/01/2025 and was prescribed prednisone taper. Patient states she has been taking the taper but still has persistent itching between the breasts and noticed that the rash has expanded below the breast line and up to the neck line. Patient has not followed up with Dermatology. On physical exam, right lower extremity and looks to be healing, however does have mild warmth to the leg. On chart review patient did not complete entire course of doxycycline. There is expanding dermatitis of bilateral breasts, and on the right eye. I consulted my attending physician Dr. Mills and we believe this may be an autoimmune dermatitis and needs to be evaluated by a control integration engineer. After discussing the course of medications she has been on, we agreed to add 7 days of doxycycline with an extended prednisone taper. I discussed this with the patient, and counseled her that she needs to be evaluated by a control integration engineer for further management of persistent rash. I have provided patient with Dermatology offices that she can call. I counseled patient to follow up with her primary care provider for possible referral to Dermatology. I counseled patient on strict return precautions. Patient is in agreement with the plan. Differential Diagnosis Differential Diagnoses: The differential diagnosis associated with the presentation includes Cellulitis Contact dermatitis Autoimmune dermatitis Admission/Observation Consideration of admission/observation: Escalation of care including admission/observation considered External Record Review External record reviewed: Inpatient record, Office record and Outpatient record Discharge Plan Discharge Clinical Impression: Dermatitis Patient Disposition: Home, Self-Care Instructions: Cold Compress or Soak (ED) Additional Instructions: You were evaluated in the ED for the rash between the breast, on the right leg, and of the right eye. Your symptoms are most consistent with a nonspecific dermatitis. You will be prescribed a 7 day course of doxycycline for bacterial coverage, an increased prednisone taper dose, hydroxyzine to manage itching, and Valium that you can use take the edge off the itching to get sleep. It is crucial that you follow up with the control integration engineer as this is possibly auto immune related and needs a Specialists for further evaluation and management. Please complete the entire course of doxycycline and taper as prescribed. Follow up with your PCP for possible urgent dermatology referral to be seen sooner. [facility]- [phone] [facility]- [phone] [facility]- [phone] Please return to the emergency department if you experience fevers over 100.4?, chest pain, shortness of breath, worsening rash, or any new/worsening/concerning symptoms. Prescriptions: New doxycycline hyclate 100 mg capsule 100 mg PO BID Qty: 14 0RF prednisone 10 mg tablets,dose pack 10 mg PO DIRECTED Qty: 58 0RF Rx Instructions: Days 1-5: 60 mg (6 pills) Days 6-7: 50 mg (5 pills) Days 8-9: 40mg (4 pills) Days 10-11: 30mg (3 pills) Days 12-13: 20mg (2 pills) Days 14-15: 10mg (1 pill) hydroxyzine HCl 25 mg tablet 25 mg PO TID Qty: 15 0RF diazepam [Valium] 5 mg tablet 5 mg PO BEDTIME PRN (Reason: sleep) Qty: 5 0RF diazepam [Valium] 5 mg tablet 5 mg PO BEDTIME PRN (Reason: insomnia) Qty: 5 0RF No Action albuterol sulfate 90 mcg/actuation aerosol powdr breath activated 2 inh inhalation Q4-6H PRN (Reason: shortness of breath or wheezing) Qty: 1 0RF doxycycline hyclate 100 mg capsule 100 mg PO BID 10 Days Qty: 20 0RF prednisone 20 mg tablet 40 mg PO DAILY 5 Days Qty: 10 0RF doxycycline monohydrate 100 mg capsule 100 mg PO BID 7 Days Qty: 14 0RF dicloxacillin 500 mg capsule 500 mg PO QID 7 Days Qty: 28 0RF clotrimazole 1 % cream 1 appl topical BID Qty: 30 0RF hydrocortisone [Anti-Itch (HC)] 1 % cream 1 appl topical ONCE Qty: 28.35 0RF prednisone 10 mg tablet See Taper PO DAILY Qty: 24 0RF Taper: Prednisone 40 mg daily for 3 Days and 0 Hour 30 mg daily for 3 Days and 0 Hour 20 mg daily for 3 Days and 0 Hour 10 mg daily for 3 Days and 0 Hour Discharge Date/Time: 06/10/25 10:14 Print Language: Citizen Of [place]
== END 2025-06-10 10:14 | disposition home or self-care (01) ==
PROVIDERS: Emergency Provider Emergency Medicine Emergency Medical Services
DX: L30.9 Dermatitis, unspecified (principal)
CPT/HCPCS: 99281; 99283